=== PATIENT | male | born 1930 | race Caucasian/White ===

== ENCOUNTER 2018-01-18 12:30 | Emergency (ER) | payer OTHER, BC ==
[2018-01-18 13:28] LABS: Absolute Lymphocytes (CBC) 2.7 K/uL (0.7-4.9); Absolute Monocytes 0.7 K/uL (0.1-1.3); Absolute Neutrophil 6.7 K/uL (1.8-8.0); Basophils % 0.6 % (0-1.3); Eosinophils % 2.2 % (0-4.4); Lymphocytes % 25.9 % (15.3-44.8); MCH 31.9 pg (27.0-35.0); MCV 91.3 fL (80-100); MPV 9.4 fL (7.6-11.3); Monocytes % 6.8 % (3.3-12.3); RBC Red Blood Cell Count 4.16 M/uL (4.33-5.43)
[2018-01-18 13:36] LABS: Protime INR 1.02
[2018-01-18] MEDS ORDERED: ASPIRIN 81 MG CHEWABLE TABLET ONE (14:25)
--- NOTE | 2018-01-18 14:30 | RAD REPORT ---
EXAM DESCRIPTION: RAD - Chest Single View - 01/18/2018 2:05 pm CLINICAL HISTORY: Abnormal EKG, history of atrial fibrillation, dementia and hypertension COMPARISON: November 2015, June 2016 TECHNIQUE: AP portable chest image was obtained 1339 hours . FINDINGS: Fibrotic lung changes are present similar to the comparison. No superimposed failure, infi ltrate or mass. Pacemaker is in place similar to comparison. Heart and vasculature are normal. No grisel surable pleural effusion and no pneumothorax. No gross bony abnormality seen. No acute aortic finding s suspected. IMPRESSION: Fibrotic lung pattern similar to comparison. No acute finding.
[2018-01-18 14:41] LABS: Albumin 4.4 g/dL (3.4-5.0); Bilirubin Direct 0.1 mg/dL (0-0.2); Bilirubin Total 0.5 mg/dL (0.2-1.0); CKMB Creatine Kinase MB 1.5 ng/mL (0.3-3.6); Magnesium 2.4 mg/dL (1.8-2.4); Potassium 3.9 mmol/L (3.5-5.1); Protein, Total 8.4 g/dL (6.4-8.2)
--- NOTE | 2018-01-18 14:46 | EKG ---
Test Date: 2018-01-18 Test Time: 12:45:46 Security Consultant: DEEPAK MEASUREMENT RESULTS: Intervals: Rate: 68 [place]: 186 QRSD: 148 QT: 428 QTc: 455 [place]: P: 40 [place]: 186 QRS: -83 T: 71 INTERPRETIVE STATEMENTS: AV dual-paced rhythm Abnormal ECG Compared to ECG 07/14/2016 11:40:30 Atrial-sensed ventricular-paced complex(es) or rhythm no longer present Electronically Signed On 01-18-18 14:44:58 CDT by Beto Smith
--- NOTE | 2018-01-18 14:47 | ER ---
Nurse's Notes [facility] Name: Brigido Hargrove Age: 87 yrs Sex: Male : 1930 Arrival Date: 01/18/2018 Time: 12:33 Bed 19 Private MD: Diagnosis: Supraventricular tachycardia;Palpitations;Atrial fibrillation and flutter Presentation: 01/18 12:45 Presenting complaint: Patient states: [facility]. Denies chest pain aj or SOB. Transition of care: patient was not received from another setting of care. Onset of symptoms was January 18, 2018. Risk Assessment: Do you want to hurt yourself or someone else? Patient reports no desire to harm self or others. Initial Sepsis Screen: Does the patient meet any 2 criteria? No. Patient's initial sepsis screen is negative. Does the patient have a suspected source of infection? No. Patient's initial sepsis screen is negative. Care prior to arrival: None. 12:45 Method Of Arrival: Ambulatory aj 12:45 Acuity: DAVID 3 aj Triage Assessment: 12:48 General: Appears in no apparent distress. comfortable, Behavior is calm, cooperative, aj appropriate for age. Pain: Denies pain. Neuro: Level of Consciousness is awake, alert, obeys commands, Oriented to person, place, time, situation, Appropriate for age. Cardiovascular: Denies chest pain, shortness of breath, Capillary refill < 3 seconds in bilateral fingers Patient's skin is warm and dry. Respiratory: Airway is patent Trachea midline Respiratory effort is even, unlabored, Respiratory pattern is regular, symmetrical. Derm: Skin is intact, is healthy with good turgor, Skin is pink, warm \T\ dry. normal. Historical: - Allergies: 12:48 No Known Allergies; aj - Home Meds: 12:48 aspirin 81 mg Oral chew 1 tab once daily [Active]; simvastatin 10 mg Oral tab 1 tab aj once daily [Active]; metoprolol tartrate 50 mg Oral tab 1 tab once daily [Active]; finasteride 5 mg oral tab 1 tab once daily [Active]; sotalol 80 mg oral tab daily [Active]; Verapamil 20mg Oral once daily [Active]; folic acid 1 mg Oral tab 1 tab once daily [Active]; tamsulosin 0.4 mg oral cp24 1 cap once daily [Active]; - PMHx: 12:48 Atrial Fib; Dementia; Glaucoma; Hyperlipidemia; Hypertension; aj - PSHx: 12:48 pacemaker placed; aj - Immunization history:: Adult Immunizations up to date. - Social history:: Smoking status: Patient/guardian denies using tobacco. - Ebola Screening: : Patient negative for fever greater than or equal to 101.5 degrees Fahrenheit, and additional compatible Ebola Virus Disease symptoms Patient denies exposure to infectious person Patient denies travel to an Ebola-affected area in the 21 days before illness onset No symptoms or risks identified at this time. - Family history:: not pertinent, pertinent for. Screenin:51 Abuse screen: Denies threats or abuse. Nutritional screening: No deficits noted. tw2 Tuberculosis screening: No symptoms or risk factors identified. Fall Risk None identified. Assessment: 12:51 General: Appears in no apparent distress. well groomed, Behavior is calm, cooperative, tw2 appropriate for age. Pain: Denies pain. Neuro: Level of Consciousness is awake, alert, obeys commands, Oriented to person, place, time, situation. Cardiovascular: Denies chest pain, shortness of breath. Respiratory: Airway is patent Respiratory effort is even, unlabored, Respiratory pattern is regular, symmetrical, Breath sounds are clear bilaterally. GI: No signs and/or symptoms were reported involving the gastrointestinal system. Abdomen is flat, Bowel sounds present X 4 quads. : No signs and/or symptoms were reported regarding the genitourinary system. EENT: No signs and/or symptoms were reported regarding the EENT system. Derm: No signs and/or symptoms reported regarding the dermatologic system. Skin is intact, is healthy with good turgor, Skin is dry. Musculoskeletal: Range of motion: intact in all extremities. 13:35 Reassessment: Patient appears in no apparent distress at this time. No changes from tw2 previously documented assessment. Patient and/or family updated on plan of care and expected duration. Pain level reassessed. Patient is alert, oriented x 3, equal unlabored respirations, skin warm/dry/pink. 14:19 Reassessment: Patient appears in no apparent distress at this time. No changes from tw2 previously documented assessment. Patient and/or family updated on plan of care and expected duration. Pain level reassessed. Patient is alert, oriented x 3, equal unlabored respirations, skin warm/dry/pink. 15:08 Reassessment: Patient appears in no apparent distress at this time. No changes from tw2 previously documented assessment. Patient and/or family updated on plan of care and expected duration. Pain level reassessed. Patient is alert, oriented x 3, equal unlabored respirations, skin warm/dry/pink. 15:19 Reassessment: Patient appears in no apparent distress at this time. No changes from tw2 previously documented assessment. Patient and/or family updated on plan of care and expected duration. Pain level reassessed. Patient is alert, oriented x 3, equal unlabored respirations, skin warm/dry/pink. Vital Signs: 12:48 BP 189 / 102; Pulse 73; Resp 16; Temp 98.2; Pulse Ox 97% on R/A; Weight 83.91 kg; Height 5 ft. 10 in. (177.80 cm); 13:00 BP 162 / 70; Pulse 60; Resp 17; Pulse Ox 97% on R/A; tw2 13:35 BP 161 / 70; Pulse 60; Resp 14; Pulse Ox 97% on R/A; tw2 14:19 BP 178 / 76; Pulse 60; Resp 14; Pulse Ox 100% on R/A; tw2 15:08 BP 187 / 77; Pulse 60; Resp 17; Pulse Ox 97% on R/A; tw2 12:48 Body Mass Index 26.54 (83.91 kg, 177.80 cm) ED Course: 12:33 Patient arrived in ED. mr 12:43 Harrison Uriostegui MD is Attending Physician. [facility] 12:45 Triage completed. 12:45 Inserted saline lock: 22 gauge in right antecubital area, using aseptic technique. tw2 Blood collected. 12:48 Arm band placed on right ankle. Patient placed in an exam room. EKG completed in triage. Results shown to MD. 12:50 Domi Marte, JESSICA is Primary Nurse. tw2 12:51 Placed in gown. Bed in low position. Side rails up X 1. Adult w/ patient. Cardiac tw2 monitor on. Pulse ox on. NIBP on. 12:53 EKG done, by pathological technician. reviewed by Harrison Uriostegui MD. at1 14:03 X-ray completed. Portable x-ray completed in exam room. Patient tolerated procedure ml well. 14:05 XRAY Chest (1 view) In Process Unspecified. EDMS 14:46 Beto Smith MD is Referral Physician. [facility] 15:19 No provider procedures requiring assistance completed. IV discontinued, intact, tw2 bleeding controlled, No redness/swelling at site. Pressure dressing applied. Administered Medications: 14:23 Drug: Aspirin 81 mg Route: PO; tw2 14:45 Follow up: Response: No adverse reaction tw2 14:45 Drug: Sotalol 80 mg Route: PO; tw2 15:19 Follow up: Response: No adverse reaction tw2 Outcome: 14:46 Discharge ordered by . thong 15:20 Discharged to home ambulatory, with family. tw2 15:20 Condition: stable 15:20 Discharge instructions given to patient, family, Instructed on discharge instructions, follow up and referral plans. medication usage, Demonstrated understanding of instructions, follow-up care, medications, Prescriptions given X 1. 15:20 Patient left the ED. tw2 Signatures: Dispatcher [employer] EDWY Teresita Looney, RN Harrison Lomeli MD MD cha Rivera, Maria mr Lopez, Teresita Mota, waste examiner EKG Tat1 Domi Marte RN RN tw2
--- NOTE | 2018-01-18 14:47 | EDPHYS ---
Physician Documentation [facility] Name: Brigido Hargrove Age: 87 yrs Sex: Male : 1930 Arrival Date: 01/18/2018 Time: 12:33 Bed 19 Private MD: ED Physician Harrison Uriostegui HPI: 01/18 14:19 This 87 yrs old Male presents to ER via Ambulatory with complaints of thong Abnormal EKG. 14:19 The patient presents with a history of heart racing. Context: The symptoms occur. thong Onset: The symptoms/episode began/occurred just prior to arrival, this morning. Duration: The patient or guardian reports a single episode, that lasted 30 minute(s). Modifying factors: The symptoms are aggravated by nothing. The symptoms are alleviated by nothing. Associated signs and symptoms: The patient has no apparent associated signs or symptoms. Severity of symptoms: At their worst the symptoms were mild in the emergency department the symptoms are unchanged. The patient has not experienced similar symptoms in the past. Historical: - Allergies: 12:48 No Known Allergies; aj - Home Meds: 12:48 aspirin 81 mg Oral chew 1 tab once daily [Active]; simvastatin 10 mg Oral tab 1 tab aj once daily [Active]; metoprolol tartrate 50 mg Oral tab 1 tab once daily [Active]; finasteride 5 mg oral tab 1 tab once daily [Active]; sotalol 80 mg oral tab daily [Active]; Verapamil 20mg Oral once daily [Active]; folic acid 1 mg Oral tab 1 tab once daily [Active]; tamsulosin 0.4 mg oral cp24 1 cap once daily [Active]; - PMHx: 12:48 Atrial Fib; Dementia; Glaucoma; Hyperlipidemia; Hypertension; aj - PSHx: 12:48 pacemaker placed; aj - Immunization history:: Adult Immunizations up to date. - Social history:: Smoking status: Patient/guardian denies using tobacco. - Ebola Screening: : Patient negative for fever greater than or equal to 101.5 degrees Fahrenheit, and additional compatible Ebola Virus Disease symptoms Patient denies exposure to infectious person Patient denies travel to an Ebola-affected area in the 21 days before illness onset No symptoms or risks identified at this time. - Family history:: not pertinent, pertinent for. ROS: 14:19 Constitutional: Negative for fever, chills, and weight loss, Eyes: Negative for injury, thong pain, redness, and discharge, ENT: Negative for injury, pain, and discharge, Neck: Negative for injury, pain, and swelling, Respiratory: Negative for shortness of breath, cough, wheezing, and pleuritic chest pain, Abdomen/GI: Negative for abdominal pain, nausea, vomiting, diarrhea, and constipation, Back: Negative for injury and pain, : Negative for injury, bleeding, discharge, and swelling, MS/Extremity: Negative for injury and deformity, Skin: Negative for injury, rash, and discoloration, Neuro: Negative for headache, weakness, numbness, tingling, and seizure, Psych: Negative for depression, anxiety, suicide ideation, homicidal ideation, and hallucinations, Allergy/Immunology: Negative for hives, rash, and allergies, Endocrine: Negative for neck swelling, polydipsia, polyuria, polyphagia, and marked weight changes, Hematologic/Lymphatic: Negative for swollen nodes, abnormal bleeding, and unusual bruising. 14:19 Cardiovascular: Positive for palpitations. Exam: 14:19 Constitutional: This is a well developed, well nourished patient who is awake, alert, thong and in no acute distress. Head/Face: Normocephalic, atraumatic. Eyes: Pupils equal round and reactive to light, extra-ocular motions intact. Lids and lashes normal. Conjunctiva and sclera are non-icteric and not injected. Cornea within normal limits. Periorbital areas with no swelling, redness, or edema. ENT: Nares patent. No nasal discharge, no septal abnormalities noted. Tympanic membranes are normal and external auditory canals are clear. Oropharynx with no redness, swelling, or masses, exudates, or evidence of obstruction, uvula midline. Mucous membranes moist. Neck: Trachea midline, no thyromegaly or masses palpated, and no cervical lymphadenopathy. Supple, full range of motion without nuchal rigidity, or vertebral point tenderness. No Meningismus. Chest/axilla: Normal chest wall appearance and motion. Nontender with no deformity. No lesions are appreciated. Cardiovascular: Regular rate and rhythm with a normal S1 and S2. No gallops, murmurs, or rubs. Normal PMI, no JVD. No pulse deficits. Respiratory: Lungs have equal breath sounds bilaterally, clear to auscultation and percussion. No rales, rhonchi or wheezes noted. No increased work of breathing, no retractions or nasal flaring. Abdomen/GI: Soft, non-tender, with normal bowel sounds. No distension or tympany. No guarding or rebound. No evidence of tenderness throughout. Back: No spinal tenderness. No costovertebral tenderness. Full range of motion. Male : Normal genitalia with no discharge or lesions. Skin: Warm, dry with normal turgor. Normal color with no rashes, no lesions, and no evidence of cellulitis. MS/ Extremity: Pulses equal, no cyanosis. Neurovascular intact. Full, normal range of motion. Neuro: Awake and alert, GCS 15, oriented to person, place, time, and situation. Cranial nerves II-XII grossly intact. Motor strength 5/5 in all extremities. Sensory grossly intact. Cerebellar exam normal. Normal gait. Psych: Awake, alert, with orientation to person, place and time. Behavior, mood, and affect are within normal limits. Vital Signs: 12:48 BP 189 / 102; Pulse 73; Resp 16; Temp 98.2; Pulse Ox 97% on R/A; Weight 83.91 kg; aj Height 5 ft. 10 in. (177.80 cm); 13:00 BP 162 / 70; Pulse 60; Resp 17; Pulse Ox 97% on R/A; tw2 13:35 BP 161 / 70; Pulse 60; Resp 14; Pulse Ox 97% on R/A; tw2 14:19 BP 178 / 76; Pulse 60; Resp 14; Pulse Ox 100% on R/A; tw2 15:08 BP 187 / 77; Pulse 60; Resp 17; Pulse Ox 97% on R/A; tw2 12:48 Body Mass Index 26.54 (83.91 kg, 177.80 cm) aj MDM: 12:43 Patient medically screened. [facility] 14:20 Data reviewed: vital signs, nurses notes, lab test result(s), EKG, radiologic studies, thong plain films. 01/18 13:11 Order name: Basic Metabolic Panel [facility] 01/18 13:11 Order name: CBC with Diff; Complete Time: 14:15 [facility] 01/18 13:11 Order name: Ckmb; Complete Time: 14:44 tw 01/18 13:11 Order name: CPK; Complete Time: 14:44 01/18 13:11 Order name: LFT's; Complete Time: 14:44 tw2 01/18 13:11 Order name: Magnesium; Complete Time: 14:44 01/18 13:11 Order name: NT PRO-BNP; Complete Time: 14:44 01/18 13:11 Order name: PT-INR; Complete Time: 14:15 01/18 13:11 Order name: Ptt, Activated; Complete Time: 14:15 01/18 13:11 Order name: Troponin (emerg Dept Use Only); Complete Time: 14:15 01/18 13:11 Order name: XRAY Chest (1 view); Complete Time: 14:40 tw2 01/18 13:11 Order name: Basic Metabolic Panel; Complete Time: 14:44 EDMS 01/18 13:13 Order name: TSH [facility] 01/18 13:14 Order name: Thyroid Stimulating Hormone; Complete Time: 14:40 EDMS 01/18 13:11 Order name: EKG; Complete Time: 13:12 01/18 13:11 Order name: Cardiac monitoring; Complete Time: 13:11 01/18 13:11 Order name: EKG - Nurse/Tech; Complete Time: 13:12 01/18 13:11 Order name: IV Saline Lock; Complete Time: 13:11 01/18 13:11 Order name: Labs collected and sent; Complete Time: 13:11 01/18 13:11 Order name: O2 Per Protocol; Complete Time: 13:12 01/18 13:11 Order name: O2 Sat Monitoring; Complete Time: 13:12 tw Administered Medications: 14:23 Drug: Aspirin 81 mg Route: PO; 2 14:45 Follow up: Response: No adverse reaction 14:45 Drug: Sotalol 80 mg Route: PO; tw2 15:19 Follow up: Response: No adverse reaction tw Disposition: 01/18/18 14:46 Discharged to Home. Impression: Supraventricular tachycardia, Palpitations, Atrial fibrillation and flutter. - Condition is Stable. - Discharge Instructions: Atrial Fibrillation, Palpitations, Paroxysmal Supraventricular Tachycardia, Paroxysmal Supraventricular Tachycardia, [id number], Aspirin and Your Heart, Palpitations, [id number], Atrial Fibrillation, [id number]. - Prescriptions for sotalol 80 mg Oral tablet - take 1 tablet by ORAL route 3 times per day; 60 tablet. - Medication Reconciliation Form, Thank You Letter, Antibiotic Education, Prescription Opioid Use form. - Follow up: Private Physician; When: 2 - 3 days; Reason: Recheck today's complaints, Continuance of care, Re-evaluation by your physician. Follow up: Beto Smith MD; When: 1 - 2 days; Reason: Recheck today's complaints, Continuance of care, Re-evaluation by your physician. - Problem is new. - Symptoms have improved. Signatures: Dispatcher [employer] EDMS Teresita Looney RN RN Harrison Santos MD MD cha Wise, Tara, RN RN tw2 Corrections: (The following items were deleted from the chart) 15:20 14:46 01/18/2018 14:46 Discharged to Home. Impression: Supraventricular tachycardia; tw2 Palpitations; Atrial fibrillation and flutter. Condition is Stable. Discharge Instructions: Atrial Fibrillation, Palpitations, Paroxysmal Supraventricular Tachycardia, Paroxysmal Supraventricular Tachycardia, [id number], Aspirin and Your Heart, Palpitations, [id number]-[id number], Atrial Fibrillation, Dejv-re-Sptr. Prescriptions for sotalol 80 mg Oral tablet - take 1 tablet by ORAL route 3 times per day; 60 tablet. and Forms are Medication Reconciliation Form, Thank You Letter, Antibiotic Education, Prescription Opioid Use. Follow up: Private Physician; When: 2 - 3 days; Reason: Recheck today's complaints, Continuance of care, Re-evaluation by your physician. Follow up: Beto Smith; When: 1 - 2 days; Reason: Recheck today's complaints, Continuance of care, Re-evaluation by your physician. Problem is new. Symptoms have improved. thong
[2018-01-18] MEDS ORDERED: SOTALOL HCL 80 MG TAB ONE (14:48)
[2018-01-18 15:26] VITALS: TEMP 98.2
[2018-01-18 15:30] VITALS: BP 187/77; O2SAT 97
== END 2018-01-18 15:20 | disposition home or self-care (01) ==
LOC: ER 12:30
DX: I47.1 Supraventricular tachycardia (principal); I48.91 Unspecified atrial fibrillation; E78.5 Hyperlipidemia, unspecified; I10 Essential (primary) hypertension; F03.90 Unspecified dementia, unspecified severity, without behavioral disturbance, psychotic disturbance, mood disturbance, and anxiety; Z95.0 Presence of cardiac pacemaker
CPT/HCPCS: 36415; 71045; 80048; 80076; 82550; 82553; 83735; 83880; 84443; 84484; 85025; 85610; 85730; 93005; 99285

== ENCOUNTER 2018-08-31 15:50 | Inpatient (IN) | payer OTHER, BC ==
[2018-08-31 17:19] LABS: Absolute Lymphocytes (CBC) 1.5 K/uL (0.7-4.9); Absolute Monocytes 1.7 K/uL (0.1-1.3); Absolute Neutrophil 19.8 K/uL (1.8-8.0); Basophils % 0.3 % (0-1.3); Hematocrit 42.1 % (39.6-49.0); Lymphocytes % 6.7 % (15.3-44.8); MPV 9.2 fL (7.6-11.3); Monocytes % 7.4 % (3.3-12.3); RBC Red Blood Cell Count 4.54 M/uL (4.33-5.43)
[2018-08-31 17:24] LABS: Protime INR 1.13
[2018-08-31] MEDS ORDERED: NA CHLORIDE 0.9% 1,000 ML ONE ×2 (17:27→20:00)
[2018-08-31 17:44] LABS: ALT/SGPT 68 U/L (12-78); AST/SGOT 43 U/L (15-37); Albumin 3.4 g/dL (3.4-5.0); Alkaline Phosphatase 129 U/L (45-117); BUN Blood Urea Nitrogen 50 mg/dL (7-18); Bicarbonate 23 mmol/L (21-32); Bilirubin Direct 0.3 mg/dL (0-0.2); Bilirubin Total 0.9 mg/dL (0.2-1.0); Glucose Level 167 mg/dL (74-106); Magnesium 2.8 mg/dL (1.8-2.4); NT PRO-BNP 8631 pg/mL (<450); Potassium 4.7 mmol/L (3.5-5.1); Protein, Total 7.9 g/dL (6.4-8.2); Sodium Level 138 mmol/L (136-145); Troponin (Emerg Dept Use Only) < 0.02 ng/mL (0.0-0.045)
[2018-08-31 17:49] LABS: Urine Blood 2+ (NEG); Urine Glucose NEGATIVE (NEG); Urine Protein 1+ (NEG); Urine Specific Gravity 1.025 (1.005-1.030)
--- NOTE | 2018-08-31 17:51 | RAD REPORT ---
EXAM DESCRIPTION: CT - Head Brain Wo Cont - 08/31/2018 5:42 pm CLINICAL HISTORY: Weakness, lethargy, transient alteration of awareness COMPARISON: December 2008 TECHNIQUE: Axial 5 mm thick images of the head were obtained without IV contrast. All CT scans are performed using dose optimization technique as appropriate and may include automated exposure control or mA/KV adjustment according to patient size. FINDINGS: No intracranial hemorrhage, mass, edema or shift of mid-line structures. No acute cortical based infarction. No cortical edema or sulcal effacement. Patient has advanced atrophy and chronic i schemic change with ventricles in proportion. No abnormal extra-axial fluid collections. Intracranial findings showing some progression from 2008. Mastoid air cells and visualized portions of the paranasal sinuses are clear. No acute bony findings. IMPRESSION: No hemorrhage, mass or acute intracranial finding. Prominent atrophy and chronic ischemic changes are present progressive from 2008. Ventricles are in p roportion.
--- NOTE | 2018-08-31 17:52 | RAD REPORT ---
EXAM DESCRIPTION: RAD - Chest Single View - 08/31/2018 4:34 pm CLINICAL HISTORY: Shortness of breath, cough COMPARISON: December 2017 TECHNIQUE: AP portable chest image was obtained 1630 hours . FINDINGS: Lung volumes are low. No peripheral mass or consolidation. No failure or volume overload. Interstitial pattern is not clearly different from comparison. Heart and vasculature are normal. No m easurable pleural effusion and no pneumothorax. No acute bony abnormality seen. No acute aortic findi ngs suspected. IMPRESSION: Shallow inspiration film showing no acute cardiopulmonary finding. No significant change from comparison.
[2018-08-31 17:53] LABS: Urine Amorphous Sediment 1+ /HPF (NONE SEEN); Urine Bacteria <20 /HPF (NONE SEEN); Urine Culture Reflex Order NOT NEEDED
[2018-08-31 18:08] LABS: Blood Morphology Comment NOT SEEN (NOT SEEN); Platelet Estimate ADEQ
--- NOTE | 2018-08-31 19:07 | RAD REPORT ---
EXAM DESCRIPTION: CT - Chest Abd Pelvis Wo Con - 08/31/2018 6:40 pm CLINICAL HISTORY: Chest pain, abdominal pain, acute renal failure, leukocytosis, altered mental stat us COMPARISON: None. TECHNIQUE: Axial 5 millimeter thick images of the chest abdomen and pelvis were obtained without ora l or IV contrast. All CT scans are performed using dose optimization technique as appropriate and may include automated exposure control or mA/KV adjustment according to patient size. FINDINGS: Airspace opacification is present posterior gutter on the right. There is trace stranding in the posterior gutter on the left. Lung devi are otherwise clear. No pneumothorax or pleural effu fei. No chest wall mass or abnormal axillary lymphadenopathy seen. Mediastinal and hilar regions s how no mass or lymphadenopathy. No significant cardiac finding. The liver, spleen and pancreas show no significant findings. Gallbladder and biliary tree are normal . Gallstones can be occult on CT imaging. No hydronephrosis present. No obstructing or nonobstructing calculi. Along the anteromedial margin mi d right kidney there is a 2.0 x 1.5 centimeter low-density mass. This is in proximity to the renal va sculature. Attenuation value is low at 9 Hounsfield units. This is probably an exophytic cyst. Assess ment is limited in the absence of contrast. No adrenal abnormalities. No urinary bladder abnormaliti es. Prostate gland is mildly prominent. No gastric dilatation or wall thickening. No dilated small bowel loops. There several fluid-filled sm all bowel loops that are nonspecific. Appendicitis is not suspected. Hernandez of the rectum and distal s igmoid colon are prominent. There is soft tissue attenuation in the presacral soft tissues. Small saran unt of ascites is present. Fluid adjacent to the spleen measures 5 Hounsfield units. Intraperitoneal blood is not suspected. There is a minimal amount of ascites adjacent to the liver capsule. No free air or pneumatosis. No mass or bulky lymphadenopathy. Disc and bony degenerative changes are present. No pathologic bone process seen. IMPRESSION: Posterior right lung base pneumonia. Mild wall thickening of the rectum and distal sigmoid colon. This may be an nonspecific proctitis/col itis. No colon mass confirmed. Patient has a small amount of ascites present and congestion or edema in the presacral soft tissues n ear the rectum. Patient has a few prominent small bowel loops that could indicated nonspecific enteritis. No bowel ob struction.
--- NOTE | 2018-08-31 19:29 | EDPHYS ---
Physician Documentation [facility] Name: Brigido Hargrove Age: 87 yrs Sex: Male : 1930 Arrival Date: 08/31/2018 Time: 15:55 Bed 20 Private MD: ED Physician Harrison Uriostegui HPI: 08/31 16:25 This 87 yrs old Male presents to ER via EMS with complaints of Lethargy. cp 16:25 The patient's problem is reported as weakness, that is generalized. cp 16:25 Onset: The symptoms/episode began/occurred gradually, and became worse today. Duration: cp The episode is continuous. Associated signs and symptoms: Pertinent positives: bowel incontinence, Pertinent negatives: abdominal pain, chest pain, headache, vomiting. Patient's baseline: Neuro: orientated to person, place, Motor: no deficits, Ambulation: walks without assistance, Speech: normal. Historical: - Allergies: 17:42 Aspirin; hb - Home Meds: 16:00 aspirin 81 mg Oral chew 1 tab once daily [Active]; finasteride 5 mg Oral tab 1 tab once hb daily [Active]; folic acid 1 mg Oral tab 1 tab once daily [Active]; metoprolol tartrate 50 mg Oral tab 1 tab once daily [Active]; simvastatin 10 mg Oral tab 1 tab once daily [Active]; sotalol 80 mg Oral tab daily [Active]; tamsulosin 0.4 mg Oral cp24 1 cap once daily [Active]; Verapamil 20mg Oral once daily [Active]; - PMHx: 16:00 Glaucoma; Atrial Fib; Dementia; Hyperlipidemia; Hypertension; hb - PSHx: 16:00 pacemaker placed; hb - Immunization history:: Adult Immunizations up to date. - Social history:: Smoking status: Patient/guardian denies using tobacco. - Ebola Screening: : No symptoms or risks identified at this time. ROS: 16:30 Constitutional: Positive for poor PO intake, Negative for body aches, fever. cp 16:30 Eyes: Negative for injury, pain, redness, and discharge. cp 16:30 ENT: Negative for drainage from ear(s), ear pain, sore throat, difficulty swallowing, difficulty handling secretions. 16:30 Cardiovascular: Negative for chest pain, edema. 16:30 Respiratory: Negative for cough, shortness of breath, wheezing. 16:30 Abdomen/GI: Positive for bowel incontinence, Negative for abdominal pain, vomiting, black/tarry stool, rectal bleeding. 16:30 : Negative for urinary symptoms. 16:30 Neuro: Positive for altered mental status, weakness, Negative for headache. 16:30 All other systems are negative. Exam: 16:35 Constitutional: The patient appears in no acute distress, alert, awake, cp non-diaphoretic, non-toxic, well developed, well nourished. 16:35 Head/Face: Normocephalic, atraumatic. cp 16:35 Eyes: Periorbital structures: appear normal, Pupils: equal, round, and reactive to cp light and accomodation, Extraocular movements: intact throughout, Conjunctiva: normal, no exudate, no injection, Sclera: no appreciated abnormality, Lids and lashes: appear normal, bilaterally. 16:35 ENT: External ear(s): are unremarkable, Ear canal(s): are normal, clear, TM's: are normal, no evidence of bulging, no erythema, dullness, bilaterally, Nose: is normal, Mouth: Lips: dry, Oral mucosa: dry, Posterior pharynx: Airway: no evidence of obstruction, patent, swelling, is not appreciated, erythema, is not appreciated, exudate, is not appreciated. 16:35 Neck: ROM/movement: is normal, is supple, without pain, no range of motions limitations, no meningismus, no nuchal rigidity. 16:35 Chest/axilla: Inspection: normal, Palpation: is normal, no crepitus, no tenderness. 16:35 Cardiovascular: Rate: normal, Rhythm: regular, Edema: is not appreciated, JVD: is not cp appreciated. 16:35 Respiratory: the patient does not display signs of respiratory distress, Respirations: normal, no use of accessory muscles, no retractions, no splinting, no tachypnea, labored breathing, is not present, Breath sounds: are clear throughout, no decreased breath sounds, no stridor, no wheezing. 16:35 Abdomen/GI: Inspection: abdomen appears normal, Bowel sounds: active, all quadrants, Palpation: soft, in all quadrants, mild abdominal tenderness, in the right upper quadrant and right lower quadrant, rebound tenderness, is not appreciated, involuntary guarding, is elicited in the right lower quadrant. 16:35 Skin: Appearance: dry, flaky, cellulitis, is not appreciated. 16:35 Neuro: Orientation: to person, place, situation, Mentation: responsive to voice able to follow commands, Motor: moves all fours, general weakness w/o focal deficits. 16:38 ECG was reviewed by the Attending Physician. cp 17:55 Radiologist reports: no acute findings Vital Signs: 15:58 BP 153 / 67; Pulse 81; Resp 16; Temp 98.2; Pulse Ox 97% on R/A; Pain 0/10; hb 17:00 BP 148 / 68; Pulse 74; Resp 16; Pulse Ox 100% on R/A; hb 18:15 BP 158 / 74; Pulse 75; Resp 16; Pulse Ox 99% on R/A; Pain 0/10; hb 19:00 BP 142 / 48; Pulse 72; Resp 23; Temp 98.1(TE); Pulse Ox 98% on R/A; Pain 0/10; ed1 20:00 BP 139 / 52; Pulse 71; Resp 21; Pulse Ox 96% on R/A; Pain 0/10; ed1 21:09 BP 139 / 40; Pulse 81; Resp 20; Temp 98.2(TE); Pulse Ox 98% on R/A; Pain 0/10; ed1 22:23 BP 131 / 49; Pulse 73; Resp 20; Temp 97.6(TE); Pulse Ox 98% on R/A; Pain 0/10; ed1 MDM: 16:11 Patient medically screened. 19:15 Data reviewed: vital signs, nurses notes, lab test result(s), EKG, radiologic studies, cp CT scan, plain films, I have discussed the patient's presentation/case with the attending Emergency Department Physician;. 19:15 Test interpretation: by ED physician or midlevel provider: ECG, plain radiologic cp studies. 19:25 Physician consultation: Johann Kelsey MD was called at 19:20, was contacted at 19:20, regarding admission, to the medical/surgical unit. patient's condition. 08/31 16:20 Order name: Basic Metabolic Panel; Complete Time: 17:49 08/31 17:50 Interpretation: Normal except: GLUC 167; BUN 50; CRE 2.75; GFR 22; CA 8.4. 08/31 16:20 Order name: CBC with Diff; Complete Time: 18:25 cp 08/31 17:55 Interpretation: Normal except: WBC 23.2; SHANEKA% 85.6; LYM% 6.7; NEUT A 19.8; MNA 1.7. cp 08/31 16:20 Order name: LFT's; Complete Time: 17:49 cp 08/31 18:25 Interpretation: Normal except: AST 43; ALK 129; BILID 0.3; GLOB 4.5; A/G 0.8. cp 08/31 16:20 Order name: Magnesium; Complete Time: 17:49 cp 08/31 16:20 Order name: NT PRO-BNP; Complete Time: 17:49 cp 08/31 17:54 Interpretation: Abnormal: NT PRO-BNP 8631. cp 08/31 16:20 Order name: PT-INR; Complete Time: 17:49 cp 08/31 16:20 Order name: Troponin (emerg Dept Use Only); Complete Time: 17:49 cp 08/31 18:26 Interpretation: Abnormal: TROPED < 0.02. cp 08/31 17:15 Order name: Urine Microscopic Only; Complete Time: 17:54 dm5 08/31 17:36 Order name: Urine Dipstick--Ancillary (enter results); Complete Time: 17:53 bd 08/31 17:53 Interpretation: Normal except: UBLD 2+; UPROT 1+. cp 08/31 17:51 Order name: Manual Differential; Complete Time: 18:25 EDMS 08/31 18:25 Interpretation: Normal except: BANDS [F] 14; LYM 7. cp 08/31 17:55 Order name: Procalcitonin; Complete Time: 18:55 cp 08/31 18:56 Interpretation: Abnormal: Procalcitonin 36.27. cp 08/31 17:55 Order name: Lactate; Complete Time: 18:47 cp 08/31 17:55 Order name: Blood Culture Adult (2) cp 08/31 19:15 Order name: Urine Culture cp 08/31 16:20 Order name: XRAY Chest (1 view); Complete Time: 17:54 cp 08/31 17:18 Order name: CT Head Brain wo Cont; Complete Time: 17:54 cp 08/31 18:00 Order name: CT Chest Abdomen Pelvis W/O Contrast; Complete Time: 19:08 cp 08/31 21:08 Order name: Comprehensive Metabolic Panel EDMS 08/31 21:08 Order name: Comprehensive Metabolic Panel; Complete Time: 20:12 EDMS 08/31 21:08 Order name: Lipid Profile EDMS 08/31 21:08 Order name: Lipid Profile; Complete Time: 20:12 EDMS 08/31 21:09 Order name: CBC with Automated Diff EDMS 08/31 21:09 Order name: CBC with Automated Diff; Complete Time: 20:12 EDMS 08/31 21:09 Order name: Magnesium EDMS 08/31 21:09 Order name: Magnesium; Complete Time: 20:12 EDMS 08/31 21:09 Order name: Phosphorus EDMS 08/31 21:09 Order name: Phosphorus; Complete Time: 20:12 EDMS 08/31 21:40 Order name: Lactate Sepsis 2 HR Follow-up; Complete Time: 20:12 EDMS 08/31 16:20 Order name: EKG; Complete Time: 16:22 cp 08/31 16:20 Order name: Cardiac monitoring; Complete Time: 17:01 cp 08/31 16:20 Order name: EKG - Nurse/Tech; Complete Time: 16:32 cp 08/31 16:20 Order name: IV Saline Lock; Complete Time: 17:15 cp 08/31 16:20 Order name: Labs collected and sent; Complete Time: 17:15 cp 08/31 16:20 Order name: O2 Per Protocol; Complete Time: 16:32 cp 08/31 16:20 Order name: O2 Sat Monitoring; Complete Time: 16:32 cp 08/31 16:20 Order name: Cath; Complete Time: 17:01 cp 08/31 19:02 Order name: Staples; Complete Time: 19:45 cp 08/31 21:09 Order name: Regular EDMS EC:38 Rate is 74 beats/min. Rhythm is regular, Paced. QRS interval is normal. T waves are cp Inverted in leads I, II, III, aVF, V2, V3, V4, V5, V6. Interpreted by me. Reviewed by me. Administered Medications: 17:20 Drug: NS 0.9% 500 ml Route: IV; Rate: bolus; Site: right antecubital; hb 17:56 Follow up: Response: No adverse reaction; IV Status: Completed infusion hb 17:56 Drug: NS 0.9% 1000 ml Route: IV; Rate: 75 ml/hr; Site: right antecubital; hb 22:50 Follow up: IV Status: Infusion continued upon admission ed1 19:06 Drug: NS 0.9% 1000 ml Route: IV; Rate: 1 bolus; Site: right antecubital; hb 20:11 Follow up: IV Status: Completed infusion; IV Intake: 1000ml ed1 19:10 Not Given (Physician Discretion): Ciprofloxacin 400 mg 200 ml IVPB once over 60 mins cp 19:54 Drug: NS 0.9% 500 ml Route: IV; Rate: bolus; Site: right forearm; ed1 20:42 Follow up: IV Status: Completed infusion; IV Intake: 500ml ed1 19:54 Drug: Rocephin 1 grams Route: IV; Rate: bolus; Site: right antecubital; ed1 20:11 Follow up: Response: No adverse reaction; IV Status: Completed infusion; IV Intake: [id number] 20:12 Drug: LevaQUIN 500 mg Volume: 100 ml; Route: IVPB; Infused Over: 60 mins; Site: right ed1 antecubital; 21:15 Follow up: Response: No adverse reaction; IV Status: Completed infusion ed1 20:44 Drug: metroNIDAZOLE 500 mg Volume: 100 ml; Route: IVPB; Infused Over: 30 mins; Site: ed1 right forearm; 21:20 Follow up: Response: No adverse reaction; IV Status: Completed infusion ed1 Disposition: 09/01 07:55 Co-signature as Attending Physician, Harrison Uriostegui MD I agree with the assessment and thong plan of care. Disposition: 08/31/18 19:28 Hospitalization ordered by Johann Kelsey for Inpatient Admission. Preliminary diagnosis are Pneumonia due to other specified bacteria - Right lower lobe, Other sepsis, Sigmoid colitis, Acute kidney failure. - Bed requested for Telemetry/MedSurg (Inpatient). - Status is Inpatient Admission. ed1 - Condition is Stable. - Problem is new. - Symptoms have improved. UTI on Admission? No Signatures: Dispatcher [employer] ADRIAAL Harrison Uriostegui MD MD cha Riggs, Erika RN RN ed1 Harrison Franklin PA PA cp Garcia, Cindy, RN RN Ursula Robbins RN RN Corrections: (The following items were deleted from the chart) 08/31 17:50 17:49 Normal except: GLUC 167; BUN 50; CRE 2.75; GFR 22. cp cp 17:55 17:54 Normal except: WBC 23.2; SHANEKA% 85.6; LYM% 6.7. cp cp 19:30 19:28 Hospitalization Ordered by Johann Kelsey MD for Inpatient Admission. Preliminary cp diagnosis is Pneumonia due to other specified bacteria; Other sepsis. Bed requested for Telemetry/MedSurg (Inpatient). Status is Inpatient Admission. Condition is Stable. Problem is new. Symptoms have improved. UTI on Admission? No. cp 22:15 19:30 08/31/2018 19:28 Hospitalization Ordered by Johann Kelsey MD for Inpatient cg Admission. Preliminary diagnosis is Pneumonia due to other specified bacteria - Right lower lobe; Other sepsis; Sigmoid colitis; Acute kidney failure. Bed requested for Telemetry/MedSurg (Inpatient). Status is Inpatient Admission. Condition is Stable. Problem is new. Symptoms have improved. UTI on Admission? No. cp 22:51 22:15 08/31/2018 19:28 Hospitalization Ordered by Johann Kelsey MD for Inpatient ed1 Admission. Preliminary diagnosis is Pneumonia due to other specified bacteria - Right lower lobe; Other sepsis; Sigmoid colitis; Acute kidney failure. Bed requested for Telemetry/MedSurg (Inpatient). Status is Inpatient Admission. Condition is Stable. Problem is new. Symptoms have improved. UTI on Admission? No. cg
--- NOTE | 2018-08-31 19:29 | ER ---
Nurse's Notes [facility] Name: Brigido Hargrove Age: 87 yrs Sex: Male : 1930 Arrival Date: 08/31/2018 Time: 15:55 Bed 20 Private MD: Diagnosis: Pneumonia due to other specified bacteria-Right lower lobe;Other sepsis;Sigmoid colitis;Acute kidney failure Presentation: 08/31 15:56 Presenting complaint: EMS states: Daughter reports he is more argumentative than normal hb and is lethargic. Hx of dementia, AOx2 at baseline. SBP 120s, Paced 60, BGL 138, 22g RIGHT wrist. Transition of care: patient was not received from another setting of care. Onset of symptoms was August 31, 2018. Risk Assessment: Do you want to hurt yourself or someone else? Patient reports no desire to harm self or others. Care prior to arrival: None. 15:56 Method Of Arrival: EMS: [facility] 15:56 Acuity: DAVID 3 hb Triage Assessment: 16:05 General: Appears in no apparent distress. Behavior is calm, cooperative. Pain: Denies hb pain. EENT: No signs and/or symptoms were reported regarding the EENT system. Neuro: Level of Consciousness is awake, alert, obeys commands, confused, Oriented to person, place. Cardiovascular: Heart tones S1 S2 present Capillary refill < 3 seconds Patient's skin is warm and dry. Respiratory: Airway is patent Respiratory effort is even, unlabored, Respiratory pattern is regular, symmetrical, Breath sounds are clear bilaterally. GI: No signs and/or symptoms were reported involving the gastrointestinal system. : No signs and/or symptoms were reported regarding the genitourinary system. Derm: Skin is intact, is healthy with good turgor. Musculoskeletal: No signs and/or symptoms reported regarding the musculoskeletal system. Historical: - Allergies: 17:42 Aspirin; hb - Home Meds: 16:00 aspirin 81 mg Oral chew 1 tab once daily [Active]; finasteride 5 mg Oral tab 1 tab once hb daily [Active]; folic acid 1 mg Oral tab 1 tab once daily [Active]; metoprolol tartrate 50 mg Oral tab 1 tab once daily [Active]; simvastatin 10 mg Oral tab 1 tab once daily [Active]; sotalol 80 mg Oral tab daily [Active]; tamsulosin 0.4 mg Oral cp24 1 cap once daily [Active]; Verapamil 20mg Oral once daily [Active]; - PMHx: 16:00 Glaucoma; Atrial Fib; Dementia; Hyperlipidemia; Hypertension; hb - PSHx: 16:00 pacemaker placed; hb - Immunization history:: Adult Immunizations up to date. - Social history:: Smoking status: Patient/guardian denies using tobacco. - Ebola Screening: : No symptoms or risks identified at this time. Screenin:01 Abuse screen: Denies threats or abuse. Denies injuries from another. Nutritional hb screening: No deficits noted. Tuberculosis screening: No symptoms or risk factors identified. Fall Risk Total Guzman Fall Scale indicates High Risk Score (45 or more points). Fall prevention measures have been instituted. Side Rails Up X 2 Placed Close to Nursing Station Frequent Obs/Assessments Occuring As available patient and family educated on Fall Prevention Program and Strategies. Assessment: 16:06 General: see triage assessment. hb 17:00 Reassessment: Patient appears in no apparent distress at this time. No changes from hb previously documented assessment. Patient and/or family updated on plan of care and expected duration. Pain level reassessed. 18:00 Reassessment: Patient appears in no apparent distress at this time. No changes from hb previously documented assessment. Patient and/or family updated on plan of care and expected duration. Pain level reassessed. 19:00 Reassessment: Patient appears in no apparent distress at this time. Patient and/or ed1 family updated on plan of care and expected duration. Pain level reassessed. Neuro: Level of Consciousness is awake, alert, Oriented to person. 20:00 Reassessment: Patient appears in no apparent distress at this time. No changes from ed1 previously documented assessment. Patient and/or family updated on plan of care and expected duration. Pain level reassessed. Neuro: Level of Consciousness is awake, alert, Oriented to person. 21:09 Reassessment: Patient appears in no apparent distress at this time. No changes from ed1 previously documented assessment. Patient and/or family updated on plan of care and expected duration. Pain level reassessed. Vital Signs: 15:58 BP 153 / 67; Pulse 81; Resp 16; Temp 98.2; Pulse Ox 97% on R/A; Pain 0/10; hb 17:00 BP 148 / 68; Pulse 74; Resp 16; Pulse Ox 100% on R/A; hb 18:15 BP 158 / 74; Pulse 75; Resp 16; Pulse Ox 99% on R/A; Pain 0/10; hb 19:00 BP 142 / 48; Pulse 72; Resp 23; Temp 98.1(TE); Pulse Ox 98% on R/A; Pain 0/10; ed1 20:00 BP 139 / 52; Pulse 71; Resp 21; Pulse Ox 96% on R/A; Pain 0/10; ed1 21:09 BP 139 / 40; Pulse 81; Resp 20; Temp 98.2(TE); Pulse Ox 98% on R/A; Pain 0/10; ed1 22:23 BP 131 / 49; Pulse 73; Resp 20; Temp 97.6(TE); Pulse Ox 98% on R/A; Pain 0/10; ed1 ED Course: 15:55 Patient arrived in ED. hb 15:58 Triage completed. hb 15:59 Arm band placed on. hb 16:01 Patient has correct armband on for positive identification. Placed in gown. Bed in low hb position. Call light in reach. Side rails up X2. 16:11 Harrison Franklin PA is PHCP. cp 16:11 Harrison Uriostegui MD is Attending Physician. cp 16:14 Ursula Robbins, RN is Primary Nurse. hb 16:31 EKG done, by technical sales representatives. reviewed by Harrison BANKS. sm3 16:33 X-ray completed. Portable x-ray completed in exam room. Patient tolerated procedure az well. 16:34 XRAY Chest (1 view) In Process Unspecified. EDMS 17:02 Maintain EMS IV. Dressing intact. Site clean \T\ dry. Gauge \T\ site: no blood return, hb flushes easily. 17:05 Inserted saline lock: 20 gauge in right antecubital area, using aseptic technique. hb Blood collected. 17:42 CT Head Brain wo Cont In Process Unspecified. EDMS 18:[address] via stretcher. vm2 18:41 CT completed. Patient tolerated procedure well. Patient moved back from CT. nj 18:44 CT Chest Abdomen Pelvis W/O Contrast In Process Unspecified. EDMS 19:18 Primary Nurse role handed off by Ursula Robbins, RN ed1 19:18 OwensMariaa fernandez RN is Primary Nurse. ed1 19:28 Johann Kelsey MD is Hospitalizing Provider. cp 19:45 Staples cath inserted, using sterile technique, 16 Fr., by e learning coordinator, balloon inflated, to ed1 gravity drainage, urine specimen collected. returned clear yellow urine. Patient tolerated well. 20:00 Awaiting bed assignment. ed1 21:11 Awaiting bed assignment. ed1 22:23 No provider procedures requiring assistance completed. Patient admitted, IV remains in ed1 place. intact, No redness/swelling at site. Administered Medications: 17:20 Drug: NS 0.9% 500 ml Route: IV; Rate: bolus; Site: right antecubital; hb 17:56 Follow up: Response: No adverse reaction; IV Status: Completed infusion hb 17:56 Drug: NS 0.9% 1000 ml Route: IV; Rate: 75 ml/hr; Site: right antecubital; hb 22:50 Follow up: IV Status: Infusion continued upon admission ed1 19:06 Drug: NS 0.9% 1000 ml Route: IV; Rate: 1 bolus; Site: right antecubital; hb 20:11 Follow up: IV Status: Completed infusion; IV Intake: 1000ml ed1 19:10 Not Given (Physician Discretion): Ciprofloxacin 400 mg 200 ml IVPB once over 60 mins cp 19:54 Drug: NS 0.9% 500 ml Route: IV; Rate: bolus; Site: right forearm; ed1 20:42 Follow up: IV Status: Completed infusion; IV Intake: 500ml ed1 19:54 Drug: Rocephin 1 grams Route: IV; Rate: bolus; Site: right antecubital; ed1 20:11 Follow up: Response: No adverse reaction; IV Status: Completed infusion; IV Intake: [id number] 20:12 Drug: LevaQUIN 500 mg Volume: 100 ml; Route: IVPB; Infused Over: 60 mins; Site: right ed1 antecubital; 21:15 Follow up: Response: No adverse reaction; IV Status: Completed infusion ed1 20:44 Drug: metroNIDAZOLE 500 mg Volume: 100 ml; Route: IVPB; Infused Over: 30 mins; Site: ed1 right forearm; 21:20 Follow up: Response: No adverse reaction; IV Status: Completed infusion ed1 Intake: 20:11 IV: 1000ml; Total: 1000ml. ed1 20:11 IV: 10ml; Total: 1010ml. ed1 20:42 IV: 500ml; Total: 1510ml. ed1 Output: 22:50 Urine: 120ml (Staples); Total: 120ml. ed1 Outcome: 19:28 Decision to Hospitalize by Provider. cp 22:48 Admitted to Med/surg accompanied by tech, family with patient, via stretcher, room 220, ed1 with chart, Report called to JESSICA Yap 22:48 Condition: stable 22:48 Discharge instructions given to family, Instructed on the need for admit, Demonstrated understanding of instructions. 22:51 Patient left the ED. ed1 Signatures: Dispatcher [employer] EDMS Mariaa Owens RN RN ed1 Harrison Franklin PA PA cp Baxter, Heather, RN RN [place] [facility] Angy Toure 3 Mini Mcneal Corrections: (The following items were deleted from the chart) 17:47 17:45 BP 148 / 68; Pulse 74bpm; Resp 16bpm; Pulse Ox 100% RA; hb hb
[2018-08-31] MEDS ORDERED: Levofloxacin500mg IV 500 MG/100 ML BAG IV ONE (19:59)
[2018-08-31] MEDS ORDERED: METRONIDAZOLE 500mg IVPB 500 MG/100 ML BAG IV ONE (20:00)
[2018-08-31] MEDS ORDERED: CEFTRIAXONE/SWI 1gm 1 GM/10 ML SYR ONE (20:00)
[2018-08-31] MEDS ORDERED: IPRATROPIUM BROM 0.5MG/2.5ML NEB PRN (21:03)
[2018-08-31] MEDS ORDERED: MAGNESIUM HYDROXIDE 8% 30 ML PO PRN (21:03)
[2018-08-31] MEDS ORDERED: ONDANSETRON 4 MG/2 ML VIAL IV PRN (21:03)
[2018-08-31] MEDS ORDERED: ACETAMINOPHEN 500 MG TAB PO PRN (21:03)
[2018-08-31] MEDS ORDERED: ALBUTEROL 2.5 MG/3 ML NEB SOL NEB PRN (21:03)
[2018-08-31] MEDS: NA CHLORIDE 0.9% 1,000 ML IV SCH (23:53)
[2018-09-01 01:37] VITALS: BMI 22.9
[2018-09-01] MEDS ORDERED: SOTALOL HCL 80 MG TAB PO SCH (06:00)
[2018-09-01 06:06] LABS: Absolute Lymphocytes (CBC) 1.1 K/uL (0.7-4.9); Absolute Monocytes 1.3 K/uL (0.1-1.3); Absolute Neutrophil 15.8 K/uL (1.8-8.0); Basophils % 0.4 % (0-1.3); Hematocrit 34.7 % (39.6-49.0); Lymphocytes % 6.3 % (15.3-44.8); MPV 9.3 fL (7.6-11.3); Monocytes % 6.9 % (3.3-12.3); RBC Red Blood Cell Count 3.76 M/uL (4.33-5.43)
[2018-09-01 06:29] LABS: Albumin 2.6 g/dL (3.4-5.0); Bilirubin Total 0.6 mg/dL (0.2-1.0); Magnesium 2.5 mg/dL (1.8-2.4); Phosphorus 3.7 mg/dL (2.5-4.9); Potassium 4.2 mmol/L (3.5-5.1); Protein, Total 6.2 g/dL (6.4-8.2)
[2018-09-01] MEDS: ENOXAPARIN 30 MG/0.3 ML SQ SCH (08:30)
[2018-09-01] MEDS: CLOPIDOGREL 75 MG TABLET PO SCH (08:31)
[2018-09-01] MEDS: FINASTERIDE 5 MG TAB PO SCH (08:31)
[2018-09-01] MEDS: TAMSULOSIN 0.4 MG SR CAP PO SCH ×2 (08:31→22:09)
[2018-09-01] MEDS: SOTALOL HCL 80 MG TAB PO SCH ×2 (08:31→18:17)
[2018-09-01] MEDS ORDERED: CEFTRIAXONE 1 GM/NS 50 ML 1 GM/50 ML BAG IV SCH (09:00)
[2018-09-01] MEDS ORDERED: ENOXAPARIN 40 MG/0.4 ML SQ SCH (09:00)
[2018-09-01] MEDS ORDERED: AZITHROMYCIN IV 500 MG in NA CHLORIDE 0.9% 250 ML IVPB SCH (09:00)
[2018-09-01] MEDS ORDERED: ENOXAPARIN 30 MG/0.3 ML SQ SCH (09:00)
[2018-09-01] MEDS ORDERED: CEFTRIAXONE/SWI 1gm 1 GM/10 ML SYR IV SCH (09:00)
--- NOTE | 2018-09-01 10:33 | EKG ---
Test Date: 2018-08-31 Test Time: 16:25:36 Independent Living Instructor: VINCE MEASUREMENT RESULTS: Intervals: Rate: 74 VT: 176 QRSD: 84 QT: 434 QTc: 481 [place]: P: 53 VT: 176 QRS: 40 T: 261 INTERPRETIVE STATEMENTS: Rhythm consistent with DDD pacing tracking sinus rhythm with frequent premature atrial complexes T inversion, non specific Abnormal ECG Compared to ECG 01/18/2018 12:45:46 premature atrial complexes are now present most of the QRS complexes are fusion complexes Electronically Signed On 08-31-18 17:45:28 CDT by Breezy Larios
[2018-09-01] MEDS: NA CHLORIDE 0.9% 1,000 ML IV SCH (11:20)
--- NOTE | 2018-09-01 15:10 | P.PN ---
Subjective Date of Service: 09/01/18 Pt seen and examined at bedside. Chart Reviewed. pt currently on Bedside commode. Doing well overall overnight. This Am still continue to have Diarrhea. No other c/o Review of Systems 10-point ROS is otherwise unremarkable Physical Examination - Vital Signs Temperature: 97.5 F Blood Pressure: 138/61 Pulse: 76 Respirations: 18 Pulse Ox (%): 96 - Physical Exam General: Alert, In no apparent distress HEENT: Atraumatic, PERRLA, EOMI Neck: Supple, JVD not distended Respiratory: Clear to auscultation bilaterally, Normal air movement Cardiovascular: Regular rate/rhythm, Normal S1 S2 Gastrointestinal: Normal bowel sounds, No tenderness Musculoskeletal: No tenderness Integumentary: No rashes Neurological: Normal speech, Normal tone, Normal affect Lymphatics: No axilla or inguinal lymphadenopathy - Studies Laboratory Data (last 24 hrs) 08/31/18 17:08: PT 13.3 H, INR 1.13 08/31/18 17:08: WBC 23.2 H*, Hgb 14.2, Hct 42.1, Plt Count 273 08/31/18 17:08: Sodium 138, Potassium 4.7, BUN 50 H, Creatinine 2.75 H, Glucose 167 H, Magnesium 2.8 H, Total Bilirubin 0.9, AST 43 H, ALT 68, Alkaline Phosphatase 129 H Medications List Reviewed: Yes Assessment And Plan - Current Problems (Diagnosis) (1) Sepsis Current Visit: Yes Status: Acute Plan: Sepsis likely 2.2 to PNA and Colitis -IV Cipro and Flagyl for now -Culture pending at this time -Cdiff negative -F.u with Culture and deescalate Antibiotics -WBC trending down Qualifiers: Sepsis type: sepsis due to unspecified organism Qualified Code(s): A41.9 - Sepsis, unspecified organism (2) PNA (pneumonia) Current Visit: Yes Status: Acute Plan: Right LL PNA. Elevated WBC and Procal -IV cipro and Flagyl -Sputum Culture pending -Will monitor closely Qualifiers: Pneumonia type: due to unspecified organism Laterality: right Lung location: lower lobe of lung Qualified Code(s): J18.1 - Lobar pneumonia, unspecified organism (3) Colitis Current Visit: Yes Status: Acute Plan: Abd CT with Sigmoid Colitis including rectum -IV cipro and flagyl -Stool studies Pending. Cdiff negative -IV fluids -CLD for now (4) Atrial fibrillation Current Visit: No Status: Acute (5) Dementia Current Visit: Yes Status: Chronic Qualifiers: Dementia type: unspecified type Dementia behavioral disturbance: without behavioral disturbance Qualified Code(s): F03.90 - Unspecified dementia without behavioral disturbance (6) HTN (hypertension) Current Visit: Yes Status: Chronic Qualifiers: Hypertension type: essential hypertension Qualified Code(s): I10 - Essential (primary) hypertension (7) Hyperlipidemia Current Visit: Yes Status: Chronic Qualifiers: Hyperlipidemia type: mixed hyperlipidemia Qualified Code(s): E78.2 - Mixed hyperlipidemia - Plan Pending Clinical Improvement. Continue with IV abx and pending culture Discharge Plan: Other Plan to discharge in: Greater than 2 days - Code Status/Comfort Care Code Status Assessed: Yes Critical Care: No
[2018-09-01] MEDS: CIPROFLOXACIN 400mg IV 400 MG/200 ML BAG IV SCH (16:27)
[2018-09-01] MEDS: METRONIDAZOLE 500mg IVPB 500 MG/100 ML BAG IV SCH (16:35)
[2018-09-01] MEDS ORDERED: CIPROFLOXACIN 400mg IV 400 MG/200 ML BAG IV SCH (21:00)
[2018-09-01] MEDS: DONEPEZIL HCL 5 MG TAB PO SCH (22:09)
[2018-09-02] MEDS: NA CHLORIDE 0.9% 1,000 ML IV SCH ×2 (00:40→08:47)
[2018-09-02] MEDS: METRONIDAZOLE 500mg IVPB 500 MG/100 ML BAG IV SCH ×3 (01:35→16:27)
[2018-09-02] MEDS: SOTALOL HCL 80 MG TAB PO SCH ×2 (05:41→17:41)
--- NOTE | 2018-09-02 07:41 | P.HP ---
Certification for Inpatient Patient admitted to: Inpatient With expected LOS: >2 Midnights Patient will require the following post-hospital care: None Practitioner: I am a practitioner with admitting privileges, knowledge of patient current condition, hospital course, and medical plan of care. Services: Services provided to patient in accordance with Admission requirements found in Title 42 Section 412.3 of the Code of Federal Regulations Patient History Date of Service: 08/31/18 Reason for admission: Altered mental status History of Present Illness: Patient is an 87-year-old gentleman who came into the hospital with altered mentation. Patient had been in his normal state of health up until about 2-3 days ago when he started behaving differently. He was not willing to do much of anything. He was lying on the couch quite a bit. He has some nausea vomiting and diarrhea. She brought him into the hospital for further evaluation. In the emergency room he was found to have a right lower lobe pneumonia, mild colitis, questionable renal mass, as well as acute renal insufficiency. Patient be admitted to the hospital for IV hydration and IV antibiotic therapy. Patient also has very dry skin which she has had since he was a child. He has not been using any lotion on his legs. He will need to do this and follow with Dermatology Allergies No Known Allergies Allergy (Unverified 08/31/18 23:29) Home Medications: Aspirin 81 mg PO DAILY 08/31/18 Finasteride 5 mg PO DAILY 08/31/18 Folic Acid 1 mg PO DAILY 08/31/18 Metoprolol Tartrate 50 mg PO BID 08/31/18 Simvastatin 10 mg PO BEDTIME 08/31/18 Sotalol HCl [Sotalol AF] 80 mg PO BID 08/31/18 Tamsulosin [Flomax] 0.4 mg PO BEDTIME 08/31/18 Verapamil HCl [Verapamil ER] 120 mg PO BID 08/31/18 Aspirin [Aspirin EC 81 MG] 81 mg PO BEDTIME 09/01/18 Clopidogrel Bisulfate [Plavix] 75 mg PO DAILY 09/01/18 Ubidecarenone [Co Q-10] 200 mg PO DAILY 09/01/18 Vitamin B Complex [B Complex] 1 each PO BID 09/01/18 - Past Medical/Surgical History Has patient received pneumonia vaccine in the past: Yes Diabetic: No -: HTN -: hyperlipidemia -: Afib -: Dementia -: pacemaker insertion - Family History Father Medical History: Heart disease, Hypertension - Social History Smoking Status: Never smoker Alcohol use: No CD- Drugs: No Caffeine use: Yes Place of Residence: Home Review of Systems 10-point ROS is otherwise unremarkable Physical Examination - Vital Signs Temperature: 97.5 F Blood Pressure: 158/70 Pulse: 66 Respirations: 18 Pulse Ox (%): 96 - Physical Exam General: Alert, In no apparent distress, Demented, Confused HEENT: Atraumatic, PERRLA, Mucous membr. moist/pink, EOMI, Sclerae nonicteric Neck: Supple, 2+ carotid pulse no bruit, No LAD, Without JVD or thyroid abnormality Respiratory: Clear to auscultation bilaterally, Normal air movement Cardiovascular: Regular rate/rhythm, Normal S1 S2, No murmurs Gastrointestinal: Normal bowel sounds, Soft and benign, Non-distended, No tenderness, No rebound, No guarding Musculoskeletal: No tenderness Integumentary: No rashes Neurological: Normal speech, Normal tone, Sensation intact, Cranial nerves 3-12 intact, Normal affect, Abnormal gait, Abnormal strength Lymphatics: No axilla or inguinal lymphadenopathy - Studies Microbiology Data (last 24 hrs): 08/31/18 19:42 Catheterized Urine [place] Count - Final 08/31/18 19:42 Catheterized Urine - Final No growth. Assessment & Plan - Problems (Diagnosis) (1) Colitis Current Visit: Yes Status: Acute (2) PNA (pneumonia) Current Visit: Yes Status: Acute Qualifiers: Pneumonia type: due to unspecified organism Laterality: right Lung location: lower lobe of lung Qualified Code(s): J18.1 - Lobar pneumonia, unspecified organism (3) Sepsis Current Visit: Yes Status: Acute Qualifiers: Sepsis type: sepsis due to unspecified organism Qualified Code(s): A41.9 - Sepsis, unspecified organism (4) Dementia Current Visit: Yes Status: Chronic Qualifiers: Dementia type: unspecified type Dementia behavioral disturbance: without behavioral disturbance Qualified Code(s): F03.90 - Unspecified dementia without behavioral disturbance (5) HTN (hypertension) Current Visit: Yes Status: Chronic Qualifiers: Hypertension type: essential hypertension Qualified Code(s): I10 - Essential (primary) hypertension (6) Hyperlipidemia Current Visit: Yes Status: Chronic Qualifiers: Hyperlipidemia type: mixed hyperlipidemia Qualified Code(s): E78.2 - Mixed hyperlipidemia (7) Atrial fibrillation Current Visit: No Status: Acute - Plan 1. Continue with IV hydration 2. Continue with IV antibiotics 3. Continue with pain control 4. Full liquid diet 5. GI, Dermatology, & urology consultation as an outpatient; outpatient colonoscopy as well as repeat CT scan to evaluate renal lesion in 6-12 weeks 6. Serial H&H, and we will monitor CBC, BMP, LFTs and lipase along with electrolytes. 7. Patient may benefit from placement in the near future 8. GI and DVT prophylaxis Discharge Plan: Home Plan to discharge in: Greater than 2 days - Advance Directives Does patient have a Living Will: No Does patient have a Durable POA for Healthcare: Yes - Code Status/Comfort Care Code Status Assessed: Yes Code Status: Full Code Critical Care: No Time Spent Managing PTS Care (In Minutes): 45
[2018-09-02] MEDS: FINASTERIDE 5 MG TAB PO SCH (08:49)
[2018-09-02] MEDS: TAMSULOSIN 0.4 MG SR CAP PO SCH ×2 (08:49→21:03)
[2018-09-02] MEDS: CLOPIDOGREL 75 MG TABLET PO SCH (08:50)
[2018-09-02] MEDS: ENOXAPARIN 30 MG/0.3 ML SQ SCH (08:50)
--- NOTE | 2018-09-02 09:19 | P.PN ---
Subjective Date of Service: 09/02/18 Chief Complaint: Altered mental status, pneumonia, colitis Subjective: Tolerating diet, Improving, Working w/ PT Mr. Hargrove was seen and evaluated this morning. Doing well. No new complaints. No shortness of breath, chest pain, cough, fevers, or abdominal pain. Urine output tea colored. Will repeat CBC, BMP. CXR tomorrow AM. Otherwise overall better today. Adding PT consult to see how he does with ambulation and strength. WBC still elevated. Will continue antibiotics and increase fluids. Added lamotil and probiotic as well <Maximo Kong - Last Filed: 09/02/18 09:14> Date of Service: 09/02/18 <Dennis Jara - Last Filed: 09/02/18 14:21> Review of Systems General: Unremarkable Eyes: Unremarkable ENT: Unremarkable Respiratory: Unremarkable Cardiovascular: Unremarkable Gastrointestinal: Unremarkable Genitourinary: Unremarkable Musculoskeletal: Unremarkable Integumentary: Unremarkable Neurological: Unremarkable Lymphatics: Unremarkable <Maximo Kong - Last Filed: 09/02/18 09:14> Physical Examination - Vital Signs Temperature: 97.1 F Blood Pressure: 171/71 Pulse: 64 Respirations: 15 Pulse Ox (%): 96 - Physical Exam General: Alert, In no apparent distress, Oriented x3, Cooperative HEENT: Normocephalic, PERRLA, Mucous membr. moist/pink Neck: 2+ carotid pulse no bruit, JVD not distended, No Thyromegaly Respiratory: Clear to auscultation bilaterally, Normal air movement Cardiovascular: No edema, Normal pulses, Regular rate/rhythm, Normal S1 S2, No gallops, No rubs, No murmurs Capillary refill: <2 Seconds Gastrointestinal: Normal bowel sounds, Soft and benign, Non-distended, No tenderness, No masses, No rebound, No guarding Musculoskeletal: No clubbing, No swelling, No contractures, No erythema, No tenderness, No warmth Integumentary: No rashes, No breakdown, No significant lesion, No tenderness/ swelling, No erythema, No warmth, No cyanosis Neurological: Normal speech, Normal strength at 5/5 x4 extr, Normal tone, Sensation intact, Cranial nerves 3-12 intact, Normal reflexes 2+, Normal affect Urinary: Staples catheter (Tea colored urine. Mild decrease in urine output ) - Studies Microbiology Data (last 24 hrs): 08/31/18 19:42 Catheterized Urine [place] Count - Final 08/31/18 19:42 Catheterized Urine - Final No growth. Medications List Reviewed: Yes <Maximo Kong - Last Filed: 09/02/18 09:14> - Studies Microbiology Data (last 24 hrs): 08/31/18 19:42 Catheterized Urine [place] Count - Final 08/31/18 19:42 Catheterized Urine - Final No growth. <Dennis Jara - Last Filed: 09/02/18 14:21> Assessment & Plan - Problems (Diagnosis) (1) Colitis Current Visit: Yes Status: Acute (2) PNA (pneumonia) Current Visit: Yes Status: Acute Qualifiers: Pneumonia type: due to unspecified organism Laterality: right Lung location: lower lobe of lung Qualified Code(s): J18.1 - Lobar pneumonia, unspecified organism (3) Dementia Current Visit: Yes Status: Chronic Qualifiers: Dementia type: unspecified type Dementia behavioral disturbance: without behavioral disturbance Qualified Code(s): F03.90 - Unspecified dementia without behavioral disturbance (4) HTN (hypertension) Current Visit: Yes Status: Chronic Qualifiers: Hypertension type: essential hypertension Qualified Code(s): I10 - Essential (primary) hypertension (5) Hyperlipidemia Current Visit: Yes Status: Chronic Qualifiers: Hyperlipidemia type: mixed hyperlipidemia Qualified Code(s): E78.2 - Mixed hyperlipidemia Discharge Plan: Home Plan to discharge in: 48 Hours <Maximo Kong - Last Filed: 09/02/18 09:14> Physician Review Additional Text: Patient seen and evaluate with DARREN Gomez. Patient continues to improve. Reports that his diarrhea is resolving. He is getting more strength. Continue with IV antibiotics. Will add Lomotil and Lactobacillus. Will have PT to ambulate. Renal function improved. Anticipate discharge as early as tomorrow if Lab improved and clinically better. He may require HH/PT at discharge. Social work to assess. Dr. Wolff to take over care tomorrow. Time Spent Managing Pts Care (In Minutes): 55 <Dennis Jara - Last Filed: 09/02/18 14:21>
[2018-09-02 09:23] LABS: Absolute Lymphocytes (CBC) 1.3 K/uL (0.7-4.9); Absolute Monocytes 0.8 K/uL (0.1-1.3); Absolute Neutrophil 13.1 K/uL (1.8-8.0); Basophils % 0.1 % (0-1.3); Eosinophils % 0.1 % (0-4.4); Hematocrit 30.6 % (39.6-49.0); Lymphocytes % 8.5 % (15.3-44.8); MPV 9.7 fL (7.6-11.3); Monocytes % 5.2 % (3.3-12.3); RBC Red Blood Cell Count 3.32 M/uL (4.33-5.43)
[2018-09-02 09:48] LABS: Magnesium 2.3 mg/dL (1.8-2.4); Potassium 3.7 mmol/L (3.5-5.1)
[2018-09-02] MEDS ORDERED: POTASSIUM CL SA 10 MEQ TAB PO ONE (10:46)
[2018-09-02] MEDS: NACHLORIDE 0.45% 1,000 ML IV SCH ×2 (11:10→20:00)
[2018-09-02] MEDS: DIPHENOX/ATROP SULF 1 TAB PO PRN ×2 (13:09→21:04)
[2018-09-02 14:04] LABS: Urine Appearance CLOUDY; Urine Blood 3+ (NEG); Urine Color RED; Urine Glucose NEGATIVE (NEG); Urine Protein 2+ (NEG); Urine Specific Gravity 1.025 (1.005-1.030)
[2018-09-02 14:10] LABS: Urine Bilirubin NEGATIVE (NEG)
[2018-09-02 14:25] LABS: Urine Bacteria <20 /HPF (NONE SEEN); Urine Mucus 1+ /HPF (NONE SEEN); Urine RBC TNTC /HPF (NONE SEEN)
[2018-09-02 14:28] LABS: Urine Culture Reflex Order NOT NEEDED
[2018-09-02] MEDS: CIPROFLOXACIN 400mg IV 400 MG/200 ML BAG IV SCH (16:26)
[2018-09-02] MEDS: ATORVASTATIN 10 MG TAB PO SCH (21:03)
[2018-09-02] MEDS: DONEPEZIL HCL 5 MG TAB PO SCH (21:04)
[2018-09-02] MEDS: LACTOBACILLUS/ACIDOPHILUS TAB PO SCH (21:04)
[2018-09-02] MEDS: VITAMIN B COMPLEX 1 CAP PO SCH (21:04)
[2018-09-03] MEDS: NACHLORIDE 0.45% 1,000 ML IV SCH ×4 (00:26→16:00)
[2018-09-03] MEDS: METRONIDAZOLE 500mg IVPB 500 MG/100 ML BAG IV SCH ×3 (00:28→17:15)
[2018-09-03] MEDS: SOTALOL HCL 80 MG TAB PO SCH ×2 (05:56→17:15)
[2018-09-03 06:45] LABS: Absolute Monocytes 0.8 K/uL (0.1-1.3); Absolute Neutrophil 11.4 K/uL (1.8-8.0); Basophils % 0.2 % (0-1.3); Eosinophils % 0.6 % (0-4.4); Hematocrit 30.1 % (39.6-49.0); Lymphocytes % 13.9 % (15.3-44.8); MPV 9.3 fL (7.6-11.3); Monocytes % 5.9 % (3.3-12.3); RBC Red Blood Cell Count 3.26 M/uL (4.33-5.43)
[2018-09-03 07:02] LABS: Magnesium 2.1 mg/dL (1.8-2.4); Potassium 3.9 mmol/L (3.5-5.1)
[2018-09-03 08:05] LABS: Blood Morphology Comment NOT SEEN (NOT SEEN); Platelet Estimate ADEQ; Platelets, Giant MODERATE
[2018-09-03] MEDS: VITAMIN B COMPLEX 1 CAP PO SCH ×2 (08:36→20:37)
[2018-09-03] MEDS: COENZYME Q10- 200 MG CAP PO SCH (08:36)
[2018-09-03] MEDS: FINASTERIDE 5 MG TAB PO SCH (08:36)
[2018-09-03] MEDS: TAMSULOSIN 0.4 MG SR CAP PO SCH ×2 (08:36→20:32)
[2018-09-03] MEDS: LACTOBACILLUS/ACIDOPHILUS TAB PO SCH ×2 (08:36→20:32)
[2018-09-03] MEDS: FOLIC ACID 1 MG TABLET PO SCH (08:36)
[2018-09-03] MEDS: ENOXAPARIN 30 MG/0.3 ML SQ SCH (08:37)
[2018-09-03] MEDS: CLOPIDOGREL 75 MG TABLET PO SCH (08:38)
[2018-09-03] MEDS ORDERED: POTASSIUM CL SA 10 MEQ TAB PO ONE (09:00)
--- NOTE | 2018-09-03 11:16 | RAD REPORT ---
EXAM DESCRIPTION: RAD - Chest Pa And Lat (2 Views) - 09/03/2018 6:01 am CLINICAL HISTORY: follow up pneumonia Chest pain. COMPARISON: Chest Single View dated 08/31/2018; Chest Single View dated 01/18/2018; Chest Single View dated 12/06/2015; CHEST SINGLE VIEW dated 04/13/2013; Chest Abd Pelvis Wo Con dated 08/31/2018 FINDINGS: Mild airspace opacity in the right lung base with a small right pleural effusion noted lik mey representing pneumonia. The lungs are otherwise clear. Trace left pleural effusion is also seen. The heart is normal in size. Dual lead pacer device is present. IMPRESSION: Small posterior right lung base pneumonia persists.
[2018-09-03 12:34] LABS: Hematocrit 31.6 % (39.6-49.0)
[2018-09-03] MEDS: CIPROFLOXACIN 400mg IV 400 MG/200 ML BAG IV SCH (16:09)
--- NOTE | 2018-09-03 17:03 | PN ---
Date of Progress Note: 09/03/2018 Subjective: Patient seen and examined. Chart reviewed and case discussed with RN. The patient doing well overall. Did have episode of bright red blood per rectum this morning. Code status do not resuscitate. Code status: DNR Medications: List reviewed. Physical Examination: Vital Signs: Temperature 97.1, heart rate 67, blood pressure 170/78, respirations 15, O2 is 100% on room air. General: Awake, alert, oriented x3, not in any acute distress. Elderly male, appears frail. CV: S1, S2. Regular rate and rhythm. Peripheral pulses present. Respiratory: Moving air well bilaterally. No wheezing or stridor. Gastrointestinal: Abdomen is soft, nontender, nondistended. Positive bowel sounds. Extremities: No clubbing, cyanosis, or edema. Neuro: Cranial nerves 2-12 intact grossly. No focal neurological deficit. Speech is normal. Laboratory Data: Sodium 141, potassium 3.9, chloride 111, CO2 25, BUN 24, creatinine 1.08, glucose 109, calcium 7.7, magnesium 2.1. Procalcitonin 4.37. H and H 10 and 30. WBC is 14.4. Repeat H and H are 10.7 and 31.6, neutrophils 79%. C. diff assay is negative. Stool culture, no Salmonella, Shigella or Campylobacter. Blood cultures shows coagulase-negative Staph which is likely a contaminant. Chest x-ray shows small posterior right lung base pneumonia persists, compared to 08/31/2018. Assessment And Plan: 1. Colitis. Continue antibiotics, improving, likely viral versus bacterial. The patient able to tolerate his diet. 2. Acute gastrointestinal bleed. The patient did have some bright red blood per rectum this morning. H and H are stable. No GI is available at this time. We will continue to monitor. 3. Pneumonia, right lower lobe. Chest x-ray shows persistent infiltrate. Clinically, however, patient is significantly better. Blood cultures are negative to date, does have contaminant of coagulase-negative Staph in 1 out of 4 bottles. 4. Alzheimer's dementia, early onset without behavioral disturbance. We will continue to monitor. 5. Essential hypertension, stable. 6. Hyperlipidemia, we will continue statin. 7. Deep vein thrombosis prophylaxis. We will hold Lovenox due to bleed. We will place SCDs. Plan: Likely discharge home in a.m. if no further bleeding and H and H remains stable. /CHALINO Voice ID: [id number] Report ID: [id number] MTDZora
[2018-09-03] MEDS: DIPHENOX/ATROP SULF 1 TAB PO PRN (20:32)
[2018-09-03] MEDS: DONEPEZIL HCL 5 MG TAB PO SCH (20:32)
[2018-09-03] MEDS: ATORVASTATIN 10 MG TAB PO SCH (20:32)
[2018-09-04] MEDS: METRONIDAZOLE 500mg IVPB 500 MG/100 ML BAG IV SCH ×3 (00:30→16:03)
[2018-09-04] MEDS: NACHLORIDE 0.45% 1,000 ML IV SCH ×3 (00:30→22:12)
[2018-09-04] MEDS: SOTALOL HCL 80 MG TAB PO SCH ×2 (05:40→17:56)
[2018-09-04 07:15] LABS: Absolute Lymphocytes (CBC) 1.9 K/uL (0.7-4.9); Absolute Neutrophil 9.8 K/uL (1.8-8.0); Basophils % 0.2 % (0-1.3); Eosinophils % 1.8 % (0-4.4); Hematocrit 29.1 % (39.6-49.0); Lymphocytes % 14.4 % (15.3-44.8); MPV 9.1 fL (7.6-11.3); Monocytes % 7.5 % (3.3-12.3); RBC Red Blood Cell Count 3.15 M/uL (4.33-5.43)
[2018-09-04 07:31] LABS: Magnesium 1.8 mg/dL (1.8-2.4); Potassium 3.6 mmol/L (3.5-5.1)
[2018-09-04] MEDS ORDERED: MAGNESIUM SULFATE 1 gm IVPB 1 GM/100 ML BAG IV ONE (09:00)
[2018-09-04] MEDS ORDERED: POTASSIUM CL SA 10 MEQ TAB PO ONE (09:00)
[2018-09-04] MEDS: COENZYME Q10- 200 MG CAP PO SCH (09:27)
[2018-09-04] MEDS: TAMSULOSIN 0.4 MG SR CAP PO SCH ×2 (09:27→22:11)
[2018-09-04] MEDS: VITAMIN B COMPLEX 1 CAP PO SCH ×2 (09:27→22:12)
[2018-09-04] MEDS: FINASTERIDE 5 MG TAB PO SCH (09:27)
[2018-09-04] MEDS: FOLIC ACID 1 MG TABLET PO SCH (09:28)
[2018-09-04] MEDS: LACTOBACILLUS/ACIDOPHILUS TAB PO SCH ×2 (09:28→22:12)
[2018-09-04] MEDS: CIPROFLOXACIN 400mg IV 400 MG/200 ML BAG IV SCH (16:03)
--- NOTE | 2018-09-04 16:11 | PN ---
Date of Progress Note: 09/04/2018 Subjective: The patient seen and examined. Chart reviewed and case discussed with RN. The patient' s daughter requesting [facility] facility placement. The patient has not had any further bowel movements today with blood. Medications list reviewed. Physical Examination: Vital Signs: Temperature 97.2, heart rate 66, blood pressure 146/68, respirations 16, O2 96% on room air. General: Awake, alert, oriented x3, no acute distress. Elderly male, frail. CV: S1, S2. No murmurs. Peripheral pulses present. Respiratory: Moving air well bilaterally. No wheezing. Gastrointestinal: Abdomen is soft, nontender, nondistended. Positive bowel sounds. Extremities: No clubbing, cyanosis, or edema. Neurologic: Nonfocal. Laboratory Data: Sodium 142, potassium 3.6, chloride 111, CO2 25, BUN 18, creatinine 0.88, glucose 1 13, calcium 7.4, magnesium is 1.8. WBC is 12.9, H and H 9.7/29.1, platelets 205, neutrophils 76%. Assessment: An 87-year-old male with: 1.Acute colitis. Continue IV antibiotics, bacterial versus viral. The patient has been tolerating his diet. Pain is improved. 2.Acute gastrointestinal bleed. The patient had bright red blood per rectum yesterday. We will sugey ck Hemoccult as well. Unfortunately, no GI is available for consultation. Lovenox has been held, ma y be due to colitis versus medication. We will continue to monitor. 3.Right lower lobe pneumonia. Chest x-ray reviewed from yesterday shows persistent infiltrate. Cli nically, the patient is significantly better. Continue IV antibiotics. Cultures are negative to geoffrey e. 4.Alzheimer's dementia, early onset, without behavioral disturbance, stable. 5.Essential hypertension, stable. 6.Hyperlipidemia. Continue statin. 7.Atrial fibrillation, paroxysmal. The patient is on sotalol. 8.Deep vein thrombosis prophylaxis. No chemical anticoagulation due to gastrointestinal bleed. Con tinue with SCDs. Plan: The patient is medically stable, however, family requesting [facility] facility placement . Case Management has been consulted. Discharge once accepted to [facility] facility. /MODL Voice ID: [id number] Report ID: [id number]
[2018-09-04] MEDS: DIPHENOX/ATROP SULF 1 TAB PO PRN (22:11)
[2018-09-04] MEDS: ATORVASTATIN 10 MG TAB PO SCH (22:11)
[2018-09-04] MEDS: DONEPEZIL HCL 5 MG TAB PO SCH (22:12)
[2018-09-05] MEDS: METRONIDAZOLE 500mg IVPB 500 MG/100 ML BAG IV SCH ×3 (00:59→16:57)
[2018-09-05] MEDS: SOTALOL HCL 80 MG TAB PO SCH ×2 (05:00→18:03)
[2018-09-05 07:05] LABS: Absolute Lymphocytes (CBC) 1.5 K/uL (0.7-4.9); Absolute Monocytes 1.1 K/uL (0.1-1.3); Absolute Neutrophil 8.8 K/uL (1.8-8.0); Basophils % 0.3 % (0-1.3); Eosinophils % 2.3 % (0-4.4); Hematocrit 28.9 % (39.6-49.0); Lymphocytes % 12.9 % (15.3-44.8); MPV 8.6 fL (7.6-11.3); Monocytes % 9.1 % (3.3-12.3); RBC Red Blood Cell Count 3.16 M/uL (4.33-5.43)
[2018-09-05 07:14] LABS: Magnesium 1.8 mg/dL (1.8-2.4); Potassium 3.4 mmol/L (3.5-5.1)
[2018-09-05] MEDS: NACHLORIDE 0.45% 1,000 ML IV SCH (08:14)
[2018-09-05] MEDS: COENZYME Q10- 200 MG CAP PO SCH (08:56)
[2018-09-05] MEDS: TAMSULOSIN 0.4 MG SR CAP PO SCH ×2 (08:56→21:09)
[2018-09-05] MEDS: FINASTERIDE 5 MG TAB PO SCH (08:56)
[2018-09-05] MEDS: FOLIC ACID 1 MG TABLET PO SCH (08:57)
[2018-09-05] MEDS: LACTOBACILLUS/ACIDOPHILUS TAB PO SCH ×2 (08:57→21:08)
[2018-09-05] MEDS: VITAMIN B COMPLEX 1 CAP PO SCH ×2 (08:57→21:09)
[2018-09-05] MEDS ORDERED: POTASSIUM 25 MEQ EFFERV TAB PO ONE ×2 (09:00→16:54)
[2018-09-05] MEDS ORDERED: MAGNESIUM SULFATE 1 gm IVPB 1 GM/100 ML BAG IV ONE (09:00)
[2018-09-05] MEDS: CIPROFLOXACIN 400mg IV 400 MG/200 ML BAG IV SCH (16:56)
--- NOTE | 2018-09-05 17:53 | P.PN ---
Subjective Date of Service: 09/05/18 Chief Complaint: Altered mental status, pneumonia, colitis Subjective: Improving Physical Examination - Vital Signs Temperature: 97.7 F Blood Pressure: 171/77 Pulse: 66 Respirations: 16 Pulse Ox (%): 96 - Physical Exam General: Alert, In no apparent distress, Demented HEENT: Atraumatic Neck: Supple Respiratory: Clear to auscultation bilaterally, Normal air movement Cardiovascular: Normal pulses, Regular rate/rhythm Gastrointestinal: Normal bowel sounds, No tenderness, No masses, No rebound, No guarding Neurological: Normal speech, Normal strength at 5/5 x4 extr, Normal tone, Dementia - Studies Microbiology Data (last 24 hrs): 08/31/18 18:20 Blood - Blood Aerobic Blood Culture - Final 08/31/18 18:20 Blood - Blood Gram Stain - Final 08/31/18 18:20 Blood - Blood Anaerobic Blood Culture - Final No growth in 5 days. Medications List Reviewed: Yes Assessment & Plan Discharge Plan: Other (detention facility) Plan to discharge in: 24 Hours Physician Review Additional Text: Impression: Acute colitis complicated with right lower lobe pneumonia Alzheimer's dementia Hypertension Atrial fibrillation Plan: Continue antibiotic treatment. Will transition to oral medication. Patient much improved. Will recheck chest x-ray. Patient off nasal cannula. Continue other medications. Patient on DVT prophylaxis. Renal function improved. H&H stable. Patient to be transferred to skilled facility once approved. Continue with physical therapy at this time. Case discussed with social service assistant and family. Time Spent Managing Pts Care (In Minutes): 55
[2018-09-05] MEDS: ATORVASTATIN 10 MG TAB PO SCH (21:09)
[2018-09-05] MEDS: metroNIDAZOLE 500 MG TABLET PO SCH (21:09)
[2018-09-05] MEDS: DONEPEZIL HCL 5 MG TAB PO SCH (21:09)
[2018-09-05] MEDS: CIPROFLOXACIN HCL 500 MG TAB PO SCH (21:09)
[2018-09-06 05:19] LABS: Absolute Lymphocytes (CBC) 2.1 K/uL (0.7-4.9); Absolute Monocytes 1.2 K/uL (0.1-1.3); Absolute Neutrophil 6.9 K/uL (1.8-8.0); Basophils % 0.4 % (0-1.3); Eosinophils % 2.7 % (0-4.4); Hematocrit 27.9 % (39.6-49.0); Lymphocytes % 19.8 % (15.3-44.8); MPV 8.5 fL (7.6-11.3); Monocytes % 11.6 % (3.3-12.3); RBC Red Blood Cell Count 3.07 M/uL (4.33-5.43)
[2018-09-06] MEDS: SOTALOL HCL 80 MG TAB PO SCH ×2 (05:43→18:00)
[2018-09-06 05:59] LABS: BUN Blood Urea Nitrogen 11 mg/dL (7-18); Bicarbonate 25 mmol/L (21-32); Glucose Level 102 mg/dL (74-106); Potassium 3.3 mmol/L (3.5-5.1); Sodium Level 143 mmol/L (136-145)
[2018-09-06] MEDS ORDERED: KCL 20 MEQ/100 mL IVPB 20 MEQ/100 ML BAG IV SCH (07:30)
[2018-09-06] MEDS: TAMSULOSIN 0.4 MG SR CAP PO SCH ×2 (08:24→21:06)
[2018-09-06] MEDS: FOLIC ACID 1 MG TABLET PO SCH (08:24)
[2018-09-06] MEDS: VITAMIN B COMPLEX 1 CAP PO SCH ×2 (08:24→21:05)
[2018-09-06] MEDS: CIPROFLOXACIN HCL 500 MG TAB PO SCH ×2 (08:24→21:06)
[2018-09-06] MEDS: metroNIDAZOLE 500 MG TABLET PO SCH ×3 (08:24→21:06)
[2018-09-06] MEDS: LACTOBACILLUS/ACIDOPHILUS TAB PO SCH ×2 (08:24→21:05)
[2018-09-06] MEDS: COENZYME Q10- 200 MG CAP PO SCH (08:26)
[2018-09-06] MEDS: FINASTERIDE 5 MG TAB PO SCH (08:27)
--- NOTE | 2018-09-06 08:27 | RAD REPORT ---
EXAM DESCRIPTION: RAD - Chest Pa And Lat (2 Views) - 09/06/2018 8:08 am CLINICAL HISTORY: Follow up pneumonia Chest pain. COMPARISON: Chest Pa And Lat (2 Views) dated 09/03/2018; Chest Single View dated 08/31/2018; Chest Sin gle View dated 01/18/2018; Chest Single View dated 12/06/2015 FINDINGS: Bibasilar lung opacities with small bilateral pleural effusions appears slightly worse com pared to the prior study. The heart is upper limit normal in size with dual lead pacer device present . No displaced fractures. IMPRESSION: Mild worsening in bibasilar lung aeration since comparative study.
[2018-09-06] MEDS ORDERED: NA CHLORIDE 0.9% 250 ML ONE (08:41)
--- NOTE | 2018-09-06 09:15 | P.DS ---
Admission Date: 08/31/18 Discharge Date: 09/06/18 Primary Care Provider: unknown Disposition: CT HOME/HOME HEALTH CARE Discharge Condition: FAIR Reason for Admission: Altered mental status, pneumonia, colitis Consultations: none Procedures: CT scan: FINDINGS: Airspace opacification is present posterior gutter on the right. There is trace stranding in the posterior gutter on the left. Lung devi are otherwise clear. No pneumothorax or pleural effusion. No chest wall mass or abnormal axillary lymphadenopathy seen. Mediastinal and hilar regions show no mass or lymphadenopathy. No significant cardiac finding. The liver, spleen and pancreas show no significant findings. Gallbladder and biliary tree are normal. Gallstones can be occult on CT imaging. No hydronephrosis present. No obstructing or nonobstructing calculi. Along the anteromedial margin mid right kidney there is a 2.0 x 1.5 centimeter low- density mass. This is in proximity to the renal vasculature. Attenuation value is low at 9 Hounsfield units. This is probably an exophytic cyst. Assessment is limited in the absence of contrast. No adrenal abnormalities. No urinary bladder abnormalities. Prostate gland is mildly prominent. No gastric dilatation or wall thickening. No dilated small bowel loops. There several fluid-filled small bowel loops that are nonspecific. Appendicitis is not suspected. Hernandez of the rectum and distal sigmoid colon are prominent. There is soft tissue attenuation in the presacral soft tissues. Small amount of ascites is present. Fluid adjacent to the spleen measures 5 Hounsfield units. Intraperitoneal blood is not suspected. There is a minimal amount of ascites adjacent to the liver capsule. No free air or pneumatosis. No mass or bulky lymphadenopathy. Disc and bony degenerative changes are present. No pathologic bone process seen. IMPRESSION: Posterior right lung base pneumonia. Mild wall thickening of the rectum and distal sigmoid colon. This may be an nonspecific proctitis/colitis. No colon mass confirmed. Patient has a small amount of ascites present and congestion or edema in the presacral soft tissues near the rectum. Patient has a few prominent small bowel loops that could indicated nonspecific enteritis. No bowel obstruction. CXR: FINDINGS: Mild airspace opacity in the right lung base with a small right pleural effusion noted likely representing pneumonia. The lungs are otherwise clear. Trace left pleural effusion is also seen. The heart is normal in size. Dual lead pacer device is present. IMPRESSION: Small posterior right lung base pneumonia persists. Medical Problem list: Sepsis secondary to acute distal sigmoid colitis complicated with right lower lobe pneumonia Alzheimer's dementia Hypertension Chronic atrial fibrillation not on chronic anti coagulation therapy History of dual pacemaker BPH Hyperlipidemia Brief History of Present Illness: 87-year-old male presented to the emergency room with nausea, vomiting and diarrhea. Patient found to have right lower lobe pneumonia with distal sigmoid colitis. Patient was admitted for treatment. Patient with multiple medical problems including dementia, chronic atrial fibrillation, hypertension, hyperlipidemia and BPH. Hospital Course: Patient presented with distal sigmoid colitis and right lower lobe pneumonia. Patient treated with IV antibiotic therapy. Patient improved. At discharge he is without any significant abdominal pain, nausea and vomiting. Repeat pro calcitonin significantly improved. He reports no significant shortness of breath. Patient was evaluated by physical therapy. It was recommended that the patient be sent to a skilled facility prior to going home. Patient accepted. Prior discharge family decided to take the patient home as the patient had improved instead a going to a skilled facility. Arrangements for home health and physical therapy will be arranged prior to discharge. At discharge he will continue with Levaquin 500 mg daily and Flagyl 500 mg 3 times a day for 5 more days. Patient will also continue with lactobacillus 1 pill twice daily. Recommend to recheck chest x-ray in 2-4 weeks to monitor resolution. Recommend to follow up with GI in 4-6 weeks as the patient may require a colonoscopy in the future to further address. This may not be required if improved especially due to his age and chronic medical problems. Patient with chronic atrial fibrillation. Patient with dual pacemaker. Prior to discharge medications were reviewed as patient's medication list included sotalol, metoprolol and diltiazem. Daughter reports that sotalol had been discontinued by Cardiology-Dr. Larios recently. This was to be replaced with metoprolol likely just for rate control. At discharge patient will continue with metoprolol 50 mg 1 pill twice daily. Sotalol to be discontinued. Patient not on chronic anti coagulation therapy. Patient with hypertension. Patient will continue with his medication including metoprolol 50 mg 1 pill twice daily. He is to hold his blood pressure medication if blood pressure systolic less than 120. Further adjustment can be done by his PCP or cardiology. Patient with dementia. Patient will continue with multi vitamins. Patient may follow up with neurology as directed. Patient with advanced directives indicating do not resuscitate. Patient with BPH. Patient will continue with finasteride 5 mg daily and Flomax 0.4 mg daily. Patient with hyperlipidemia. Patient continue with Zocor 10 mg daily. Vital Signs/Physical Exam: Temp Pulse Resp BP Pulse Ox 97.7 F 70 18 153/72 H 93 09/06/18 04:00 09/06/18 04:00 09/06/18 04:00 09/06/18 04:00 09/06/18 04:00 General: Alert, In no apparent distress, Oriented x3, Cooperative HEENT: Atraumatic Neck: Supple Respiratory: Clear to auscultation bilaterally, Normal air movement Cardiovascular: Normal pulses, Regular rate/rhythm Gastrointestinal: Normal bowel sounds, Soft and benign, Non-distended, No tenderness, No masses, No rebound, No guarding Musculoskeletal: No erythema, No tenderness, No warmth Integumentary: No tenderness/swelling, No erythema, No warmth, No cyanosis Neurological: Normal speech, Normal strength at 5/5 x4 extr, Normal tone, Dementia Laboratory Data at Discharge: WBC 10.6 K/uL (4.3-10.9) 09/06/18 04:25 Hgb 9.6 g/dL (13.6-17.9) L 09/06/18 04:25 Hct 27.9 % (39.6-49.0) L 09/06/18 04:25 Plt Count 231 K/uL (152-406) 09/06/18 04:25 PT 13.3 SECONDS (9.5-12.5) H 08/31/18 17:08 INR 1.13 08/31/18 17:08 Sodium 143 mmol/L (136-145) 09/06/18 04:25 Potassium 3.3 mmol/L (3.5-5.1) L 09/06/18 07:44 BUN 11 mg/dL (7-18) 09/06/18 04:25 Creatinine 0.80 mg/dL (0.55-1.3) 09/06/18 04:25 Glucose 102 mg/dL (74-106) 09/06/18 04:25 Phosphorus 3.7 mg/dL (2.5-4.9) 09/01/18 05:46 Magnesium 2.0 mg/dL (1.8-2.4) 09/06/18 04:25 Total Bilirubin 0.6 mg/dL (0.2-1.0) 09/01/18 05:46 AST 38 U/L (15-37) H 09/01/18 05:46 ALT 44 U/L (12-78) 09/01/18 05:46 Alkaline Phosphatase 94 U/L (45-117) 09/01/18 05:46 Triglycerides 138 mg/dL (<150) 09/01/18 05:46 Cholesterol 114 mg/dL (<200) 09/01/18 05:46 HDL Cholesterol 32 mg/dL (40-60) L 09/01/18 05:46 Cholesterol/HDL Ratio 3.56 09/01/18 05:46 Home Medications: Finasteride 5 mg PO DAILY 08/31/18 Folic Acid 1 mg PO DAILY 08/31/18 Simvastatin 10 mg PO BEDTIME 08/31/18 Tamsulosin [Flomax*] 0.4 mg PO BEDTIME 08/31/18 Aspirin [Aspirin EC 81 MG] 81 mg PO BEDTIME 09/01/18 Ubidecarenone [Co Q-10] 200 mg PO DAILY 09/01/18 Vitamin B Complex [B Complex] 1 each PO BID 09/01/18 Lactobacillus Acidophilus [Acidophilus Lactobacilli] 1 each PO BID #60 capsule 09/06/18 Levofloxacin [Levaquin] 500 mg PO DAILY #5 tablet 09/06/18 metroNIDAZOLE [Flagyl*] 500 mg PO TID #15 tablet 09/06/18 New Medications: Lactobacillus Acidophilus [Acidophilus Lactobacilli] 1 each PO BID #60 capsule Levofloxacin [Levaquin] 500 mg PO DAILY #5 tablet metroNIDAZOLE [Flagyl*] 500 mg PO TID #15 tablet Patient Discharge Instructions: 1. Patient will follow up with PCP. 2. Patient presented with distal sigmoid colitis and right lower lobe pneumonia. Patient treated with IV antibiotic therapy. Patient improved. At discharge he is without any significant abdominal pain, nausea and vomiting. Repeat pro calcitonin significantly improved. He reports no significant shortness of breath. Patient was evaluated by physical therapy. It was recommended that the patient be sent to a skilled facility prior to going home. Patient accepted. Prior discharge family decided to take the patient home as the patient had improved instead a going to a skilled facility. Arrangements for home health and physical therapy will be arranged prior to discharge. At discharge he will continue with Levaquin 500 mg daily and Flagyl 500 mg 3 times a day for 5 more days. Patient will also continue with lactobacillus 1 pill twice daily. Recommend to recheck chest x-ray in 2-4 weeks to monitor resolution. Recommend to follow up with GI in 4-6 weeks as the patient may require a colonoscopy in the future to further address. This may not be required if improved especially due to his age and chronic medical problems. 3. Patient with chronic atrial fibrillation. Patient with dual pacemaker. Prior to discharge medications were reviewed as patient's medication list included sotalol, metoprolol and diltiazem. Daughter reports that sotalol had been discontinued by Cardiology-Dr. Larios recently. This was to be replaced with metoprolol likely just for rate control. At discharge patient will continue with metoprolol 50 mg 1 pill twice daily. Sotalol to be discontinued. Patient not on chronic anti coagulation therapy. 4. Patient with hypertension. Patient will continue with his medication including metoprolol 50 mg 1 pill twice daily. He is to hold his blood pressure medication if blood pressure systolic less than 120. Further adjustment can be done by his PCP or cardiology. 5. Patient with dementia. Patient will continue with multi vitamins. Patient may follow up with neurology as directed. Patient with advanced directives indicating do not resuscitate. 6. Patient with BPH. Patient will continue with finasteride 5 mg daily and Flomax 0.4 mg daily. 7. Patient with hyperlipidemia. Patient continue with Zocor 10 mg daily. Diet: GI soft diet Activity: Fall precautions Time spent managing pt's care (in minutes): 55
[2018-09-06] MEDS ORDERED: KCL 20 MEQ/100 mL IVPB 20 MEQ/100 ML BAG IV ONE (11:45)
[2018-09-06] MEDS ORDERED: POTASSIUM CL SA 10 MEQ TAB PO ONE (21:00)
[2018-09-06] MEDS: ATORVASTATIN 10 MG TAB PO SCH (21:05)
[2018-09-06] MEDS: DIPHENOX/ATROP SULF 1 TAB PO PRN (21:05)
[2018-09-06] MEDS: DONEPEZIL HCL 5 MG TAB PO SCH (21:06)
[2018-09-07] MEDS ORDERED: HYDRALAZINE HCL 20 MG/ML VIAL IV PRN (01:15)
[2018-09-07] MEDS: SOTALOL HCL 80 MG TAB PO SCH (05:38)
[2018-09-07 06:10] LABS: BUN Blood Urea Nitrogen 12 mg/dL (7-18); Bicarbonate 25 mmol/L (21-32); Glucose Level 100 mg/dL (74-106); Magnesium 1.9 mg/dL (1.8-2.4); Phosphorus 2.4 mg/dL (2.5-4.9); Potassium 3.4 mmol/L (3.5-5.1); Sodium Level 143 mmol/L (136-145)
[2018-09-07 06:14] LABS: Absolute Lymphocytes (CBC) 2.2 K/uL (0.7-4.9); Absolute Monocytes 1.1 K/uL (0.1-1.3); Basophils % 0.4 % (0-1.3); Hematocrit 30.1 % (39.6-49.0); Lymphocytes % 20.5 % (15.3-44.8); MPV 8.4 fL (7.6-11.3); Monocytes % 10.4 % (3.3-12.3); RBC Red Blood Cell Count 3.31 M/uL (4.33-5.43)
[2018-09-07] MEDS ORDERED: POTASSIUM CL SA 10 MEQ TAB PO ONE (09:00)
[2018-09-07] MEDS: metroNIDAZOLE 500 MG TABLET PO SCH ×2 (09:06→13:10)
[2018-09-07] MEDS: FOLIC ACID 1 MG TABLET PO SCH (09:07)
[2018-09-07] MEDS: FINASTERIDE 5 MG TAB PO SCH (09:07)
[2018-09-07] MEDS: LACTOBACILLUS/ACIDOPHILUS TAB PO SCH (09:07)
[2018-09-07] MEDS: TAMSULOSIN 0.4 MG SR CAP PO SCH (09:07)
[2018-09-07] MEDS: VITAMIN B COMPLEX 1 CAP PO SCH (09:07)
[2018-09-07] MEDS: CIPROFLOXACIN HCL 500 MG TAB PO SCH (09:07)
[2018-09-07] MEDS: POTASS/SODIUM PHOSPHATE 1 PKT POWD.PACK PO SCH ×3 (09:08→11:16)
[2018-09-07] MEDS: COENZYME Q10- 200 MG CAP PO SCH (09:08)
[2018-09-07 12:36] VITALS: O2SAT 97
[2018-09-07 12:41] VITALS: BP 151/69; TEMP 97.2
[2018-09-07] MEDS: DIPHENOX/ATROP SULF 1 TAB PO PRN (12:58)
== END 2018-09-07 14:00 | disposition home health service (06) | DRG 871 ==
LOC: ER 15:50 → ERHOLD 21:04 → 2ND 22:37
PROVIDERS: ADMIT Hospitalist; ATTEND Family Medicine
DX: A41.9 Sepsis, unspecified organism (principal); J18.1 Lobar pneumonia, unspecified organism; K92.1 Melena; F02.80 Dementia in other diseases classified elsewhere, unspecified severity, without behavioral disturbance, psychotic disturbance, mood disturbance, and anxiety; I10 Essential (primary) hypertension; I48.2 Chronic atrial fibrillation; K52.9 Noninfective gastroenteritis and colitis, unspecified; Z95.0 Presence of cardiac pacemaker; N40.0 Benign prostatic hyperplasia without lower urinary tract symptoms; E78.2 Mixed hyperlipidemia; Z66 Do not resuscitate; G30.0 Alzheimer's disease with early onset
CPT/HCPCS: 36415; 51702; 70450; 71045; 71046; 71250; 74176; 80048; 80053; 80061; 80076; 81001; 81003; 81015; 83605; 83735; 83880; 84100; 84132; 84145; 84484; 85014; 85018; 85025; 85610; 87040; 87045; 87046; 87086; 87088; 87177; 87205; 87209; 87493; 89055; 93005; 94760; 97116; 97161; 97530; 99285; J0360; J0456; J0696; J0744; J1650; J3475; J7030

== ENCOUNTER 2019-02-28 15:44 | Inpatient (IN) | payer OTHER, BC ==
[2019-02-28 16:26] LABS: Absolute Lymphocytes (CBC) 3.5 K/uL (0.7-4.9); Basophils % 0.5 % (0-1.3); Hematocrit 31.5 % (39.6-49.0); Lymphocytes % 27.5 % (15.3-44.8); MPV 8.9 fL (7.6-11.3); RBC Red Blood Cell Count 3.33 M/uL (4.33-5.43)
--- NOTE | 2019-02-28 16:37 | RAD REPORT ---
EXAM DESCRIPTION: Soraya Single View02/28/2019 4:21 pm CLINICAL HISTORY: Chest pain COMPARISON: August 2018 FINDINGS: The lungs appear clear of acute infiltrate. The heart is mildly enlarged. Pacemaker leads are in place. IMPRESSION: No acute abnormalities displayed
[2019-02-28 16:57] LABS: AST/SGOT 295 U/L (15-37); Albumin 3.5 g/dL (3.4-5.0); Alkaline Phosphatase 218 U/L (45-117); BUN Blood Urea Nitrogen 22 mg/dL (7-18); Bicarbonate 25 mmol/L (21-32); Bilirubin Direct 0.7 mg/dL (0-0.2); Bilirubin Total 1.1 mg/dL (0.2-1.0); Glucose Level 121 mg/dL (74-106); Magnesium 2.2 mg/dL (1.8-2.4); NT PRO-BNP 859 pg/mL (<450); Potassium 4.7 mmol/L (3.5-5.1); Protein, Total 7.3 g/dL (6.4-8.2); Sodium Level 141 mmol/L (136-145); Troponin (Emerg Dept Use Only) < 0.02 ng/mL (0.0-0.045)
[2019-02-28 17:19] LABS: ALT/SGPT 343 U/L (12-78)
--- NOTE | 2019-02-28 17:52 | ER ---
Nurse's Notes [facility] Name: Brigido Hargrove Age: 88 yrs Sex: Male : 1930 Arrival Date: 02/28/2019 Time: 15:45 Bed 8 Private MD: Diagnosis: Chest pain, unspecified Presentation: 02/28 15:45 Presenting complaint: EMS states: chest pain that began this morning and resolved prior aa5 to arrival to ER. Transition of care: patient was not received from another setting of care. Onset of symptoms was February 28, 2019. Risk Assessment: Do you want to hurt yourself or someone else? Patient reports no desire to harm self or others. Initial Sepsis Screen: Does the patient meet any 2 criteria? No. Patient's initial sepsis screen is negative. Does the patient have a suspected source of infection? No. Patient's initial sepsis screen is negative. Care prior to arrival: IV initiated. 18 GA, in the left antecubital area. 15:45 Acuity: DAVID 3 aa5 15:45 Method Of Arrival: EMS: [facility] aa5 Historical: - Allergies: 15:46 No Known Allergies; aa5 - Home Meds: 16:00 Plavix 75 mg Oral tab 1 tab once daily [Active]; ergocalciferol (vitamin D2) 50,000 aa5 unit oral cap once wkly [Active]; finasteride 5 mg oral tab once daily [Active]; Fish Oil oral oral daily [Active]; metoprolol succinate 50 mg oral Tb24 once daily [Active]; simvastatin 10 mg Oral tab 1 tab once daily [Active]; sotalol 80 mg Oral tab 2 times per day [Active]; verapamil 120 mg Oral tab take 2 tabs daily [Active]; aspirin 81 mg Oral chew 1 tab once daily [Active]; - PMHx: 15:46 Atrial Fib; Dementia; Glaucoma; Hyperlipidemia; Hypertension; aa5 - PSHx: 15:46 pacemaker; aa5 - Immunization history:: Adult Immunizations unknown. - Social history:: Patient/guardian denies using alcohol, street drugs, The patient lives with family, Smoking status: Patient/guardian denies using tobacco. - Ebola Screening: : No symptoms or risks identified at this time. - Family history:: not pertinent. Screenin:45 Abuse screen: Denies threats or abuse. Nutritional screening: No deficits noted. aa5 Tuberculosis screening: No symptoms or risk factors identified. Fall Risk Secondary diagnosis (15 points) dementia, IV access (20 points). Mental Status- Overestimates/Forgets Limitations (15 pts.). Total Guzman Fall Scale indicates High Risk Score (45 or more points). Fall prevention measures have been instituted. Side Rails Up X 2 Placed Close to Nursing Station. Assessment: 15:45 General: Appears comfortable, Behavior is calm, cooperative. Pain: Denies pain. Neuro: aa5 Level of Consciousness is awake, alert, obeys commands, Oriented to person, place, situation. Cardiovascular: Heart tones S1 S2 present Edema is absent. Rhythm is regular. Respiratory: Airway is patent Respiratory effort is even, unlabored, Respiratory pattern is regular, symmetrical. GI: Abdomen is round Bowel sounds present X 4 quads. Abd is soft and non tender X 4 quads. : No signs and/or symptoms were reported regarding the genitourinary system. EENT: No signs and/or symptoms were reported regarding the EENT system. Derm: Skin is pink, warm \T\ dry. Musculoskeletal: Range of motion: intact in all extremities. 16:20 Reassessment: Pt given urinal, pt voided once. . aa5 16:45 Reassessment: Patient is alert, oriented x 3, equal unlabored respirations, skin aa5 warm/dry/pink. Patient denies pain at this time. Cardiovascular: Rhythm is paced. 17:30 Reassessment: Patient is alert, oriented x 3, equal unlabored respirations, skin aa5 warm/dry/pink. Patient denies pain at this time. Awaiting disposition. 17:30 Reassessment: Pt voided once in urinal . aa5 18:00 Reassessment: Patient is alert, oriented x 3, equal unlabored respirations, skin aa5 warm/dry/pink. Patient denies pain at this time. 19:15 General: Appears in no apparent distress. Behavior is calm, cooperative, appropriate ea for age. Pain: Denies pain. Neuro: Level of Consciousness is awake, alert, obeys commands, Oriented to person, place, situation. Cardiovascular: Patient's skin is warm and dry. Respiratory: Airway is patent Respiratory effort is even, unlabored, Respiratory pattern is regular, symmetrical. GI: Abdomen is round Bowel sounds present X 4 quads. Derm: Skin is pink, warm \T\ dry. 20:44 Reassessment: Patient and/or family updated on plan of care and expected duration. Pain ea level reassessed. Patient is alert, oriented x 3, equal unlabored respirations, skin warm/dry/pink. 21:02 Reassessment: Patient and/or family updated on plan of care and expected duration. Pain ea level reassessed. Patient is alert, oriented x 3, equal unlabored respirations, skin warm/dry/pink. Patient denies pain at this time. Awaiting on orders and room assignment. 21:30 Reassessment: Report called to Bridgette LOPEZ on second floor. ea 22:20 Reassessment: Patient and/or family updated on plan of care and expected duration. Pain ea level reassessed. Patient is alert, oriented x 3, equal unlabored respirations, skin warm/dry/pink. Pt admitted to second floor, left ED via wheelchair per technical services consultant. Pt tolerating well. No s/s of pain or discomfort noted at this time. Vital Signs: 15:46 BP 166 / 63; Pulse 68; Resp 18 S; Temp 98.6(O); Pulse Ox 100% on R/A; Pain 0/10; aa5 16:55 BP 178 / 51; Pulse 60; Resp 16 S; Pulse Ox 100% on R/A; aa5 18:00 BP 167 / 57; Pulse 60; Resp 16 S; Pulse Ox 98% on R/A; Pain 0/10; aa5 19:43 BP 167 / 73; Pulse 67; Resp 18; Pulse Ox 98% ; ea 20:44 BP 189 / 59; Pulse 73; Resp 18; Pulse Ox 100% ; ea ED Course: 15:45 Patient arrived in ED. aa5 15:45 Arm band placed on. aa5 15:45 Patient has correct armband on for positive identification. Placed in gown. Bed in low aa5 position. Call light in reach. Side rails up X2. 15:45 hooker on on. Pulse ox on. NIBP on. aa5 15:47 Triage completed. aa5 15:49 Kathy Jones RN is Primary Nurse. aa5 15:51 Johann Gonzáles MD is Attending Physician. ma2 16:00 Initial lab(s) drawn, by ms, sent to lab. Inserted saline lock: 18 gauge in left kj1 antecubital area, using aseptic technique. 16:10 EKG done, by stress test technician. reviewed by Johann Gonzáles MD. 3 16:24 XRAY Chest (1 view) In Process Unspecified. EDMS 17:18 Notified ED physician of a critical lab result(s). [id number]. iw 17:50 Britta Garcia MD is Hospitalizing Provider. ma2 19:00 Report given to JESSICA Cornell. aa5 19:26 Hospitalizing Provider role handed off by Britta Garcia MD ma2 19:26 Johann Kelsey MD is Hospitalizing Provider. ma2 21:23 No provider procedures requiring assistance completed. Patient admitted, IV remains in ea place. Administered Medications: No medications were administered Outcome: 17:51 Decision to Hospitalize by Provider. ma2 19:40 Instructed on the need for admit. ea 22:22 Admitted to Med/surg accompanied by tech, via wheelchair, with chart, Report called to roma Palm RN 22:22 Condition: stable 22:23 Patient left the ED. ea Signatures: Dispatcher [employer] Nikole Jackson RN RN iw Calderon, Audri RN Aneta Gilliam RN RN ea Alzahri, Mohammad, MD MD [facility] Angy Toure 3 AmandeepAmy kj1 Corrections: (The following items were deleted from the chart) 15:58 15:46 BP 166 / 63; Pulse 68bpm; Resp 18bpm; Spontaneous; Pulse Ox 100% RA; Pain 0/10; aa5 aa5 17:17 15:45 Neuro: Level of Consciousness is awake, obeys commands, confused, Oriented to aa5 person, place, aa5
--- NOTE | 2019-02-28 17:53 | EDPHYS ---
Physician Documentation [facility] Name: Brigido Hargrove Age: 88 yrs Sex: Male : 1930 Arrival Date: 02/28/2019 Time: 15:45 Bed 8 Private MD: ED Physician Johann Gnozáles HPI: 02/28 17:49 This 88 yrs old Male presents to ER via EMS with complaints of Chest Pain. ma2 17:49 The patient or guardian reports chest pain that is located primarily in the substernal ma2 area. The pain does not radiate. The chest pain is described as burning. Duration: The patient or guardian reports a single episode. Severity of pain: At its worst the pain was mild in the emergency department the pain is unchanged. Historical: - Allergies: 15:46 No Known Allergies; aa5 - Home Meds: 16:00 Plavix 75 mg Oral tab 1 tab once daily [Active]; ergocalciferol (vitamin D2) 50,000 aa5 unit oral cap once wkly [Active]; finasteride 5 mg oral tab once daily [Active]; Fish Oil oral oral daily [Active]; metoprolol succinate 50 mg oral Tb24 once daily [Active]; simvastatin 10 mg Oral tab 1 tab once daily [Active]; sotalol 80 mg Oral tab 2 times per day [Active]; verapamil 120 mg Oral tab take 2 tabs daily [Active]; aspirin 81 mg Oral chew 1 tab once daily [Active]; - PMHx: 15:46 Atrial Fib; Dementia; Glaucoma; Hyperlipidemia; Hypertension; aa5 - PSHx: 15:46 pacemaker; aa5 - Immunization history:: Adult Immunizations unknown. - Social history:: Patient/guardian denies using alcohol, street drugs, The patient lives with family, Smoking status: Patient/guardian denies using tobacco. - Ebola Screening: : No symptoms or risks identified at this time. - Family history:: not pertinent. ROS: 17:49 Constitutional: Negative for fever, chills, and weight loss. ma2 17:49 All other systems are negative. Exam: 17:49 Constitutional: This is a well developed, well nourished patient who is awake, alert, ma2 and in no acute distress. Chest/axilla: Normal chest wall appearance and motion. Nontender with no deformity. No lesions are appreciated. Cardiovascular: Regular rate and rhythm with a normal S1 and S2. No gallops, murmurs, or rubs. Normal PMI, no JVD. No pulse deficits. Respiratory: Lungs have equal breath sounds bilaterally, clear to auscultation and percussion. No rales, rhonchi or wheezes noted. No increased work of breathing, no retractions or nasal flaring. Abdomen/GI: Soft, non-tender, with normal bowel sounds. No distension or tympany. No guarding or rebound. No evidence of tenderness throughout. MS/ Extremity: Pulses equal, no cyanosis. Neurovascular intact. Full, normal range of motion. Vital Signs: 15:46 BP 166 / 63; Pulse 68; Resp 18 S; Temp 98.6(O); Pulse Ox 100% on R/A; Pain 0/10; aa5 16:55 BP 178 / 51; Pulse 60; Resp 16 S; Pulse Ox 100% on R/A; aa5 18:00 BP 167 / 57; Pulse 60; Resp 16 S; Pulse Ox 98% on R/A; Pain 0/10; aa5 19:43 BP 167 / 73; Pulse 67; Resp 18; Pulse Ox 98% ; ea 20:44 BP 189 / 59; Pulse 73; Resp 18; Pulse Ox 100% ; ea MDM: 15:51 Patient medically screened. ma2 17:49 Differential diagnosis: acute pericarditis, anxiety, coronary artery disease. POLO Risk ma2 Score: 1 - ASA use in past 7 days, 1 - Recent [<24hrs] Severe Angina. Data reviewed: vital signs, nurses notes. Counseling: I had a detailed discussion with the patient and/or guardian regarding: the historical points, exam findings, and any diagnostic results supporting the discharge/admit diagnosis, the presence of at least one elevated blood pressure reading (>120/80) during this emergency department visit, the need for further work-up and treatment in the hospital. 02/28 15:52 Order name: Basic Metabolic Panel; Complete Time: 17:37 az2 02/28 15:52 Order name: CBC with Diff; Complete Time: 16:48 az2 02/28 15:52 Order name: LFT's; Complete Time: 17:37 az2 02/28 15:52 Order name: Magnesium; Complete Time: 17:37 ma2 02/28 15:52 Order name: NT PRO-BNP; Complete Time: 17:37 ma2 02/28 15:52 Order name: PT-INR; Complete Time: 16:48 ma2 02/28 15:52 Order name: Troponin (emerg Dept Use Only); Complete Time: 17:37 ma2 02/28 21:05 Order name: CBC with Automated Diff EDMS 02/28 21:05 Order name: CBC with Automated Diff EDMS 02/28 21:05 Order name: Comprehensive Metabolic Panel EDCA 02/28 21:05 Order name: Comprehensive Metabolic Panel EDMS 02/28 21:05 Order name: Magnesium EDCA 02/28 21:05 Order name: Magnesium EDCA 02/28 21:05 Order name: Phosphorus EDCA 02/28 15:52 Order name: XRAY Chest (1 view); Complete Time: 17:37 ma2 02/28 15:52 Order name: EKG; Complete Time: 15:56 ma2 02/28 15:52 Order name: Cardiac monitoring; Complete Time: 15:57 ma2 02/28 15:52 Order name: EKG - Nurse/Tech; Complete Time: 15:57 ma2 02/28 15:52 Order name: IV Saline Lock; Complete Time: 15:57 ma2 02/28 15:52 Order name: Labs collected and sent; Complete Time: 15:57 ma2 02/28 15:52 Order name: O2 Per Protocol; Complete Time: 15:57 ma2 02/28 20:54 Order name: Abdomen EDCA 02/28 21:04 Order name: CONS Physician Consult [facility] 02/28 21:04 Order name: CONS Physician Consult [facility] 02/28 21:04 Order name: NPO EDCA 02/28 21:05 Order name: EKG Electrocardiogram EDCA 02/28 21:05 Order name: EKG Electrocardiogram EDCA 02/28 21:05 Order name: Phosphorus EDCA 02/28 21:39 Order name: Urine Dipstick--Ancillary (enter results) em1 02/28 21:49 Order name: Urine Dipstick-Ancillary EDCA 02/28 15:52 Order name: O2 Sat Monitoring; Complete Time: 15:57 ma2 Administered Medications: No medications were administered Disposition: 02/28/19 17:51 Hospitalization ordered by Johann Kelsey for Observation. Preliminary diagnosis is Chest pain, unspecified. - Bed requested for Telemetry/MedSurg (observation). - Status is Observation. ea - Condition is Stable. - Problem is new. - Symptoms are unchanged. UTI on Admission? No Signatures: Dispatcher [employer] EDMS Kathy Jones, RN RN aa5 Yeimi Lee, RN RN Aneta He RN RN ea Alzahri, Mohammad, MD MD ma2 Corrections: (The following items were deleted from the chart) 19: 17:51 Hospitalization Ordered by Britta Garcia MD for Observation. Preliminary ma2 diagnosis is Chest pain, unspecified. Bed requested for Telemetry/MedSurg (observation). Status is Observation. Condition is Stable. Problem is new. Symptoms are unchanged. UTI on Admission? No. ma2 21:11 19:26 02/28/2019 17:51 Hospitalization Ordered by Johann Kelsey MD for Observation. cg Preliminary diagnosis is Chest pain, unspecified. Bed requested for Telemetry/MedSurg (observation). Status is Observation. Condition is Stable. Problem is new. Symptoms are unchanged. UTI on Admission? No. ma2 22:23 21:11 02/28/2019 17:51 Hospitalization Ordered by Johann Kelsey MD for Observation. ea Preliminary diagnosis is Chest pain, unspecified. Bed requested for Telemetry/MedSurg (observation). Status is Observation. Condition is Stable. Problem is new. Symptoms are unchanged. UTI on Admission? No.
--- NOTE | 2019-02-28 18:30 | EKG ---
Test Date: 2019-02-28 Test Time: 15:52:03 Chorus Dancer: VINCE MEASUREMENT RESULTS: Intervals: Rate: 64 VT: 184 QRSD: 160 QT: 496 QTc: [address] [employer]: P: 48 VT: 184 QRS: -89 T: 71 INTERPRETIVE STATEMENTS: AV dual-paced rhythm Abnormal ECG Compared to ECG 08/31/2018 16:25:36 Sinus rhythm no longer present Atrial premature complex(es) no longer present Electronically Signed On 02-28-19 18:29:15 CDT by Beto Smith
[2019-02-28] MEDS ORDERED: ACETAMINOPHEN 500 MG TAB PO PRN (20:53)
[2019-02-28] MEDS ORDERED: HYDROMORPHONE HCL 1 MG/ML INJ IV PRN (20:53)
[2019-02-28] MEDS ORDERED: ONDANSETRON 4 MG/2 ML VIAL IV PRN (20:53)
[2019-02-28] MEDS ORDERED: Levofloxacin500mg IV 500 MG/100 ML BAG IV SCH ×3 (21:00→23:00)
[2019-02-28 21:48] LABS: Urine Blood 1+ (NEG); Urine Glucose NEGATIVE (NEG); Urine Protein NEGATIVE (NEG); Urine Specific Gravity 1.015 (1.005-1.030)
[2019-02-28 22:39] VITALS: BMI 24.5
[2019-02-28] MEDS: NA CHLORIDE 0.9% 1,000 ML IV SCH (23:14)
[2019-02-28 23:39] LABS: Urine Appearance CLEAR; Urine Bilirubin NEGATIVE (NEG); Urine Blood NEGATIVE (NEG); Urine Color YELLOW; Urine Glucose NEGATIVE (NEG); Urine Protein NEGATIVE (NEG); Urine Specific Gravity 1.025 (1.005-1.030)
[2019-02-28 23:48] LABS: Urine Microscopic Reflex NO UMIC
[2019-03-01] MEDS: METRONIDAZOLE 500mg IVPB 500 MG/100 ML BAG IV SCH ×2 (00:29→05:19)
[2019-03-01 05:44] LABS: Absolute Lymphocytes (CBC) 2.8 K/uL (0.7-4.9); Basophils % 0.4 % (0-1.3); Hematocrit 31.6 % (39.6-49.0); Lymphocytes % 32.4 % (15.3-44.8); MPV 8.7 fL (7.6-11.3); RBC Red Blood Cell Count 3.41 M/uL (4.33-5.43)
[2019-03-01 06:33] LABS: Albumin 3.5 g/dL (3.4-5.0); Bilirubin Total 1.7 mg/dL (0.2-1.0); Magnesium 2.2 mg/dL (1.8-2.4); Phosphorus 4.3 mg/dL (2.5-4.9); Potassium 4.1 mmol/L (3.5-5.1); Protein, Total 7.4 g/dL (6.4-8.2)
--- NOTE | 2019-03-01 08:46 | RAD REPORT ---
EXAM DESCRIPTION: CT - Abdomen Pelvis W Contrast - 02/28/2019 9:38 pm CLINICAL HISTORY: Abdominal pain/elevated liver function test enzymes COMPARISON: none. TECHNIQUE: Computed axial tomography of the abdomen pelvis was obtained. 100 cc Isovue-300 was admin istered intravenously. Oral contrast was not requested which limits evaluation of bowel. All CT scans are performed using dose optimization technique as appropriate and may include automated exposure control or mA/KV adjustment according to patient size. FINDINGS: Gallbladder wall is thickened. The liver, spleen, pancreas, adrenal and kidneys appear unremarkable. There is no evidence of diverticulitis. Normal appendix Rectum is mildly distended with stool. Small umbilical hernia IMPRESSION: Thickened gallbladder wall may indicate cholecystitis. Ultrasound recommended
--- NOTE | 2019-03-01 09:37 | P.HP ---
Certification for Inpatient Patient admitted to: Inpatient With expected LOS: >2 Midnights Patient will require the following post-hospital care: None Practitioner: I am a practitioner with admitting privileges, knowledge of patient current condition, hospital course, and medical plan of care. Services: Services provided to patient in accordance with Admission requirements found in Title 42 Section 412.3 of the Code of Federal Regulations Patient History Date of Service: 02/28/19 Reason for admission: Chest pain rule out acute coronary syndrome/ elevated LFTs History of Present Illness: Patient is a 88-year-old gentleman who came into the hospital with chest discomfort. Patient does not really remember much of the discomfort but states it is resolved. He does not have any more chest pain. He decided to come into the emergency room for further evaluation. He denies any complaints at this time. He states that he was having some chest pain but it is resolved. He denies any nausea or vomiting. He denies any abdominal pain. I did mention to him that some of his liver tests were abnormal. He says he has never been told that he had any liver issues. We will go ahead and admit him to the hospital for further treatment. He will get a CT scan of his abdomen and pelvis. Will get GI and cardiology consultation. Hold off on any liver toxic medications including Tylenol and statins. Continue on antibiotic therapy. Await further recommendations per consultants Allergies No Known Allergies Allergy (Verified 02/28/19 22:39) Home Medications: Finasteride 5 mg PO DAILY 08/31/18 Simvastatin 10 mg PO BEDTIME 08/31/18 Tamsulosin [Flomax*] 0.4 mg PO BEDTIME 08/31/18 Aspirin Chewable [Aspirin Chewable*] 1 tab PO DAILY 02/28/19 Clopidogrel Bisulfate [Plavix] 75 mg PO DAILY 02/28/19 Docosahexanoic AC/Epa [Fish Oil 1,000 MG*] 1 cap PO DAILY 02/28/19 Ensure Enlive 1 can PO BID 02/28/19 Ergocalciferol (Vitamin D2) [Drisdol] 50,000 unit PO SEECOM 02/28/19 Metoprolol Succinate [Toprol Xl*] 1 tab PO DAILY 02/28/19 Ointment Base No.104 [Hydrophilic Ointment Base] 1 loren TOP BID 02/28/19 Sotalol HCl [Betapace*] 1 tab PO BID 02/28/19 Verapamil HCl 240 mg PO DAILY 02/28/19 - Past Medical/Surgical History Has patient received pneumonia vaccine in the past: Yes Diabetic: No -: HTN -: hyperlipidemia -: Afib -: Dementia -: pacemaker insertion - Family History Father Medical History: Heart disease, Hypertension - Social History Smoking Status: Never smoker Alcohol use: No CD- Drugs: No Caffeine use: Yes Place of Residence: Home Review of Systems 10-point ROS is otherwise unremarkable Physical Examination - Vital Signs Temperature: 97 F Blood Pressure: 166/73 Pulse: 63 Respirations: 18 Pulse Ox (%): 98 - Physical Exam General: Alert, In no apparent distress, Oriented x1, Confused HEENT: Atraumatic, PERRLA, Mucous membr. moist/pink, EOMI, Sclerae nonicteric Neck: Supple, 2+ carotid pulse no bruit, No LAD, Without JVD or thyroid abnormality Respiratory: Clear to auscultation bilaterally, Normal air movement Cardiovascular: Regular rate/rhythm, Normal S1 S2, Systolic murmur Gastrointestinal: Normal bowel sounds, Soft and benign, Non-distended, No tenderness, No rebound, No guarding Musculoskeletal: No clubbing, No swelling, No tenderness Integumentary: No rashes Neurological: Normal gait, Normal speech, Normal tone, Sensation intact, Cranial nerves 3-12 intact, Normal affect, Abnormal strength Lymphatics: No axilla or inguinal lymphadenopathy - Studies Laboratory Data (last 24 hrs) 02/28/19 15:55: PT 11.8, INR 1.00 02/28/19 15:55: WBC 12.6 H, Hgb 10.5 L, Hct 31.5 L, Plt Count 232 02/28/19 15:55: Sodium 141, Potassium 4.7, BUN 22 H, Creatinine 1.04, Glucose 121 H, Magnesium 2.2, Total Bilirubin 1.1 H, AST 295 H, ALT 343 H*, Alkaline Phosphatase 218 H Assessment & Plan - Problems (Diagnosis) (1) Chest pain, rule out acute myocardial infarction Current Visit: Yes Status: Acute (2) Elevated liver function tests Current Visit: Yes Status: Acute (3) Cholecystitis, chronic Current Visit: Yes Status: Acute (4) Atrial fibrillation Current Visit: No Status: Acute (5) Dementia Current Visit: No Status: Chronic Qualifiers: (6) HTN (hypertension) Current Visit: No Status: Chronic Qualifiers: (7) Hyperlipidemia Current Visit: No Status: Chronic Qualifiers: - Plan 1. Serial troponins and EKG 2. Cardiology consultation 3. Echocardiogram 4. Anti-platelet therapy, 5. Repeat liver function testing 6. Abdominal CT scan 7. GI consultation 8. IV antibiotics 9. NPO at this time 10. GI and DVT prophylaxis Discharge Plan: Home Plan to discharge in: Greater than 2 days - Advance Directives Does patient have a Living Will: No Does patient have a Durable POA for Healthcare: Yes - Code Status/Comfort Care Code Status Assessed: Yes Code Status: Full Code Critical Care: No Time Spent Managing PTS Care (In Minutes): 45
[2019-03-01] MEDS: PIPER/TAZO/NS 3.375gm 3.375 GM/100 ML BAG IVPB SCH ×2 (09:44→17:40)
[2019-03-01] MEDS: NA CHLORIDE 0.9% 1,000 ML IV SCH (10:20)
[2019-03-01] MEDS: SOTALOL HCL 80 MG TAB PO SCH ×2 (10:23→21:53)
--- NOTE | 2019-03-01 11:24 | RAD REPORT ---
EXAM DESCRIPTION: US - Abdomen Exam Limited - 03/01/2019 11:11 am CLINICAL HISTORY: cholecystitis COMPARISON: Abdomen Pelvis W Contrast dated 02/28/2019 FINDINGS: The gallbladder demonstrates several small shadowing gallstones. Gallbladder wall is thick ened to 6 mm with mild edema in the wall. The common bile duct is normal measuring 3 mm. The liver demonstrates no findings of intrahepatic biliary dilatation. IMPRESSION: Cholelithiasis with early acute cholecystitis suspected.
[2019-03-01 11:47] LABS: Absolute Lymphocytes (CBC) 2.4 K/uL (0.7-4.9); Basophils % 0.4 % (0-1.3); Hematocrit 33.2 % (39.6-49.0); Lymphocytes % 21.3 % (15.3-44.8); MPV 8.8 fL (7.6-11.3); RBC Red Blood Cell Count 3.59 M/uL (4.33-5.43)
[2019-03-01 11:55] LABS: Albumin 3.5 g/dL (3.4-5.0); Bilirubin Total 1.2 mg/dL (0.2-1.0); Potassium 3.8 mmol/L (3.5-5.1); Protein, Total 7.7 g/dL (6.4-8.2)
--- NOTE | 2019-03-01 15:56 | EKG ---
Test Date: 2019-03-01 Test Time: 07:35:46 Internal Control Consultant: DEEPAK MEASUREMENT RESULTS: Intervals: Rate: 71 WV: 170 QRSD: 162 QT: 496 QTc: 538 [place]: P: 49 WV: 170 QRS: -86 T: 76 INTERPRETIVE STATEMENTS: AV sequential or dual chamber electronic pacemaker Compared to ECG 02/28/2019 15:52:03 Ventricular-paced complex(es) or rhythm no longer present Electronically Signed On 03-01-19 15:54:21 CDT by Beto Smith
[2019-03-01] MEDS ORDERED: HYDROMORPHONE HCL 0.5 MG/0.5 ML INJ IV PRN (16:40)
[2019-03-01] MEDS ORDERED: KCL 20 MEQ/100 mL IVPB 20 MEQ/100 ML BAG IV SCH (17:00)
[2019-03-01] MEDS: ENOXAPARIN 30 MG/0.3 ML SQ SCH (17:40)
--- NOTE | 2019-03-01 17:51 | P.CNS ---
Date of Consult: 03/01/19 PC: I was asked to see this 88-year-old male in regards to his right upper quadrant abdominal pain, and abnormal liver function tests. HPC: Patient was brought to the operating room, says he felt faint and weak. Family states that he has been going downhill over the last few months. Has not had much energy. Recently has had a pacemaker put in. Says he feels faint at [place] generally not well. PMH: Coronary artery disease, history ratio fibrillation coma PSHx: Paste made SOC: No known allergies (medications reviewed) SYS REVIEW: No cough, wheeze, shortness of breath. No chest pain or palpitations. Has alteration in bowel habit with chronic constipation. Family stasis finds it hard to eat and does not drink much fluids. Has symptoms of prostate enlargement. O/E awake alert comfortable at moment, denies being in any pain at all HEENT: Not jaundice Chest: Chest movement is equal bilaterally, has a pacemaker implanted ABD: Soft nontender mildly distended no guarding or rebound LOCO: Intact DATA: CT scan demonstrates a gallbladder, mild amount of fluid consistent with cholecystitis as well doses ultrasound. They cannot evaluate the duct IMPRESSION: Patient has cholecystitis with cholelithiasis. Possible choledocholithiasis PLAN: The patient has been in the hospital today. He has been relatively clean pain-free. He was scheduled for an MRCP, but due to his pacemaker this procedure had to be canceled. His liver function tests are stable an at the moment, and clinically the patient does not have any signs of acute cholecystitis. I will give him some clear liquids this evening. We will also give him some mineral oil, and a Fleet's enema. I will make him NPO at midnight , and re-evaluate him in the morning. I have discussed this with the family. Apparently the last time he had general anesthetic it caused him severe mental changes 4 weeks afterwards. In this age group there is increased morbidity and mortality. We will try conservative measures for now.
[2019-03-01] MEDS ORDERED: BISACODYL 10 MG RECTAL SUPP PR ONE (17:58)
[2019-03-01] MEDS ORDERED: MINERAL OIL 30 ML UCUP PO ONE (17:59)
[2019-03-01] MEDS ORDERED: POTASSIUM CL SA 10 MEQ TAB PO ONE (18:00)
--- NOTE | 2019-03-01 18:30 | P.PN ---
Subjective Date of Service: 03/01/19 Chief Complaint: Chest pain rule out acute coronary syndrome/ elevated LFTs Subjective: No new changes, No C/O voiced, Tolerating diet (Patient denies any abdominal pain.) Review of Systems 10-point ROS is otherwise unremarkable Physical Examination - Vital Signs Temperature: 98.3 F Blood Pressure: 108/52 Pulse: 101 Respirations: 18 Pulse Ox (%): 98 - Physical Exam General: Alert, In no apparent distress, Oriented x3 HEENT: Normocephalic, Mucous membr. moist/pink Neck: JVD not distended Respiratory: Clear to auscultation bilaterally, Normal air movement Cardiovascular: No edema, Regular rate/rhythm, Normal S1 S2 Gastrointestinal: Normal bowel sounds, Soft and benign, No tenderness Musculoskeletal: No clubbing, No swelling, No erythema Integumentary: No rashes Neurological: Normal strength at 5/5 x4 extr, Cranial nerves 3-12 intact, Normal reflexes 2+, Normal affect Assessment And Plan - Current Problems (Diagnosis) (1) Chest pain, rule out acute myocardial infarction Current Visit: Yes Status: Acute Plan: Will get another troponin to rule out ACS. (2) Elevated liver function tests Current Visit: Yes Status: Acute Plan: Patient has no clinical evidence of cholecystitis at this time. MRCP recommended but patient has a pacemaker and cannot undergo MRI. General surgery consult and are planning for lap cholecystectomy with intraop cholangiography. Patient will be hydrated overnight for another evaluation in a.m. before proceeding with cholecystectomy. (3) Atrial fibrillation Current Visit: No Status: Acute Plan: On sotalol not on any chronic anticoagulation.
--- NOTE | 2019-03-01 22:19 | CON ---
Date of Consultation: 03/01/[address] Dinero on 02/28/2019. I saw the patient on 03/01/2019. Reason For Consultation: Chest pain. History Of Present Illness: Mr. Hargrove is an 88-year-old white male, has a history of dementia, atria l fibrillation. He is status post pacemaker placement. Has also history of hypertension, dyslipidem ia, and glaucoma. Came in with chest pain, some nausea, some diaphoresis. No vomiting. No PND, ort hopnea, pedal edema, palpitation, or syncope. Workup so far included ALT of 1000, AST of 687, alkali ne phosphatase of 320. BNP was 859 with a negative troponin. EKG showed paced rhythm. Chest x-ray was negative. On ultrasound of the gallbladder, he was found to have cholelithiasis as well as minnie cystitis. He has elevated white count and he is now on double antibiotics and is feeling better. I do not see a surgical consult yet. Past Medical History: As stated above. Allergies: NONE. Review of Systems: Negative. Social History: Negative. Family History: Noncontributory. Medications: At home include aspirin, metoprolol, Plavix, sotalol, Zocor, and verapamil. Physical Examination: Vital Signs: Stable. He was afebrile. He was in paced rhythm. Blood pressure was 174/95. HEENT: Negative. Neck: Supple. No bruit. Chest: Clear to auscultation and percussion. Cardiac: Revealed a paced rhythm. No murmurs, gallops, or rubs. Abdomen: Benign. Extremities: Revealed no clubbing, cyanosis, or edema. Diagnostic Data: As stated earlier. Impression: 1.Chronic atrial fibrillation, status post pacemaker, on sotalol. He is actually in a paced rhythm with underlying sinus rhythm. 2.Hypertension. 3.Dyslipidemia, well controlled. 4.Dementia. 5.Glaucoma. 6.Acute cholecystitis. Plan: Patient has had normal echocardiogram in the recent years. There are no cardiac symptoms. No clinical evidence of congestive heart failure or coronary artery disease, and I am comfortable with him going through surgery, if this is the plan. Otherwise, I will continue present regimen. I will be available for questions if the need arises. MARY/CHALINO Voice ID: [id number] Report ID: [id number]
[2019-03-02] MEDS: NA CHLORIDE 0.9% 1,000 ML IV SCH ×2 (00:58→22:09)
[2019-03-02] MEDS: PIPER/TAZO/NS 3.375gm 3.375 GM/100 ML BAG IVPB SCH ×3 (00:58→16:19)
[2019-03-02 02:26] VITALS: O2SAT 97
[2019-03-02 05:54] LABS: Absolute Lymphocytes (CBC) 3.2 K/uL (0.7-4.9); Basophils % 0.5 % (0-1.3); Hematocrit 30.8 % (39.6-49.0); Lymphocytes % 36.6 % (15.3-44.8); MPV 8.8 fL (7.6-11.3); RBC Red Blood Cell Count 3.34 M/uL (4.33-5.43)
[2019-03-02 06:26] LABS: Albumin 3.2 g/dL (3.4-5.0); Bilirubin Total 1.2 mg/dL (0.2-1.0); Potassium 4.4 mmol/L (3.5-5.1); Protein, Total 6.9 g/dL (6.4-8.2)
[2019-03-02] MEDS: ENOXAPARIN 30 MG/0.3 ML SQ SCH ×2 (09:00→09:21)
[2019-03-02] MEDS: SOTALOL HCL 80 MG TAB PO SCH ×2 (09:21→22:04)
--- NOTE | 2019-03-02 13:53 | P.PN ---
Date of Service: 03/02/19 S: Patient has no complaints, states his pain appears to be much improved. O : abdomen is soft, no guarding or rebound. Patient is clinically not jaundice. A: Patient is appears to have attack of biliary colic. Had elevation of liver enzymes. Bilirubin is still 70 elevated at 1.1 but his liver enzymes are resolving. P: Will start the patient on a diet. His cholecystitis appears to be resolving on conservative therapy.
--- NOTE | 2019-03-02 17:10 | P.PN ---
Subjective Date of Service: 03/02/19 Chief Complaint: Chest pain rule out acute coronary syndrome/ elevated LFTs Subjective: No C/O voiced, Doing well Patient currently has no complaint. He denies any nausea or abdominal pain. Review of Systems 10-point ROS is otherwise unremarkable Physical Examination - Vital Signs Temperature: 98 F Blood Pressure: 192/96 Pulse: 46 Respirations: 20 Pulse Ox (%): 98 - Physical Exam General: Alert, In no apparent distress, Oriented x3 HEENT: Mucous membr. moist/pink Neck: Supple, JVD not distended Respiratory: Clear to auscultation bilaterally, Normal air movement Cardiovascular: No edema, Regular rate/rhythm, Normal S1 S2 Gastrointestinal: Normal bowel sounds, Soft and benign, No tenderness Musculoskeletal: No swelling, No erythema Integumentary: No rashes Neurological: Normal strength at 5/5 x4 extr Assessment And Plan - Current Problems (Diagnosis) (1) Chest pain, rule out acute myocardial infarction Current Visit: Yes Status: Acute Plan: Troponin is negative. (2) Elevated liver function tests Current Visit: Yes Status: Acute Plan: Patient has no clinical evidence of cholecystitis at this time. MRCP recommended but patient has a pacemaker and cannot undergo MRI. LFTs trending down significantly. Patient might have experienced a biliary colic or passed a stone. Total bilirubin is still slightly elevated. Patient and family not keen on surgery. Continue supportive measures with IV hydration. Monitor LFTs. General surgery input appreciated. (3) Atrial fibrillation Current Visit: No Status: Acute Plan: On sotalol not on any chronic anticoagulation.
[2019-03-03] MEDS: PIPER/TAZO/NS 3.375gm 3.375 GM/100 ML BAG IVPB SCH ×2 (00:50→08:39)
[2019-03-03] MEDS: NA CHLORIDE 0.9% 1,000 ML IV SCH (02:20)
[2019-03-03 06:25] LABS: Albumin 3.3 g/dL (3.4-5.0); Bilirubin Total 0.8 mg/dL (0.2-1.0); Potassium 4.1 mmol/L (3.5-5.1); Protein, Total 6.7 g/dL (6.4-8.2)
[2019-03-03] MEDS: SOTALOL HCL 80 MG TAB PO SCH (08:39)
[2019-03-03] MEDS: ENOXAPARIN 30 MG/0.3 ML SQ SCH (09:00)
[2019-03-03 12:38] VITALS: BP 173/74; TEMP 97.5
--- NOTE | 2019-03-03 12:45 | P.DS ---
Admission Date: 02/28/19 Discharge Date: 03/03/19 Disposition: ROUTINE DISCHARGE Discharge Condition: GOOD Reason for Admission: Chest pain rule out acute coronary syndrome/ elevated LFTs - Problems (1) Chest pain, rule out acute myocardial infarction Current Visit: Yes Status: Acute (2) Elevated liver function tests Current Visit: Yes Status: Acute (3) Atrial fibrillation Current Visit: No Status: Acute Brief History of Present Illness: 88-year-old gentleman with a history of coronary artery disease and chronic atrial fibrillation presents to the emergency department with complaint of chest discomfort of brief duration, no abdominal pain, no shortness of breath, no nausea or diaphoresis. Chest pain had resolved by the time patient got to the ED. In the ED, initial troponin was negative, EKG showed paced rhythm and nondiagnostic for ischemia. His liver enzymes were markedly elevated. CT abdomen and pelvis done reported gallstones with thickened gallbladder wall. No biliary dilatation. Patient was admitted for further management of possible acute cholecystitis. Hospital Course: Patient admitted to the medical floor. General surgery consulted. Patient was seen by Dr. Dennis recommended conservative management given no clinical evidence of acute cholecystitis. His liver enzymes and bilirubin trended down with IV hydration with normal saline. Hyperbilirubinemia resolved. Patient might have passed a stone. Family preferred that patient did not undergo surgery. He had no symptoms during the hospital stay. The patient is deemed stable for discharge. He is informed to follow with Dr. Dennis as outpatient or return to the ED if he develops abdominal pain. His blood pressure was elevated. Patient is prescribed amlodipine. Vital Signs/Physical Exam: Temp Pulse Resp BP Pulse Ox 97.1 F 82 17 143/68 H 96 03/03/19 08:00 03/03/19 08:00 03/03/19 08:00 03/03/19 08:00 03/03/19 08:00 General: Alert, In no apparent distress, Oriented x3 HEENT: Mucous membr. moist/pink Neck: Supple, JVD not distended, No Thyromegaly Respiratory: Clear to auscultation bilaterally, Normal air movement Cardiovascular: No edema, Regular rate/rhythm, Normal S1 S2 Gastrointestinal: Normal bowel sounds, Soft and benign, No tenderness Musculoskeletal: No clubbing, No erythema Integumentary: No rashes Neurological: Normal strength at 5/5 x4 extr, Cranial nerves 3-12 intact Laboratory Data at Discharge: WBC 8.6 K/uL (4.3-10.9) D 03/02/19 05:13 Hgb 10.8 g/dL (13.6-17.9) L 03/02/19 05:13 Hct 30.8 % (39.6-49.0) L 03/02/19 05:13 Plt Count 228 K/uL (152-406) 03/02/19 05:13 PT 11.8 SECONDS (9.5-12.5) 02/28/19 15:55 INR 1.00 02/28/19 15:55 Sodium 142 mmol/L (136-145) 03/03/19 05:27 Potassium 4.1 mmol/L (3.5-5.1) 03/03/19 05:27 BUN 20 mg/dL (7-18) H 03/03/19 05:27 Creatinine 1.17 mg/dL (0.55-1.3) 03/03/19 05:27 Glucose 91 mg/dL (74-106) 03/03/19 05:27 Phosphorus 4.3 mg/dL (2.5-4.9) 03/01/19 05:27 Magnesium 2.2 mg/dL (1.8-2.4) 03/01/19 05:27 Total Bilirubin 0.8 mg/dL (0.2-1.0) 03/03/19 05:27 AST 95 U/L (15-37) H D 03/03/19 05:27 ALT 410 U/L (12-78) H* D 03/03/19 05:27 Alkaline Phosphatase 208 U/L (45-117) H 03/03/19 05:27 Home Medications: Finasteride 5 mg PO DAILY 08/31/18 Simvastatin 10 mg PO BEDTIME 08/31/18 Tamsulosin [Flomax*] 0.4 mg PO BEDTIME 08/31/18 Aspirin Chewable [Aspirin Chewable*] 1 tab PO DAILY 02/28/19 Clopidogrel Bisulfate [Plavix*] 75 mg PO DAILY 02/28/19 Docosahexanoic AC/Epa [Fish Oil 1,000 MG*] 1 cap PO DAILY 02/28/19 Ensure Enlive 1 can PO BID 02/28/19 Ergocalciferol (Vitamin D2) [Drisdol] 50,000 unit PO SEECOM 02/28/19 Ointment Base No.104 [Hydrophilic Ointment Base] 1 loren TOP BID 02/28/19 Sotalol HCl [Betapace*] 1 tab PO BID 02/28/19 Amlodipine [Norvasc*] 10 mg PO DAILY 30 Days #30 tab 03/03/19 New Medications: Amlodipine [Norvasc*] 10 mg PO DAILY 30 Days #30 tab Diet: AHA Activity: Ad sharmila
[2019-03-06 04:29] LABS: HBsAG Nonreactive (Nonreactive)
== END 2019-03-03 14:15 | disposition home or self-care (01) | DRG 446 ==
LOC: ER 15:44 → ERHOLD 20:54 → 2ND 21:33
PROVIDERS: ADMIT Hospitalist; ATTEND Hospitalist
DX: K80.10 Calculus of gallbladder with chronic cholecystitis without obstruction (principal); R79.89 Other specified abnormal findings of blood chemistry; I48.2 Chronic atrial fibrillation; I25.10 Atherosclerotic heart disease of native coronary artery without angina pectoris; F03.90 Unspecified dementia, unspecified severity, without behavioral disturbance, psychotic disturbance, mood disturbance, and anxiety; E78.5 Hyperlipidemia, unspecified; H40.9 Unspecified glaucoma; Z95.0 Presence of cardiac pacemaker
CPT/HCPCS: 36415; 71045; 74177; 76705; 80048; 80053; 80074; 80076; 81003; 82550; 83735; 83880; 84100; 84484; 85025; 85610; 93005; 99285; J1650; J2543; J7030; Q9967

== ENCOUNTER 2019-03-28 14:27 | Inpatient (IN) | payer OTHER, BC ==
[2019-03-28 14:53] LABS: Absolute Lymphocytes (CBC) 3.1 K/uL (0.7-4.9); Basophils % 0.4 % (0-1.3); Hematocrit 33.4 % (39.6-49.0); Lymphocytes % 24.5 % (15.3-44.8); Protime INR 1.02; RBC Red Blood Cell Count 3.58 M/uL (4.33-5.43)
[2019-03-28 15:19] LABS: ALT/SGPT 51 U/L (12-78); AST/SGOT 49 U/L (15-37); Albumin 3.7 g/dL (3.4-5.0); Alkaline Phosphatase 108 U/L (45-117); BUN Blood Urea Nitrogen 18 mg/dL (7-18); Bicarbonate 26 mmol/L (21-32); Bilirubin Direct 0.7 mg/dL (0-0.2); Bilirubin Total 1.2 mg/dL (0.2-1.0); Glucose Level 99 mg/dL (74-106); Magnesium 2.3 mg/dL (1.8-2.4); NT PRO-BNP 2413 pg/mL (<450); Potassium 4.2 mmol/L (3.5-5.1); Sodium Level 142 mmol/L (136-145); Troponin (Emerg Dept Use Only) < 0.02 ng/mL (0.0-0.045)
--- NOTE | 2019-03-28 15:25 | RAD REPORT ---
EXAM DESCRIPTION: RAD - Chest Single View - 03/28/2019 2:47 pm CLINICAL HISTORY: Chest pain pressure COMPARISON: February 28 TECHNIQUE: AP portable chest image was obtained 1438 hours . FINDINGS: Lung volumes are low. No peripheral mass consolidation. Pacemaker is in place. Interstitia l pattern not clearly different from comparison. Scarring or atelectasis changes are seen in each bas e. Heart and vasculature are normal. No measurable pleural effusion and no pneumothorax. No acute bon y abnormality seen. No acute aortic findings suspected. IMPRESSION: No acute cardiopulmonary process. Chest findings are not substantially different from comparison.
[2019-03-28 15:41] LABS: Lipase > 30000 U/L (73-393)
[2019-03-28 15:50] LABS: Urine Blood NEGATIVE (NEG); Urine Glucose NEGATIVE (NEG); Urine Protein NEGATIVE (NEG); Urine Specific Gravity 1.015 (1.005-1.030); Urine pH 5.5 (5.0-7.0)
[2019-03-28] MEDS ORDERED: FAMOTIDINE 20 MG/2 ML VIAL IV ONE (16:25)
[2019-03-28] MEDS ORDERED: NA CHLORIDE 0.9% 1,000 ML ONE (16:25)
--- NOTE | 2019-03-28 16:59 | RAD REPORT ---
EXAM DESCRIPTION: CT - Abdomen Pelvis W Contrast - 03/28/2019 4:46 pm CLINICAL HISTORY: ABD PAIN COMPARISON: February 28, 2019 CT study, March 01 gallbladder ultrasound TECHNIQUE: Biphasic, helical CT imaging of the abdomen and pelvis was performed following 100 ml non -ionic IV contrast. Oral contrast was given. Due to elevated injection pressure, contrast injection w as halted midway through the examination and then restarted after arm positioning. All CT scans are performed using dose optimization technique as appropriate and may include automated exposure control or mA/KV adjustment according to patient size. FINDINGS: No suspicious findings in the lung bases. The liver, spleen, and pancreas show no suspicious findings. Gallbladder wall thickening and edema ar e again noted with enhancement of the wall. This is a pattern previously seen on the February imagin g studies. No biliary tree dilatation evident. Findings remain suspicious for cholecystitis and needs correlation with clinical presentation. Symmetric renal function is seen with no hydronephrosis or suspicious renal mass. No pyelonephritis o r acute parenchymal process. No bladder abnormalities. No adrenal abnormalities. Stomach is dilated containing food, contrast and air. No gastric wall thickening or mass. No gastric outlet obstruction suspected. No small bowel abnormality. No appendicitis. Moderate stool volume is p resent in the right-side of the colon. There is diverticulosis of the transverse, descending and sigm oid portions of the colon. A large amount of stool is present dilating the rectum and distal sigmoid colon to 6 cm. No colon wall thickening or mass. No free air, free fluid or inflammatory stranding. No bulky lymphadenopathy or mass. Fat only umbi lical hernia is present. Right testicle is in the inguinal canal. Disc and bone degenerative changes are present. IMPRESSION: Gallbladder wall thickening and edema. This is suspicious for cholecystitis. Similar fin dings were seen on the February ultrasound and CT studies. No biliary tree dilatation. No pancreatitis findings. No acute GI process suspected. Stomach is dilated gastric outlet obstruction is not suspected. Patien t has a dilated rectum and distal sigmoid colon to 6 cm
--- NOTE | 2019-03-28 17:08 | ER ---
Nurse's Notes [facility] Name: Brigido Hargrove Age: 88 yrs Sex: Male : 1930 Arrival Date: 03/28/2019 Time: 14:28 Bed 2 Private MD: Diagnosis: Cholelithiasis;Cholecystitis;Chest pain, unspecified;Constipation Presentation: 03/28 14:29 Presenting complaint: EMS states: Pt's home health nurse called the daughter and told jl7 her he was having chest pressure, the daughter called 911. Pt reported chest pressure and nausea to EMS upon arrival which have all resolved, no interventions, EKG showed paced rhythm. Transition of care: patient was not received from another setting of care. Onset of symptoms was March 28, 2019 at 13:00. Risk Assessment: Do you want to hurt yourself or someone else? Patient reports no desire to harm self or others. Initial Sepsis Screen: Does the patient meet any 2 criteria? No. Patient's initial sepsis screen is negative. Does the patient have a suspected source of infection? No. Patient's initial sepsis screen is negative. Care prior to arrival: 142/78 BP, 68 Paced, 100% RA. 14:29 Method Of Arrival: EMS: [email or web address] 7 14:29 Acuity: DAVID 2 jl Historical: - Allergies: 14:36 No Known Allergies; jl7 - Home Meds: 14:36 aspirin 81 mg Oral chew 1 tab once daily [Active]; Plavix 75 mg Oral tab 1 tab once jl7 daily [Active]; Fish Oil Oral daily [Active]; ergocalciferol (vitamin D2) 50,000 unit Oral cap once wkly [Active]; finasteride 5 mg Oral tab 1 tab once daily [Active]; simvastatin 10 mg Oral tab 1 tab once daily [Active]; sotalol 80 mg Oral tab 2 times per day [Active]; tamsulosin 0.4 mg Oral cp24 1 cap once daily [Active]; amlodipine 10 mg tab 1 tab once daily [Active]; - PMHx: 14:36 Atrial Fib; Dementia; Glaucoma; Hyperlipidemia; Hypertension; BPH; jl7 - PSHx: 14:36 pacemaker; jl7 - Immunization history:: Adult Immunizations unknown. - Social history:: Smoking status: Patient/guardian denies using tobacco. - Ebola Screening: : No symptoms or risks identified at this time. - Family history:: not pertinent. Screenin:17 Abuse screen: Denies threats or abuse. Denies injuries from another. Nutritional jl7 screening: No deficits noted. Tuberculosis screening: No symptoms or risk factors identified. Fall Risk IV access (20 points). Total Guzman Fall Scale indicates No Risk (0-24 pts). Assessment: 14:30 General: Appears in no apparent distress. uncomfortable, Behavior is cooperative, jl7 anxious. Pain: Denies pain. Pain does not radiate. Pain began Pt unable to answer when asked about his chest pain, pt denies chest discomfort/pain at this time. Neuro: Level of Consciousness is awake, alert, obeys commands, confused, Oriented to person, place. Cardiovascular: Heart tones present Patient's skin is warm and dry. Rhythm is A-V sequential pacer. Respiratory: Airway is patent Respiratory effort is even, unlabored, Respiratory pattern is regular, symmetrical, Breath sounds are clear bilaterally. GI: No signs and/or symptoms were reported involving the gastrointestinal system. : No signs and/or symptoms were reported regarding the genitourinary system. Derm: Skin is pink, warm \T\ dry. 15:34 Reassessment: Pt asking why he's here, pt does not recall having chest pain and denies jl7 chest pain at this time. ERD aware of BP and will be to bedside Patient denies pain at this time. 17:01 Reassessment: Patient appears in no apparent distress at this time. No changes from jl7 previously documented assessment. Patient and/or family updated on plan of care and expected duration. Pain level reassessed. Patient is alert, oriented x 3, equal unlabored respirations, skin warm/dry/pink. 18:06 Reassessment: Assisted patient back into bed after having large BM. Patient is back in ss bed on monitors and is great for care received thus far. 18:23 Reassessment: Patient appears in no apparent distress at this time. patient was able to rv move bowels after the dose of laxatives. appears to be more comfortable now. daughter came in to visit. updated on the results and plan of care, and agreed to keep the patient for further management. 19:10 Reassessment: Patient appears in no apparent distress at this time. Patient and/or aa1 family updated on plan of care and expected duration. Pain level reassessed. Awaiting beds assignment Patient denies pain at this time. Neuro: Level of Consciousness is awake, alert, obeys commands, confused, Oriented to person, place, Moves all extremities. Speech is normal. Cardiovascular: Denies chest pain, palpitations, shortness of breath, Heart tones S1 S2 present Rhythm is regular. Respiratory: Airway is patent Respiratory effort is even, unlabored, Respiratory pattern is regular, symmetrical. GI: No signs and/or symptoms were reported involving the gastrointestinal system. : No signs and/or symptoms were reported regarding the genitourinary system. EENT: No signs and/or symptoms were reported regarding the EENT system. Derm: Skin is intact, Skin is pink, warm \T\ dry. Musculoskeletal: Circulation, motion, and sensation intact. Capillary refill < 3 seconds. 19:46 Reassessment: Patient appears in no apparent distress at this time. No changes from aa1 previously documented assessment. Patient and/or family updated on plan of care and expected duration. Pain level reassessed. Attempted to call report to 4th floor; nurse will call back shortly. 20:18 Reassessment: Patient appears in no apparent distress at this time. No changes from aa1 previously documented assessment. Patient and/or family updated on plan of care and expected duration. Pain level reassessed. Report given to JESSICA Marroquin Patient denies pain at this time. Vital Signs: 14:36 BP 183 / 78; Pulse 61; Resp 19 S; Pulse Ox 100% on R/A; Pain 0/10; jl7 15:34 BP 190 / 78; Pulse 69; Resp 16 S; Pulse Ox 100% on R/A; Pain 0/10; jl7 17:01 BP 168 / 70; Pulse 70; Resp 16 S; Pulse Ox 100% on R/A; jl7 17:07 Temp 98.5(O); jl7 17:30 BP 172 / 65; Pulse 62; Resp 18; Pulse Ox 99% on R/A; rv 18:12 BP 157 / 87; Pulse 95; Resp 19; Pulse Ox 99% on R/A; rv 19:30 BP 153 / 65; Pulse 60; Resp 20; Temp 97.4; Pulse Ox 100% on R/A; Pain 0/10; aa1 20:00 BP 138 / 68; Pulse 60; Resp 16; Pulse Ox 99% on R/A; rv ED Course: 14:28 Patient arrived in ED. jl7 14:29 Harrison Uriostegui MD is Attending Physician. thong 14:32 Triage completed. jl7 14:36 Arm band placed on right wrist. jl7 14:38 Inserted saline lock: 20 gauge in right antecubital area, using aseptic technique. ss Blood collected. 14:40 Patient has correct armband on for positive identification. Placed in gown. Bed in low jl7 position. Call light in reach. Side rails up X2. classroom monitor on. Pulse ox on. NIBP on. 14:40 Patient maintains SpO2 saturation greater than 95% on room air. jl7 14:43 EKG done, by ob tech. reviewed by Harrison Uriostegui MD. [facility] 14:44 Padmini Grant, JESSICA is Primary Nurse. jl7 14:48 XRAY Chest (1 view) In Process Unspecified. EDMS 16:[address] via stretcher. sc 16:46 CT Abd/Pelvis - PO and IV Contrast In Process Unspecified. EDMS 17:05 Norm Brunner MD is Hospitalizing Provider. [facility] 19:44 No provider procedures requiring assistance completed. Patient admitted, IV remains in aa1 place. Administered Medications: 16:29 Drug: NS 0.9% 1000 ml Route: IV; Rate: 1 bolus; Site: right antecubital; rv 18:00 Follow up: Response: No adverse reaction; IV Status: Completed infusion; IV Intake: jl7 1000ml 16:29 Drug: Pepcid 20 mg Route: IVP; Site: right antecubital; rv 17:05 Follow up: Response: No adverse reaction jl7 17:26 Drug: Lactulose 30 grams Volume: 45 ml; Route: PO; rv 18:45 Follow up: Response: No adverse reaction jl7 17:26 Drug: Zosyn 3.375 grams Route: IVPB; Infused Over: 60 mins; Site: right antecubital; rv 18:00 Follow up: Response: No adverse reaction; IV Status: Completed infusion jl7 17:26 Drug: Aspirin 162 mg Route: PO; rv 18:45 Follow up: Response: No adverse reaction jl7 17: Drug: Dulcolax Suppository 10 mg Route: SD; rv 18:45 Follow up: Response: No adverse reaction jl7 Intake: 18:00 IV: 1000ml; Total: 1000ml. jl7 Outcome: 17:07 Decision to Hospitalize by Provider. thong 20:25 Admitted to Tele accompanied by tech, via stretcher, room 420, with chart, Report aa1 called to Damián Marroquin RN 20:25 Condition: stable 20:25 Instructed on the need for admit. 20:25 Patient left the ED. aa1 Signatures: Dispatcher [employer] EDAddie Andre, RN RN aa1 Harrison Uriostegui MD MD cha Smirch, Shelby, JESSICA RN [place] Rachel Jahala, RN RN jl7 Angy Toure 3 Danis Schofield RN RN rv
[2019-03-28] MEDS ORDERED: PIPER/TAZO/NS 3.375gm 3.375 GM/100 ML BAG ONE (17:09)
[2019-03-28] MEDS ORDERED: ASPIRIN EC 81 MG TAB PO ONE (17:09)
[2019-03-28] MEDS ORDERED: BISACODYL 10 MG RECTAL SUPP ONE (17:09)
[2019-03-28] MEDS ORDERED: LACTULOSE 20 GM/30 ML UCUP ONE (17:10)
--- NOTE | 2019-03-28 17:10 | EKG ---
Test Date: 2019-03-28 Test Time: 14:27:48 Pattern Clerk: VINCE MEASUREMENT RESULTS: Intervals: Rate: 70 [place]: QRSD: 154 QT: 550 QTc: 594 [place]: P: [place]: QRS: 263 T: 41 INTERPRETIVE STATEMENTS: AV dual-paced rhythm Abnormal ECG Compared to ECG 03/01/2019 07:35:46 No significant changes Electronically Signed On 03-28-19 17:09:30 CDT by Breezy Larios
[2019-03-28] MEDS ORDERED: MORPHINE 2 MG/ML SYR IV PRN (19:11)
[2019-03-28] MEDS ORDERED: ACETAMINOPHEN 500 MG TAB PO PRN (19:11)
[2019-03-28] MEDS ORDERED: ONDANSETRON 4 MG/2 ML VIAL IV PRN (19:11)
[2019-03-28] MEDS ORDERED: NA CHLORIDE 0.9% 1,000 ML IV SCH (20:00)
--- NOTE | 2019-03-28 20:26 | EDPHYS ---
Physician Documentation [facility] Name: Brigido Hargrove Age: 88 yrs Sex: Male : 1930 Arrival Date: 03/28/2019 Time: 14:28 Bed 2 Private MD: ED Physician Harrison Uriostegui HPI: 03/28 16:09 This 88 yrs old Male presents to ER via EMS with complaints of Chest Pressure.thong 16:09 The patient or guardian reports chest pain that is located primarily in the anterior thong chest wall. Onset: just prior to arrival. The pain does not radiate. Associated signs and symptoms: The patient has no apparent associated signs or symptoms. The chest pain is described as aching. Modifying factors: The symptoms are alleviated by nothing. the symptoms are aggravated by nothing. Severity of pain: At its worst the pain was mild in the emergency department the pain is unchanged. The patient has not experienced similar symptoms in the past. Historical: - Allergies: 14:36 No Known Allergies; jl7 - Home Meds: 14:36 aspirin 81 mg Oral chew 1 tab once daily [Active]; Plavix 75 mg Oral tab 1 tab once jl7 daily [Active]; Fish Oil Oral daily [Active]; ergocalciferol (vitamin D2) 50,000 unit Oral cap once wkly [Active]; finasteride 5 mg Oral tab 1 tab once daily [Active]; simvastatin 10 mg Oral tab 1 tab once daily [Active]; sotalol 80 mg Oral tab 2 times per day [Active]; tamsulosin 0.4 mg Oral cp24 1 cap once daily [Active]; amlodipine 10 mg tab 1 tab once daily [Active]; - PMHx: 14:36 Atrial Fib; Dementia; Glaucoma; Hyperlipidemia; Hypertension; BPH; jl7 - PSHx: 14:36 pacemaker; jl7 - Immunization history:: Adult Immunizations unknown. - Social history:: Smoking status: Patient/guardian denies using tobacco. - Ebola Screening: : No symptoms or risks identified at this time. - Family history:: not pertinent. ROS: 16:09 Constitutional: Negative for fever, chills, and weight loss, Eyes: Negative for injury, thong pain, redness, and discharge, ENT: Negative for injury, pain, and discharge, Neck: Negative for injury, pain, and swelling, Cardiovascular: Negative for chest pain, palpitations, and edema, Respiratory: Negative for shortness of breath, cough, wheezing, and pleuritic chest pain, Abdomen/GI: Negative for abdominal pain, nausea, vomiting, diarrhea, and constipation, Back: Negative for injury and pain, : Negative for injury, bleeding, discharge, and swelling, MS/Extremity: Negative for injury and deformity, Skin: Negative for injury, rash, and discoloration, Neuro: Negative for headache, weakness, numbness, tingling, and seizure, Psych: Negative for depression, anxiety, suicide ideation, homicidal ideation, and hallucinations, Allergy/Immunology: Negative for hives, rash, and allergies, Endocrine: Negative for neck swelling, polydipsia, polyuria, polyphagia, and marked weight changes, Hematologic/Lymphatic: Negative for swollen nodes, abnormal bleeding, and unusual bruising. Exam: 16:11 Constitutional: This is a well developed, well nourished patient who is awake, alert, thong and in no acute distress. Head/Face: Normocephalic, atraumatic. Eyes: Pupils equal round and reactive to light, extra-ocular motions intact. Lids and lashes normal. Conjunctiva and sclera are non-icteric and not injected. Cornea within normal limits. Periorbital areas with no swelling, redness, or edema. ENT: Nares patent. No nasal discharge, no septal abnormalities noted. Tympanic membranes are normal and external auditory canals are clear. Oropharynx with no redness, swelling, or masses, exudates, or evidence of obstruction, uvula midline. Mucous membranes moist. Neck: Trachea midline, no thyromegaly or masses palpated, and no cervical lymphadenopathy. Supple, full range of motion without nuchal rigidity, or vertebral point tenderness. No Meningismus. Chest/axilla: Normal chest wall appearance and motion. Nontender with no deformity. No lesions are appreciated. Cardiovascular: Regular rate and rhythm with a normal S1 and S2. No gallops, murmurs, or rubs. Normal PMI, no JVD. No pulse deficits. Respiratory: Lungs have equal breath sounds bilaterally, clear to auscultation and percussion. No rales, rhonchi or wheezes noted. No increased work of breathing, no retractions or nasal flaring. Abdomen/GI: Soft, non-tender, with normal bowel sounds. No distension or tympany. No guarding or rebound. No evidence of tenderness throughout. Back: No spinal tenderness. No costovertebral tenderness. Full range of motion. Skin: Warm, dry with normal turgor. Normal color with no rashes, no lesions, and no evidence of cellulitis. MS/ Extremity: Pulses equal, no cyanosis. Neurovascular intact. Full, normal range of motion. Psych: Awake, alert, with orientation to person, place and time. Behavior, mood, and affect are within normal limits. 16:11 Neuro: Orientation: to person, Not oriented to place, time, situation, Mentation: is normal, appropriate for stated age, Memory: immediate memory is impaired, Cranial nerves: grossly normal, is grossly normal based on the patient's age, no acute changes, Cerebellar function: is grossly normal based on the patient's age, no acute changes, Motor: is normal, is grossly normal based on the patient's age, no acute changes, moves all fours, Gait: not tested. seizure activity, is not displayed by the patient. Vital Signs: 14:36 BP 183 / 78; Pulse 61; Resp 19 S; Pulse Ox 100% on R/A; Pain 0/10; jl7 15:34 BP 190 / 78; Pulse 69; Resp 16 S; Pulse Ox 100% on R/A; Pain 0/10; jl7 17:01 BP 168 / 70; Pulse 70; Resp 16 S; Pulse Ox 100% on R/A; jl7 17:07 Temp 98.5(O); jl7 17:30 BP 172 / 65; Pulse 62; Resp 18; Pulse Ox 99% on R/A; rv 18:12 BP 157 / 87; Pulse 95; Resp 19; Pulse Ox 99% on R/A; rv 19:30 BP 153 / 65; Pulse 60; Resp 20; Temp 97.4; Pulse Ox 100% on R/A; Pain 0/10; aa1 20:00 BP 138 / 68; Pulse 60; Resp 16; Pulse Ox 99% on R/A; rv MDM: 14:30 Patient medically screened. [facility] 16:12 Data reviewed: vital signs, nurses notes, lab test result(s), EKG, radiologic studies, [facility] CT scan, plain films. 03/28 14:32 Order name: Basic Metabolic Panel; Complete Time: 16:06 [facility] 03/28 14:32 Order name: CBC with Diff; Complete Time: 16:06 thong 03/28 14:32 Order name: LFT's; Complete Time: 16:06 thong 03/28 14:32 Order name: Magnesium; Complete Time: 16:06 thong 03/28 14:32 Order name: NT PRO-BNP; Complete Time: 16:06 thong 03/28 14:32 Order name: PT-INR; Complete Time: 16:06 thong 03/28 14:32 Order name: Troponin (emerg Dept Use Only); Complete Time: 16:06 thong 03/28 14:32 Order name: Lipase; Complete Time: 16:06 thong 03/28 14:32 Order name: Urine Culture [facility] 03/28 15:15 Order name: Urine Dipstick--Ancillary (enter results); Complete Time: 16:06 03/28 17:03 Order name: Lipase; Complete Time: 17:49 03/28 19:15 Order name: Lipase [facility] 03/28 19:15 Order name: CBC with Automated Diff [facility] 03/28 19:15 Order name: CBC with Automated Diff [facility] 03/28 14:32 Order name: XRAY Chest (1 view); Complete Time: 16:06 [facility] 03/28 14:32 Order name: EKG; Complete Time: 14:33 [facility] 03/28 16:08 Order name: CT Abd/Pelvis - PO and IV Contrast; Complete Time: 17:49 [facility] 03/28 19:15 Order name: CONS Pharmacy Consult [facility] 03/28 19:15 Order name: CONS Physician Consult [facility] 03/28 19:15 Order name: NPO [facility] 03/28 19:16 Order name: Comprehensive Metabolic Panel [facility] 03/28 19:16 Order name: Comprehensive Metabolic Panel [facility] 03/28 19:16 Order name: Lipid Profile [facility] 03/28 19:16 Order name: Lipid Profile [facility] 03/28 14:32 Order name: Cardiac monitoring; Complete Time: 14:58 thong 03/28 14:32 Order name: EKG - Nurse/Tech; Complete Time: 14:59 [facility] 03/28 14:32 Order name: IV Saline Lock; Complete Time: 14:59 thong 03/28 14:32 Order name: Labs collected and sent; Complete Time: 14:58 [facility] 10/08 14:32 Order name: O2 Per Protocol; Complete Time: 14:58 [facility] 03/28 14:32 Order name: O2 Sat Monitoring; Complete Time: 14:58 [facility] 03/28 14:32 Order name: Urine Dipstick-Ancillary (obtain specimen); Complete Time: 15:12 [facility] Administered Medications: 16:29 Drug: NS 0.9% 1000 ml Route: IV; Rate: 1 bolus; Site: right antecubital; rv 18:00 Follow up: Response: No adverse reaction; IV Status: Completed infusion; IV Intake: jl7 1000ml 16:29 Drug: Pepcid 20 mg Route: IVP; Site: right antecubital; rv 17:05 Follow up: Response: No adverse reaction jl7 17:26 Drug: Lactulose 30 grams Volume: 45 ml; Route: PO; rv 18:45 Follow up: Response: No adverse reaction jl7 17:26 Drug: Zosyn 3.375 grams Route: IVPB; Infused Over: 60 mins; Site: right antecubital; rv 18:00 Follow up: Response: No adverse reaction; IV Status: Completed infusion jl7 17:26 Drug: Aspirin 162 mg Route: PO; rv 18:45 Follow up: Response: No adverse reaction jl7 17:27 Drug: Dulcolax Suppository 10 mg Route: WI; rv 18:45 Follow up: Response: No adverse reaction jl7 Disposition: 03/28/19 17:07 Hospitalization ordered by Norm Brunner for Inpatient Admission. Preliminary diagnosis are Cholelithiasis, Cholecystitis, Chest pain, unspecified, Constipation. - Bed requested for Telemetry/MedSurg (Inpatient). - Status is Inpatient Admission. aa1 - Condition is Fair. - Problem is new. - Symptoms have improved. UTI on Admission? No Signatures: Dispatcher [employer] EDMS Addie Felton RN RN aa1 Harrison Uriostegui MD MD cha Garcia, Cindy RN RN Padmini Garner RN RN jl7 Danis Schofield RN RN rv Corrections: (The following items were deleted from the chart) 17:16 17:07 Hospitalization Ordered by Norm Brunner MD for Inpatient Admission. Preliminary [facility] diagnosis is Cholelithiasis; Cholecystitis; Chest pain, unspecified. Bed requested for Telemetry/MedSurg (Inpatient). Status is Inpatient Admission. Condition is Fair. Problem is new. Symptoms have improved. UTI on Admission? No. thong 19:35 17:16 03/28/2019 17:07 Hospitalization Ordered by Norm Brunner MD for Inpatient cg Admission. Preliminary diagnosis is Cholelithiasis; Cholecystitis; Chest pain, unspecified; Constipation. Bed requested for Telemetry/MedSurg (Inpatient). Status is Inpatient Admission. Condition is Fair. Problem is new. Symptoms have improved. UTI on Admission? No. [facility] 20:25 19:35 03/28/2019 17:07 Hospitalization Ordered by Norm Brunner MD for Inpatient aa1 Admission. Preliminary diagnosis is Cholelithiasis; Cholecystitis; Chest pain, unspecified; Constipation. Bed requested for Telemetry/MedSurg (Inpatient). Status is Inpatient Admission. Condition is Fair. Problem is new. Symptoms have improved. UTI on Admission? No. cg
--- NOTE | 2019-03-28 21:26 | P.CNS ---
Date of Consult: 03/28/19 PC: I was asked see this patient in regards to abdominal pain. HPC: Patient is up on the floor at the current time. He is awake alert, not complaining of any discomfort at this time. Says he is brought in earlier but is not sure what. PMH: Patient is in the hospital here approximately 1 month ago with a several episode. At that time it was elected to treat him conservatively. SOC: No known allergy SYS REVIEW: No change since his last visit O/E awake alert comfortable at the moment HEENT: Not jaundice Chest: Chest movement equal bilaterally ABD: Soft nontender no guarding or rebound LOCO: Intact DATA: CT scan shows edema around the gallbladder IMPRESSION: Cholecystitis PLAN: The patient is admitted at this time, will start him on some IV antibiotics. I will discuss with the family in the morning in regards to possible surgery. He would obviously be high risk but this is his 2nd admission in less than a month.
[2019-03-28 22:27] VITALS: BMI 24.0
[2019-03-29 04:45] LABS: Absolute Lymphocytes (CBC) 2.6 K/uL (0.7-4.9); Basophils % 0.4 % (0-1.3); Hematocrit 31.4 % (39.6-49.0); Lymphocytes % 32.7 % (15.3-44.8); MPV 9.1 fL (7.6-11.3); RBC Red Blood Cell Count 3.34 M/uL (4.33-5.43)
[2019-03-29 05:10] LABS: Albumin 3.3 g/dL (3.4-5.0); Bilirubin Total 0.9 mg/dL (0.2-1.0); Protein, Total 6.8 g/dL (6.4-8.2)
--- NOTE | 2019-03-29 07:59 | P.HP ---
Certification for Inpatient Patient admitted to: Inpatient With expected LOS: >2 Midnights Patient will require the following post-hospital care: None Practitioner: I am a practitioner with admitting privileges, knowledge of patient current condition, hospital course, and medical plan of care. Services: Services provided to patient in accordance with Admission requirements found in Title 42 Section 412.3 of the Code of Federal Regulations Patient History Date of Service: 03/28/19 Reason for admission: Abdominal/chest pain History of Present Illness: Patient is an 88-year-old gentleman who came to the hospital with abdominal discomfort and chest pressure. In the emergency room, he told staff that the pain was mainly anterior to the chest wall. However, when I saw him if he said his symptoms were completely resolved. He has dementia and is not a really great historian. His lipase was found to be elevated. He was recently in the hospital with elevated LFTs and at that time imaging studies revealed concern for cholecystitis. Patient was conservatively managed and discharged with outpatient follow-up. Patient had been doing well since his discharge until this chest pain episode. Currently, he is feeling much better with no complaints. He does not really remember why he came into the hospital. He is not really sure more about his elevated liver function testing in the recent past. And he's never been told that he has pancreatitis. He will be admitted for further evaluation. Allergies No Known Allergies Allergy (Verified 02/28/19 22:39) Home Medications: Finasteride 5 mg PO DAILY 08/31/18 Simvastatin 10 mg PO BEDTIME 08/31/18 Tamsulosin [Flomax*] 0.4 mg PO BEDTIME 08/31/18 Aspirin Chewable [Aspirin Chewable*] 1 tab PO DAILY 02/28/19 Clopidogrel Bisulfate [Plavix*] 75 mg PO DAILY 02/28/19 Docosahexanoic AC/Epa [Fish Oil 1,000 MG*] 1 cap PO DAILY 02/28/19 Ensure Enlive 1 can PO BID 02/28/19 Ergocalciferol (Vitamin D2) [Drisdol] 50,000 unit PO SEECOM 02/28/19 Ointment Base No.104 [Hydrophilic Ointment Base] 1 loren TOP BID 02/28/19 Sotalol HCl [Betapace*] 1 tab PO BID 02/28/19 Amlodipine [Norvasc*] 10 mg PO DAILY 30 Days #30 tab 03/03/19 - Past Medical/Surgical History Has patient received pneumonia vaccine in the past: Yes Diabetic: No -: HTN -: hyperlipidemia -: Afib -: Dementia -: BPH -: pacemaker insertion - Family History Father Medical History: Heart disease, Hypertension - Social History Smoking Status: Never smoker Alcohol use: No CD- Drugs: No Caffeine use: Yes Place of Residence: Home Review of Systems 10-point ROS is otherwise unremarkable Physical Examination - Vital Signs Temperature: 97.4 F Blood Pressure: 170/82 Pulse: 70 Respirations: 16 Pulse Ox (%): 98 - Physical Exam General: Alert, In no apparent distress, Oriented x2 HEENT: Atraumatic, PERRLA, Mucous membr. moist/pink, EOMI, Sclerae nonicteric Neck: Supple, 2+ carotid pulse no bruit, No LAD, Without JVD or thyroid abnormality Respiratory: Clear to auscultation bilaterally, Normal air movement Cardiovascular: Regular rate/rhythm, Normal S1 S2, No murmurs Gastrointestinal: Normal bowel sounds, Soft and benign, Non-distended, No tenderness Musculoskeletal: No clubbing, No swelling, No tenderness Integumentary: No rashes Neurological: Normal speech, Normal strength at 5/5 x4 extr, Normal tone, Sensation intact, Cranial nerves 3-12 intact, Normal affect Lymphatics: No axilla or inguinal lymphadenopathy - Studies Laboratory Data (last 24 hrs) 03/28/19 17:15: Lipase [id number] H 03/28/19 14:32: PT 12.0, INR 1.02 03/28/19 14:32: WBC 12.7 H, Hgb 11.6 L, Hct 33.4 L, Plt Count 208 03/28/19 14:32: Sodium 142, Potassium 4.2, BUN 18, Creatinine 1.03, Glucose 99, Magnesium 2.3, Total Bilirubin 1.2 H, AST 49 H, ALT 51, Alkaline Phosphatase 108 , Lipase > 77376 H Assessment & Plan - Problems (Diagnosis) (1) Pancreatitis Current Visit: Yes Status: Acute (2) Cholecystitis, chronic Current Visit: No Status: Acute (3) Chest pain, rule out acute myocardial infarction Current Visit: No Status: Acute (4) Atrial fibrillation Current Visit: No Status: Acute (5) Dementia Current Visit: No Status: Chronic Qualifiers: Dementia type: Alzheimer's disease (6) HTN (hypertension) Current Visit: No Status: Chronic Qualifiers: Hypertension type: essential hypertension (7) Hyperlipidemia Current Visit: No Status: Chronic Qualifiers: Hyperlipidemia type: pure hypercholesterolemia Qualified Code(s): E78.00 - Pure hypercholesterolemia, unspecified; E78.0 - Pure hypercholesterolemia - Plan Plan: 1. IV hydration 2. Pain control 3. Echocardiogram and serial troponins 4. IV antibiotics 5. GI and surgery consultation-unable to do MRCP and may need ERCP 6. If any intervention is needed may need to get cardiac clearance 7. Continue sotalol for AFib-avoid quinolones for treatment of cholecystitis 8. GI and DVT prophylaxis Discharge Plan: Home Plan to discharge in: Greater than 2 days - Advance Directives Does patient have a Living Will: No Does patient have a Durable POA for Healthcare: Yes - Code Status/Comfort Care Code Status Assessed: Yes Code Status: Full Code Critical Care: No Time Spent Managing PTS Care (In Minutes): 45
--- NOTE | 2019-03-29 08:34 | P.PN ---
Subjective Date of Service: 03/29/19 Patient appears to be doing well with no complaints. His liver function testing has increased this morning. GI consultation and surgery consultation are pending. In light of the fact that he may need ERCP will go ahead and put in a cardiology consultation as well for cardiac clearance. Patient is completely asymptomatic. He does have numerous risk factors. May be more beneficial for conservative management. Will discuss this case with consultants. Review of Systems No complaints but patient has dementia Physical Examination - Vital Signs Temperature: 97.4 F Blood Pressure: 170/82 Pulse: 70 Respirations: 16 Pulse Ox (%): 98 - Physical Exam General: Alert, In no apparent distress, Oriented x2 Respiratory: Clear to auscultation bilaterally, Normal air movement Cardiovascular: Regular rate/rhythm, Normal S1 S2, Systolic murmur Gastrointestinal: Normal bowel sounds, Soft and benign, Non-distended, No tenderness Musculoskeletal: No clubbing, No swelling Neurological: Normal strength at 5/5 x4 extr, Normal tone, Sensation intact, Cranial nerves 3-12 intact - Studies Laboratory Data (last 24 hrs) 03/28/19 17:15: Lipase [id number] H 03/28/19 14:32: PT 12.0, INR 1.02 03/28/19 14:32: WBC 12.7 H, Hgb 11.6 L, Hct 33.4 L, Plt Count 208 03/28/19 14:32: Sodium 142, Potassium 4.2, BUN 18, Creatinine 1.03, Glucose 99, Magnesium 2.3, Total Bilirubin 1.2 H, AST 49 H, ALT 51, Alkaline Phosphatase 108 , Lipase > 28727 H Assessment & Plan - Problems (Diagnosis) (1) Pancreatitis Current Visit: Yes Status: Acute Qualifiers: Chronicity: acute (2) Cholecystitis, chronic Current Visit: No Status: Acute (3) Chest pain, rule out acute myocardial infarction Current Visit: No Status: Acute (4) Atrial fibrillation Current Visit: No Status: Acute (5) Dementia Current Visit: No Status: Chronic Qualifiers: Dementia type: Alzheimer's disease (6) HTN (hypertension) Current Visit: No Status: Chronic Qualifiers: Hypertension type: essential hypertension Qualified Code(s): I10 - Essential (primary) hypertension (7) Hyperlipidemia Current Visit: No Status: Chronic Qualifiers: Hyperlipidemia type: pure hypercholesterolemia Qualified Code(s): E78.00 - Pure hypercholesterolemia, unspecified; E78.0 - Pure hypercholesterolemia - Plan Plan: Continue with current plan of care at this time as mentioned below 1. Gentle IV hydration 2. Continue would pain control; currently, patient denying any pain 3. Echocardiogram and serial troponins; patient will need cardiac clearance if any intervention is necessary 4. Continue with IV antibiotics 5. GI and surgery consultation-unable to do MRCP and may need ERCP 6. Continue sotalol for AFib-avoid quinolones for treatment of cholecystitis 7. Strict blood pressure control-restarted home medications 8. GI and DVT prophylaxis Discharge Plan: Home Plan to discharge in: Greater than 2 days - Advance Directives Does patient have a Living Will: No Does patient have a Durable POA for Healthcare: Yes - Code Status/Comfort Care Code Status: Full Code Critical Care: No
[2019-03-29] MEDS: NA CHLORIDE 0.9% 1,000 ML IV SCH ×2 (10:11→21:20)
[2019-03-29] MEDS: SOTALOL HCL 80 MG TAB PO SCH ×2 (10:12→19:56)
[2019-03-29] MEDS: FINASTERIDE 5 MG TAB PO SCH (10:12)
[2019-03-29] MEDS: AMLODIPINE 10 MG TAB PO SCH (10:12)
[2019-03-29] MEDS: PIPER/TAZO/NS 3.375gm 3.375 GM/100 ML BAG IVPB SCH ×2 (10:16→16:14)
--- NOTE | 2019-03-29 16:03 | P.PN ---
Date of Service: 03/29/19 S: Patient is no specific complaints today. Says he feels pretty good. Asking for food. O: Abdomen remains soft, minimal tenderness A: Surgically stable P: This apparently has some rising liver enzymes. He is not anxious to have any surgery diversions daughter urine to give permission. He may recur and a from and ERCP. Still awaiting GI.
[2019-03-29] MEDS: TAMSULOSIN 0.4 MG SR CAP PO SCH (19:56)
[2019-03-30] MEDS: PIPER/TAZO/NS 3.375gm 3.375 GM/100 ML BAG IVPB SCH ×3 (00:44→17:46)
[2019-03-30 05:03] LABS: Absolute Lymphocytes (CBC) 2.8 K/uL (0.7-4.9); Basophils % 0.7 % (0-1.3); Lymphocytes % 29.4 % (15.3-44.8); MPV 8.9 fL (7.6-11.3); RBC Red Blood Cell Count 3.31 M/uL (4.33-5.43)
[2019-03-30 05:29] LABS: Albumin 3.2 g/dL (3.4-5.0); Bilirubin Total 1.1 mg/dL (0.2-1.0); Potassium 3.9 mmol/L (3.5-5.1); Protein, Total 6.7 g/dL (6.4-8.2)
[2019-03-30] MEDS: NA CHLORIDE 0.9% 1,000 ML IV SCH (06:41)
[2019-03-30] MEDS: AMLODIPINE 10 MG TAB PO SCH (08:13)
[2019-03-30] MEDS: FINASTERIDE 5 MG TAB PO SCH (08:13)
[2019-03-30] MEDS: SOTALOL HCL 80 MG TAB PO SCH ×2 (08:13→22:55)
--- NOTE | 2019-03-30 08:17 | ECHO ---
HEIGHT: 5 ft 11 in WEIGHT: 172 lb 6.4 oz DATE OF STUDY: 03/29/[address]: Johann Kelsey MD 2-DIMENSIONAL: YES M.MODE: YES DOPPLER: YES COLOR FLOW: YES TDS: YES PORTABLE: NO DEFINITY: NO BUBBLE STUDY: NO DIAGNOSIS: CHEST PAIN/ TULE OUT ACUTE CORONARY SYNDROME CARDIAC HISTORY: CATHERIZATION: NO SURGERY: NO PROSTHETIC VALVE: NO PACEMAKER: YES MEASUREMENTS (cm) DIASTOLIC (NORMALS) SYSTOLIC (NORMALS) IVSd 1.0 (0.6-1.2) LA Diam 3.1 (1.9-4.0) LVEF 52% LVIDd 3.3 (3.5-5.7) LVIDs 2.4 (2.0-3.5) %FS 26% LVPWd 1.2 (0.6-1.2) Ao Diam 2.9 (2.0-3.7) 2 DIMENSIONAL ASSESSMENT: RIGHT ATRIUM: DILATED LEFT ATRIUM: DILATED RIGHT VENTRICLE: PACEMAKER CATHETER LEFT VENTRICLE: NORMAL TRICUSPID VALVE: NORMAL MITRAL VALVE: NORMAL PULMONIC VALVE: NORMAL AORTIC VALVE: SCLEROSIS PERICARDIAL EFFUSION: NONE AORTIC ROOT: NORMAL LEFT VENTRICULAR WALL MOTION: DOPPLER/COLOR FLOW: MILD AORTIC, MITRAL AND TRICUSPID REGURGITATION. NORMAL RIGHT VENTRICULAR SYSTOLIC PRESSURE. NO AORTIC STENOSIS. COMMENTS: NORMAL LEFT VENTRICULAR EJECTION FRACTION. DILATED LEFT AND RIGHT ATRIUM. AORTIC SCLEROSIS WITH NO AORTIC STENOSIS. MILD AORTIC, MITRAL AND TRICUSPID REGURGITATION. PACEMAKER CATHETER IN RIGHT VENTRICLE. TECHNOLOGIST: APPLE ARITA
[2019-03-30] MEDS ORDERED: LIDOCAINE 2% MPF 5 ML VIAL ONE (15:07)
[2019-03-30] MEDS ORDERED: PROPOFOL 200 MG/20 ML VIAL IV ONE (15:07)
[2019-03-30] MEDS ORDERED: ROCURONIUM 50 MG/5 ML VIAL IV ONE (15:07)
[2019-03-30] MEDS ORDERED: ONDANSETRON 4 MG/2 ML VIAL ONE (15:07)
[2019-03-30] MEDS ORDERED: Ringers Lactate 1,000 ML IV ONE (15:13)
[2019-03-30] MEDS ORDERED: FENTANYL CITR 100 MCG/2 ML ONE (15:44)
[2019-03-30] MEDS ORDERED: LABETALOL 20 MG/4ML SYRINGE IV ONE (16:14)
[2019-03-30] MEDS ORDERED: NS 0.9% VIAL 10 ML ONE (16:15)
[2019-03-30] MEDS ORDERED: Phenylephrine HCl 10 MG/ML 1 ML VIAL ONE (16:15)
[2019-03-30] MEDS ORDERED: GLYCOPYRROLATE 0.2 MG/ML SYR ONE (16:37)
[2019-03-30] MEDS ORDERED: NEOSTIGMINE 1 MG/ML -10 ML VIAL ONE (16:38)
--- NOTE | 2019-03-30 16:51 | P.OP ---
Preoperative diagnosis: Cholecystitis, biliary colic Postoperative diagnosis: The same Primary procedure: Laparoscopic cholecystectomy Secondary procedure: Cholangiogram Anesthesia: General Estimated blood loss: Less than 10 cc Specimen: 1 gallbladder and contents Operative Technique: The patient was brought to the operating room placed supine on the table. After the induction of adequate general endotracheal anesthesia, the area of the abdomen is prepped with a DuraPrep solution, and draped in the usual aseptic manner. A subumbilical incision was made. This brought down through the skin and subcutaneous tissue. The Visiport was used to enter the peritoneal cavity and created pneumoperitoneum to approximately 12 mm of mercury. Under direct vision a 5 mm trocar was placed in the upper midline, and 2 other 5 mm trocars on the right lateral side. The patient's head was then elevated and rolled towards the buggy operator's side. We could see chronically inflamed gallbladder with marked thickened old adhesions of omentum adherent to its serosal surface. These were taken down using blunt sharp dissection. Electro cautery was used for some of the more vascular attachments. A grasper was placed on the fundus of the gallbladder. Another 1 was placed down by Emy's pouch. Applying lateral traction we were able to dissect and expose the cystic duct and artery. We obtained a critical view. The artery was dealt with 1st. It was clipped and divided in the usual manner. A clip was then placed between the gallbladder and the cystic duct. An opening was made into the cystic duct. We attempted then to pass the cholangiocath into the cystic duct. Having successfully done so, a cholangiogram was obtained. It showed good flow of contrast into the duodenum. There was no resistance noted when injecting through the catheter. The catheter was then passed after having deflated the retaining balloon down into the duodenum and it went quite easily. Clips were now placed on the distal portion of the cystic duct. The cystic duct was then divided. The gallbladder was now dissected free from the liver bed, placed into an Endo-Catch, and brought out through the umbilical trocar site. The gallbladder fossa was inspected to ensure adequate hemostasis. It was irrigated with a saline solution and the irrigant aspirated from the peritoneal cavity. 0.25% Marcaine was aerosolized into the right upper quadrant and the gallbladder fossa. The umbilical trocar site was now approximated with an Endo Close and an absorbable sutures. The pneumoperitoneum was then collapsed, the suture tied, and kaylin applied to the skin. A further 0.25% Marcaine was injected around are incision sites. At the end of the procedure the patient was in a stable condition when sent to the recovery room. Needle sponge instrument count were correct. 1 specimen was sent for histopathology.y Complications: None Transferred to: Recovery Room Condition: Good
[2019-03-30] MEDS ORDERED: HYDROCODONE/APAP 7.5/325 MG TAB PO PRN (17:00)
[2019-03-30 17:27] VITALS: O2SAT 98
--- NOTE | 2019-03-30 17:39 | RAD REPORT ---
EXAM DESCRIPTION: RAD - Cholangiogram Oper-Xray Or - 03/30/2019 5:13 pm FINDINGS: A single image from an intraoperative cholangiogram submitted. No filling defects seen. No suspicious or unexpected finding. Fluoro time was 0.1 minutes.
[2019-03-30] MEDS: TAMSULOSIN 0.4 MG SR CAP PO SCH (22:55)
[2019-03-31] MEDS: PIPER/TAZO/NS 3.375gm 3.375 GM/100 ML BAG IVPB SCH ×3 (02:05→17:30)
[2019-03-31] MEDS: SOTALOL HCL 80 MG TAB PO SCH ×2 (09:40→20:14)
[2019-03-31] MEDS: AMLODIPINE 10 MG TAB PO SCH (09:41)
[2019-03-31] MEDS: FINASTERIDE 5 MG TAB PO SCH (09:43)
--- NOTE | 2019-03-31 12:06 | P.PN ---
Subjective Date of Service: 03/30/19 Chief Complaint: Abdominal/chest pain Patient seen and examined at bedside. No family at bedside. Chart reviewed and case discussed with nursing staff. Review of Systems 10-point ROS is otherwise unremarkable Physical Examination - Vital Signs Temperature: 97.6 F Blood Pressure: 124/59 Pulse: 62 Respirations: 16 Pulse Ox (%): 96 - Physical Exam General: Alert, In no apparent distress, Oriented x2 HEENT: Atraumatic, PERRLA, EOMI Neck: Supple, JVD not distended Respiratory: Clear to auscultation bilaterally, Normal air movement Cardiovascular: Regular rate/rhythm, Normal S1 S2 Gastrointestinal: Normal bowel sounds, Tenderness Musculoskeletal: No tenderness Integumentary: No rashes Neurological: Normal speech, Normal tone, Normal affect Lymphatics: No axilla or inguinal lymphadenopathy - Studies Microbiology Data (last 24 hrs): 03/28/19 15:10 Clean Catch Urine [place] Count - Final <10,000 CFU/ML. 03/28/19 15:10 Clean Catch Urine - Final MIXED LINDA. Assessment And Plan - Plan Pancreatitis Continue IV hydration Pain control-patient currently denying any pain Cholecystitis, chronic GI consultation, recommendations appreciated Patient pending cholecystectomy general surgery today Continue to keep NPO Continue IV antibiotics Chest pain, rule out acute myocardial infarction Resolved, denies any chest pain at this time Atrial fibrillation Stable, Continue sotalol Dementia Stable, will continue home medications HTN (hypertension) Stable, continue home medications Hyperlipidemia Stable, continue home medications DVT prophylaxis: No chemical anticoagulation due to surgery GI prophylaxis: Protonix Diet: NPO Disposition: Pending cholecystectomy today
--- NOTE | 2019-03-31 12:09 | P.PN ---
Subjective Date of Service: 03/31/19 Chief Complaint: Abdominal/chest pain Subjective: Improving Patient seen and examined at bedside. daughter at bedside. Chart reviewed and case discussed with nursing staff. S/p lap minnie, doing well Tolerating clear liquids, would like to try something more Denies any pain or any other complaints at this time. No acute events overnight Review of Systems 10-point ROS is otherwise unremarkable Physical Examination - Vital Signs Temperature: 97.6 F Blood Pressure: 124/59 Pulse: 62 Respirations: 16 Pulse Ox (%): 96 - Physical Exam General: Alert, In no apparent distress, Oriented x3 HEENT: Atraumatic, PERRLA, EOMI Neck: Supple, JVD not distended Respiratory: Clear to auscultation bilaterally, Normal air movement Cardiovascular: Regular rate/rhythm, Normal S1 S2 Gastrointestinal: Normal bowel sounds, No tenderness, Other (Incision site with small amounts of bleeding, otherwise no evidence of infection) Musculoskeletal: No tenderness Integumentary: No rashes Neurological: Normal speech, Normal tone, Normal affect Lymphatics: No axilla or inguinal lymphadenopathy - Studies Microbiology Data (last 24 hrs): 03/28/19 15:10 Clean Catch Urine [place] Count - Final <10,000 CFU/ML. 03/28/19 15:10 Clean Catch Urine - Final MIXED LINDA. Assessment And Plan - Plan Pancreatitis - lipase now normalized; pain resolved Continue IV hydration Pain control-patient currently denying any pain It seems that patient may have passed gallbladder stone Cholecystitis, chronic GI consultation, recommendations appreciated Patient status post cholecystectomy, POD#1 Advance diet to full liquid Continue IV antibiotics Chest pain, rule out acute myocardial infarction Resolved, denies any chest pain at this time Atrial fibrillation Stable, Continue sotalol Dementia Stable, will continue home medications HTN (hypertension) Stable, continue home medications Hyperlipidemia Stable, continue home medications DVT prophylaxis: No chemical anticoagulation due to surgery GI prophylaxis: Protonix Diet: Full liquid Disposition: Pending symptomatic improvement, advancing the diet. Also pending physical therapy evaluation to evaluate if patient will suffice with home health with physical therapy versus retirement facility placement for further rehab. If patient does well with physical therapy, anticipate discharge home once tolerating a GI soft diet
[2019-03-31] MEDS: NA CHLORIDE 0.9% 1,000 ML IV SCH ×3 (13:20→20:14)
--- NOTE | 2019-03-31 18:03 | P.PN ---
Subjective Date of Service: 03/31/19 Chief Complaint: Abdominal/chest pain Subjective: Improving (S/p lap minnie yesterday and is now lying in bed without complaint. Looks happy.) Review of Systems Unremarkable Physical Examination - Vital Signs Temperature: 97.6 F Blood Pressure: 110/65 Pulse: 65 Respirations: 18 Pulse Ox (%): 100 - Physical Exam General: Alert, In no apparent distress, Oriented x3, Cooperative HEENT: Atraumatic, Normocephalic, PERRLA, EOMI Neck: Supple Respiratory: Normal air movement Cardiovascular: Normal pulses Gastrointestinal: Soft and benign, No rebound, No guarding Neurological: Normal speech Assessment And Plan - Current Problems (Diagnosis) (1) Gallstone pancreatitis Current Visit: Yes Status: Acute (2) RUQ abdominal pain Current Visit: Yes Status: Acute (3) Nausea & vomiting Current Visit: Yes Status: Acute (4) Abnormal ultrasound Current Visit: Yes Status: Acute (5) Cholecystitis, chronic Current Visit: No Status: Acute (6) Elevated liver function tests Current Visit: No Status: Acute (7) Sepsis Current Visit: No Status: Acute Qualifiers: Sepsis type: sepsis due to unspecified organism Qualified Code(s): A41.9 - Sepsis, unspecified organism (8) Dementia Current Visit: No Status: Chronic Qualifiers: Dementia type: Alzheimer's disease - Plan REC: 1) diet and d/c as per surgery
[2019-03-31] MEDS: TAMSULOSIN 0.4 MG SR CAP PO SCH (20:15)
[2019-04-01] MEDS: PIPER/TAZO/NS 3.375gm 3.375 GM/100 ML BAG IVPB SCH ×2 (01:06→08:05)
[2019-04-01] MEDS: NA CHLORIDE 0.9% 1,000 ML IV SCH (01:07)
[2019-04-01] MEDS: FINASTERIDE 5 MG TAB PO SCH (08:06)
[2019-04-01] MEDS: SOTALOL HCL 80 MG TAB PO SCH (08:06)
[2019-04-01] MEDS: AMLODIPINE 10 MG TAB PO SCH (08:06)
[2019-04-01 11:14] LABS: Absolute Lymphocytes (CBC) 2.3 K/uL (0.7-4.9); Basophils % 0.6 % (0-1.3); Hematocrit 30.5 % (39.6-49.0); Lymphocytes % 26.7 % (15.3-44.8); MPV 8.8 fL (7.6-11.3); RBC Red Blood Cell Count 3.25 M/uL (4.33-5.43)
[2019-04-01 11:20] LABS: Albumin 3.1 g/dL (3.4-5.0); Bilirubin Total 0.7 mg/dL (0.2-1.0); Potassium 3.6 mmol/L (3.5-5.1)
[2019-04-01 12:19] VITALS: BP 133/62; TEMP 97.6
--- NOTE | 2019-04-01 13:16 | P.DS ---
Admission Date: 03/28/19 Discharge Date: 04/01/19 Disposition: ROUTINE DISCHARGE Discharge Condition: GOOD Reason for Admission: Abdominal/chest pain Consultations: General surgery Gastroenterology Procedures: Lap cholecystectomy Brief History of Present Illness: Patient is an 88-year-old gentleman who came to the hospital with abdominal discomfort and chest pressure. In the emergency room, he told staff that the pain was mainly anterior to the chest wall. However, when I saw him if he said his symptoms were completely resolved. He has dementia and is not a really great historian. His lipase was found to be elevated. He was recently in the hospital with elevated LFTs and at that time imaging studies revealed concern for cholecystitis. Patient was conservatively managed and discharged with outpatient follow-up. Patient had been doing well since his discharge until this chest pain episode. Currently, he is feeling much better with no complaints. He does not really remember why he came into the hospital. He is not really sure more about his elevated liver function testing in the recent past. And he's never been told that he has pancreatitis. He will be admitted for further evaluation. Hospital Course: Patient was admitted for pancreatitis, lipase was 30,000. General surgery and GI were consulted. His LFTs and liver function tests improved and lipase returned to normal. Patient may have passed a gallbladder stone. GI recommended general surgery for cholecystectomy. Patient underwent cholecystectomy. He did well post surgery. He was started on clear liquids, advanced to GI soft. Prior to discharge. Prior to discharge, he was tolerating a GI soft diet, he was hemodynamically stable, his symptoms had resolved and he was working well with physical therapy. Per daughter, patient already has a home health with physical therapy set up at the [facility]. She was encouraged to call them so they can restart physical therapy at home. Patient did work with physical therapy here, did fairly well and physical therapy recommends home health with PT. He otherwise did well throughout the stay. His diagnoses and treatment plan was explained to him and his daughter at bedside. All questions were answered, she verbalized understanding. He was then discharged home a safe and stable manner. Vital Signs/Physical Exam: Temp Pulse Resp BP Pulse Ox 97.6 F 60 17 133/62 98 04/01/19 12:00 04/01/19 12:00 04/01/19 12:00 04/01/19 12:00 04/01/19 12:00 General: Alert, In no apparent distress HEENT: Atraumatic, PERRLA, EOMI Neck: Supple, JVD not distended Respiratory: Clear to auscultation bilaterally, Normal air movement Cardiovascular: Regular rate/rhythm, Normal S1 S2 Gastrointestinal: Normal bowel sounds, No tenderness Musculoskeletal: No tenderness Integumentary: No rashes Neurological: Normal speech, Normal tone, Normal affect Lymphatics: No axilla or inguinal lymphadenopathy Laboratory Data at Discharge: WBC 8.7 K/uL (4.3-10.9) 04/01/19 10:40 Hgb 10.6 g/dL (13.6-17.9) L 04/01/19 10:40 Hct 30.5 % (39.6-49.0) L 04/01/19 10:40 Plt Count 199 K/uL (152-406) 04/01/19 10:40 PT 12.0 SECONDS (9.5-12.5) 03/28/19 14:32 INR 1.02 03/28/19 14:32 Sodium 141 mmol/L (136-145) 04/01/19 10:40 Potassium 3.6 mmol/L (3.5-5.1) 04/01/19 10:40 BUN 17 mg/dL (7-18) 04/01/19 10:40 Creatinine 1.20 mg/dL (0.55-1.3) 04/01/19 10:40 Glucose 141 mg/dL (74-106) H 04/01/19 10:40 Phosphorus 5.0 mg/dL (2.5-4.9) H 03/30/19 04:35 Magnesium 2.0 mg/dL (1.8-2.4) 03/30/19 04:35 Total Bilirubin 0.7 mg/dL (0.2-1.0) 04/01/19 10:40 AST 38 U/L (15-37) H 04/01/19 10:40 ALT 138 U/L (12-78) H D 04/01/19 10:40 Alkaline Phosphatase 113 U/L (45-117) 04/01/19 10:40 Troponin I < 0.02 ng/mL (0.0-0.045) 03/29/19 08:05 Triglycerides 73 mg/dL (<150) 03/29/19 03:32 Cholesterol 110 mg/dL (<200) 03/29/19 03:32 HDL Cholesterol 34 mg/dL (40-60) L 03/29/19 03:32 Cholesterol/HDL Ratio 3.24 03/29/19 03:32 Lipase 202 U/L (73-393) 03/30/19 04:35 Home Medications: Finasteride 5 mg PO DAILY 08/31/18 Simvastatin 10 mg PO BEDTIME 08/31/18 Tamsulosin [Flomax*] 0.4 mg PO BEDTIME 08/31/18 Aspirin Chewable [Aspirin Chewable*] 1 tab PO DAILY 02/28/19 Clopidogrel Bisulfate [Plavix*] 75 mg PO DAILY 02/28/19 Docosahexanoic AC/Epa [Fish Oil 1,000 MG*] 1 cap PO DAILY 02/28/19 Sotalol HCl [Betapace*] 1 tab PO BID 02/28/19 Verapamil HCl [Calan*] 2 tab PO 03/29/19 Patient Discharge Instructions: Please follow up with your primary care physician in 2-3 days. Return to the ER for worsening symtpoms. Please call your Home health to start your physcial therapy at home. Diet: Soft foods as tolerated Activity: Ad sharmila Followup: Param Dennis MD [ACTIVE - CAN ADMIT] - Brigido Chaidez MD [ASSOCIATE-ACTIVE - CAN ADMIT] - Time spent managing pt's care (in minutes): 55
== END 2019-04-01 13:40 | disposition home or self-care (01) | DRG 418 ==
LOC: ER 14:27 → ERHOLD 19:11 → 4TH 20:19
PROVIDERS: ADMIT Hospitalist; ATTEND Hospitalist
PROC: BF00YZZ Plain Radiography of Bile Ducts using Other Contrast (ICD-10-PCS; 2019-03-30)
PROC: 0FT44ZZ Resection of Gallbladder, Percutaneous Endoscopic Approach (ICD-10-PCS; principal; 2019-03-30 15:00)
DX: K85.10 Biliary acute pancreatitis without necrosis or infection (principal); K80.10 Calculus of gallbladder with chronic cholecystitis without obstruction; G30.9 Alzheimer's disease, unspecified; F02.80 Dementia in other diseases classified elsewhere, unspecified severity, without behavioral disturbance, psychotic disturbance, mood disturbance, and anxiety; I48.91 Unspecified atrial fibrillation; E78.5 Hyperlipidemia, unspecified; Z95.0 Presence of cardiac pacemaker
CPT/HCPCS: 36415; 71045; 74177; 74300; 80048; 80053; 80061; 80076; 81003; 82962; 83690; 83735; 83880; 84100; 84484; 85025; 85610; 87086; 87088; 88304; 93005; 93306; 96361; 96365; 96375; 97116; 97161; 97530; 99285; J2370; J2405; J2543; J2704; J2710; J3010; J7030; J7120; Q9967